=== PATIENT | female | born 1940 | race Caucasian/White ===

== ENCOUNTER → 2016-10-06 | Outpatient (CLI) | payer BC ==
[~2016-10-06] MED LIST: ASPEC325 PO; ATOR10TA88 PO; CHOL1000 PO; LEVO88TA PO; LPT40 PO; PRED-301 PO; SYN100 PO
[2016-10-06 11:19] LABS: ALT/SGPT 22 U/L (12-78); AST/SGOT 13 U/L (15-37); BLOOD UREA NITROGEN 19 mg/dl (7-18); BUN/CREATININE RATIO 23.8 (10-20); CALCIUM 8.5 mg/dl (8.5-10.1); CARBON DIOXIDE 30 mmol/L (21-32); CHLORIDE 106 mmol/L (98-107); GLUCOSE 110 mg/dl (70-99); POTASSIUM 4.1 mmol/L (3.5-5.1); SODIUM 141 mmol/L (136-145)
[2016-10-06 11:21] LABS: ESTIMATED AVERAGE GLUCOSE 123 mg/dl; HA1C FLAG Normal (Normal)
[2016-10-06 11:32] LABS: ALB/GLOB RATIO 1.1 (0.9-2); ALKALINE PHOSPHATASE 65 U/L (45-117); CHOLESTEROL 164 mg/dl (0-200); CHOLESTEROL/HDL RATIO 2.5; HDL CHOLESTEROL 66 mg/dl; LDL CHOLESTEROL CALCULATED 84 mg/dl; THYROID STIMULATING HORMONE 0.709 uIu/ml (0.300-4.500); TRIGLYCERIDES 71 mg/dl (0-150); VERY LOW DENSITY LIPOPROT CALC 14 mg/dl
--- NOTE | 2016-10-10 10:27 | CODING QUERY MEDICAL NECESSITY ---
SUPPORTING DIAGNOSIS NEEDED Dr. Lorenz, A supporting diagnosis is required for the test/procedure performed on this patient in order for us to be reimbursed by the patient's insurance. Please provide a supporting diagnosis for the following test/procedure listed below next to the test name along with your signature. *If there is no additional diagnosis for this patient that would support the following test/procedure please document that below next to the test/procedure. Test(s)/Procedure(s) that require a supporting diagnosis: * ([id number]) VITAMIN D ASSAY DIAGNOSIS: DATE OF SERVICE: 10/06/16 Provider Signature: Date: Thank you Kelvin Angel [facility] Information Management Once completed, please kindly fax back to [phone] For questions please call [phone]
== END | disposition home or self-care (01) ==
LOC: C.LABBC 08:10
PROVIDERS: ATTEND Internal Medicine Geriatric Medicine
DX: E03.9 Hypothyroidism, unspecified (principal); E04.2 Nontoxic multinodular goiter; E78.5 Hyperlipidemia, unspecified; R73.9 Hyperglycemia, unspecified; N95.0 Postmenopausal bleeding; E55.9 Vitamin D deficiency, unspecified

== ENCOUNTER → 2016-10-26 | Outpatient (CLI) | payer BC ==
[~2016-10-26] MED LIST changes: +ATOR10TA82 PO; -ATOR10TA88 PO
== END | disposition home or self-care (01) ==
LOC: C.LABSPEC 09:45
PROVIDERS: ATTEND Nurse Practitioner Family
DX: R39.9 Unspecified symptoms and signs involving the genitourinary system (principal)

== ENCOUNTER → 2016-11-13 | Outpatient (CLI) | payer BC ==
[2016-11-13 13:33] LABS: BASO % 0.4 %; BASO ABS # 0.04 K/uL (0-0.2); COMPLETE YES; EOS % 1.3 %; HEMATOCRIT 39.3 % (37-47); IG% 0.2 %; LYMPH % 14.4 %; LYMPH ABS # 1.35 K/uL (1.2-3.4); MEAN CELL VOLUME 91.8 fL (80-100); MEAN CORPUSCULAR HEMOGLOBIN 29.7 pg (25-34); MEAN CORPUSCULAR HGB CONC 32.3 g/dl (32-36); MEAN PLATELET VOLUME 10.2 fL (7.4-10.4); MONO % 15.3 %; NEUT % 68.4 %; PLATELET COUNT 319 K/uL (130-400); RED BLOOD COUNT 4.28 M/uL (4.2-5.4); WHITE BLOOD COUNT 9.37 K/uL (4.8-10.8)
[2016-11-13 14:18] LABS: LYME DISEASE AB IGG NEG (NEG)
[2016-11-13 14:19] LABS: LYME DISEASE AB IGM NEG (NEG)
[2016-11-13 14:30] LABS: ALT/SGPT 21 U/L (12-78); BLOOD UREA NITROGEN 16 mg/dl (7-18); CALCIUM 9.1 mg/dl (8.5-10.1); CARBON DIOXIDE 31 mmol/L (21-32); CHLORIDE 104 mmol/L (98-107); CREATININE 0.71 mg/dl (0.60-1.20); GLUCOSE 91 mg/dl (70-99); POTASSIUM 3.8 mmol/L (3.5-5.1); SODIUM 142 mmol/L (136-145)
[2016-11-13 14:33] LABS: ALB/GLOB RATIO 0.9 (0.9-2); ALKALINE PHOSPHATASE 74 U/L (45-117); AST/SGOT 15 U/L (15-37)
[2016-11-13 15:06] LABS: URINE APPEARANCE CLEAR (CLEAR); URINE BILIRUBIN NEG (NEG); URINE COLOR YELLOW; URINE EPITHELIAL CELL AUTO 0-5 /lpf (0-5); URINE NITRITE NEG (NEG); URINE PH 6.5 (4.5-7.5); URINE SPECIFIC GRAVITY 1.018 (1.000-1.030); UROBILINOGEN NEG (NEG)
[2016-11-13 15:20] LABS: MANUAL MICROSCOPIC REQUIRED? NO; REVIEW REQ? NO
== END | disposition home or self-care (01) ==
LOC: C.LABBC 09:11
PROVIDERS: ATTEND Physician Assistant Medical
DX: R50.9 Fever, unspecified (principal); R52 Pain, unspecified

== ENCOUNTER → 2016-11-20 | Outpatient (CLI) | payer BC ==
--- NOTE | 2016-11-20 12:16 | DIAGNOSTIC IMAGING REPORT ---
L-SPINE MIN 4 VIEWS ROUTINE CLINICAL HISTORY: R52 Generalized [id number] COMPARISON STUDY: 06/09/2008 FINDINGS: There is no pathologic bowel dilatation. There are surgical clips in the right upper quadrant consistent with a prior cholecystectomy. There are degenerative changes with marked disc space narrowing at the L5-S1 level. Since the prior study, the patient has developed superior endplate T12 and L1 compression deformities. There is progressive disc space narrowing at the L2-3 level. IMPRESSION: 1. Progressive degenerative changes 2. Interval development of superior endplate T12 and L1 compression deformities Electronically signed by: Atif [place] M.D. 11/20/2016 12:15 PM Dictated Date/Time: 11/20/2016 12:14 PM
--- NOTE | 2016-11-20 12:21 | DIAGNOSTIC IMAGING REPORT ---
RIGHT HUMERUS MIN 2 VIEWS ROUTINE CLINICAL HISTORY: R52 Generalized [id number] Right pain COMPARISON: None. DISCUSSION: Moderate generalized degenerative change of the right shoulder and to lesser extent right elbow. No well-defined acute bony abnormality. Possible nonacute Hill-Sachs type deformity posterior lateral aspect humeral head. There is no evidence for soft tissue swelling. IMPRESSION: Moderate degenerative change of the right elbow with somewhat more significant degenerative change right shoulder. No acute process specifically of the humerus Electronically signed by: Aaron Alaniz M.D. 11/20/2016 12:19 PM Dictated Date/Time: 11/20/2016 12:18 PM
[2016-11-22 15:58] LABS: ANA TITER 1:40 TITER (<1:40)
== END | disposition home or self-care (01) ==
LOC: C.RADBC 10:56
PROVIDERS: ATTEND Physician Assistant Medical
DX: R52 Pain, unspecified (principal); E55.9 Vitamin D deficiency, unspecified

== ENCOUNTER → 2016-11-27 | Outpatient (CLI) | payer BC | END | disposition home or self-care (01) | LOC: C.MAMM 12:30 | PROVIDERS: ATTEND Physician Assistant Medical | DX: R52 Pain, unspecified (principal); M85.852 Other specified disorders of bone density and structure, left thigh ==

== ENCOUNTER → 2016-12-19 | Outpatient (CLI) | payer BC ==
[2016-12-22 22:33] LABS: ANTI-CENTROMERE AB <1.0 NEG AI (<1.0 NEG); ANTI-SS-A <1.0 NEG AI (<1.0 NEG); ANTI-SS-B <1.0 NEG AI (<1.0 NEG); DNA ds CRITHIDIA NEGATIVE (NEGATIVE); PARVOVIRUS IgG INDEX 7.1 (<0.9); PARVOVIRUS IgM INDEX 0.1 (<0.9); Sm Antibody <1.0 NEG AI (<1.0 NEG)
== END ==
LOC: C.LABBC 07:28
PROVIDERS: ATTEND Internal Medicine Rheumatology
DX: M35.3 Polymyalgia rheumatica (principal); M79.1 Myalgia; R70.0 Elevated erythrocyte sedimentation rate

== ENCOUNTER → 2017-01-22 | Outpatient (CLI) | payer BC ==
[~2017-01-22] MED LIST changes: -ATOR10TA82 PO; +ATOR10TA88 PO
== END | disposition home or self-care (01) ==
LOC: C.LABBC 07:35
PROVIDERS: ATTEND Internal Medicine Rheumatology
DX: M35.3 Polymyalgia rheumatica (principal); Z79.52 Long term (current) use of systemic steroids

== ENCOUNTER → 2017-03-05 | Outpatient (CLI) | payer BC | END | disposition home or self-care (01) | LOC: C.LABBC 07:38 | PROVIDERS: ATTEND Internal Medicine Rheumatology | DX: E55.9 Vitamin D deficiency, unspecified (principal); M35.3 Polymyalgia rheumatica; Z79.52 Long term (current) use of systemic steroids ==

== ENCOUNTER → 2017-03-22 | Outpatient (CLI) | payer BC ==
[2017-03-22 11:26] LABS: BLOOD UREA NITROGEN 19 mg/dl (7-18); CARBON DIOXIDE 33 mmol/L (21-32); CHLORIDE 104 mmol/L (98-107); CREATININE 0.99 mg/dl (0.60-1.20); GLUCOSE 98 mg/dl (70-99); POTASSIUM 3.6 mmol/L (3.5-5.1); SODIUM 140 mmol/L (136-145)
[2017-03-22 11:34] LABS: BLOOD UREA NITROGEN 20 mg/dl (7-18)
== END | disposition home or self-care (01) ==
LOC: C.LABBC 07:28
PROVIDERS: ATTEND Dermatology
DX: Z85.820 Personal history of malignant melanoma of skin (principal); R51 Headache; E03.9 Hypothyroidism, unspecified; E55.9 Vitamin D deficiency, unspecified

== ENCOUNTER 2017-03-28 15:13 | Inpatient (IN) | payer BC, OTHER ==
[~2017-03-28] VITALS: Ht 162.6 cm; Wt 71.9 kg
[~2017-03-28 15:13] MED LIST changes: -ASPEC325 PO; -CHOL1000 PO; -GADAVIST IV PRN; -LPT40 PO; -PRED-301 PO; -SYN100 PO
[2017-03-28] MEDS ORDERED: SODIUM CHLORIDE 0.9% 1000ML 1,000 ML IV SCH (15:24)
[2017-03-28] MEDS ORDERED: PRED-301 PO (15:41)
[2017-03-28] MEDS ORDERED: SYN100 PO (15:41)
[2017-03-28] MEDS ORDERED: CHOL1000 PO (15:41)
[2017-03-28 16:05] LABS: BASO % 0.3 %; BASO ABS # 0.03 K/uL (0-0.2); COMPLETE YES; EOS % 0.1 %; HEMATOCRIT 45.1 % (37-47); IG% 0.3 %; LYMPH % 8.4 %; MEAN CELL VOLUME 92.6 fL (80-100); MEAN CORPUSCULAR HEMOGLOBIN 28.7 pg (25-34); MEAN PLATELET VOLUME 10.2 fL (7.4-10.4); MONO % 3.2 %; NEUT % 87.7 %; PLATELET COUNT 222 K/uL (130-400); RED BLOOD COUNT 4.87 M/uL (4.2-5.4); WHITE BLOOD COUNT 10.77 K/uL (4.8-10.8)
--- NOTE | 2017-03-28 16:05 | DIAGNOSTIC IMAGING REPORT ---
CHEST ONE VIEW PORTABLE HISTORY: Stroke COMPARISON: None. FINDINGS: Low lung volumes. The heart is normal in size. Mild diffuse interstitial thickening. Hazy appearance to the left lung base. No pneumothorax. IMPRESSION: 1. Mild diffuse interstitial thickening. This may be chronic. 2. Hazy appearance to the left lung base which may represent a small left pleural effusion or consolidation. Electronically signed by: Nasir Mullen M.D. 03/28/2017 4:04 PM Dictated Date/Time: 03/28/2017 4:03 PM
[2017-03-28 16:13] LABS: PARTIAL THROMBOPLASTIN RATIO 0.9; PROTHROMBIN TIME (PATIENT) 10.3 SECONDS (9.0-12.0)
[2017-03-28 16:18] VITALS: BP 137/85; PULSE 89; TEMP 36.7; O2SAT 96; Ht 162.6 cm; Wt 71.9 kg
[2017-03-28 16:23] LABS: BUN/CREATININE RATIO 17.4 (10-20); CALCIUM 8.7 mg/dl (8.5-10.1); CREATININE 0.96 mg/dl (0.60-1.20); POTASSIUM 3.6 mmol/L (3.5-5.1)
[2017-03-28 16:30] LABS: CKMB/CK RATIO 2.6 (0-3.0)
[2017-03-28] MEDS ORDERED: ASPIRIN 81 MG CHEW PO STA (16:34)
[2017-03-28] MEDS ORDERED: PHARMACIST DISCHARGE MED REC CONSULT PRN (17:15)
--- NOTE | 2017-03-28 17:44 | EMERGENCY ROOM VISIT NOTE ---
History Report prepared by Leta: Evangelina Suarez Under the Supervision of: Dr. Brijesh Mack D.O. First contact with patient: 15:18 Chief Complaint: ABNORMAL DIAGNOSTIC TESTING Stated Complaint: STROKE SYMPTOMS History of Present Illness The patient is a 76 year old female who presents to the Emergency Room after an abnormal MRI that she had this morning. The patient was diagnosed with polymyalgia rheumatica in October 2016. She has been getting "head pains" above her left eye since then. She describes this pain as a "pressure" in her head. She went to her sponge buffer who ordered an MRI of her brain. The patient had the MRI done this morning and was called later in the day. She was told that her scan was abnormal and she should come to the ED for further evaluation. The patient states that she had one episode a couple of weeks ago where she was dizzy but denies feeling unsteady on feet recently. She does have headaches intermittently. Pt denies changes in vision or speech, fevers, jaw pain, arm pain, chest pain, shortness of breath, nausea, vomiting, diarrhea, pain with urination, and melena. She denies any previous history of stroke or atrial fibrillation. Patient also admits to mild chest tightness on the right side of her chest this morning. She notes it did track up to her right jaw. She has had episodes like this before in the past which have woken her up from sleep. She did feel like indigestion. She did not come in for this as it was not on the left side. Source of History: patient Onset: this morning Position: head Quality: other (pressure) Timing: intermittent Associated Symptoms: No fevers, No chest pain, No SOB, No nausea, No vomiting, No melena, No diarrhea, No urinary symptoms Review of Systems See HPI for pertinent positives & negatives. A total of 10 systems reviewed and were otherwise negative. Past Medical & Surgical Medical Problems: (1) Polymyalgia rheumatica Family History Non-pertinent due to advanced age. Social History Smoking Status: Never Smoker Occupation Status: unemployed Current/Historical Medications Scheduled Atorvastatin (Lipitor), 5 MG PO HS Cholecalciferol (Vitamin D3), 5,000 INTER.UNIT PO DAILY Levothyroxine Sodium (Synthroid), 100 MCG PO QAM Prednisone (Prednisone), 17.5 MG PO DAILY Allergies Coded Allergies: Adhesives (Verified Allergy, Unknown, RASH AND ITCHING, 03/28/17) Bacitracin (Verified Allergy, Unknown, RASH AND ITCHING, 03/28/17) Neomycin (Verified Allergy, Unknown, RASH AND ITCHING, 03/28/17) Polymyxin B (Verified Allergy, Unknown, RASH AND ITCHING, 03/28/17) Acetaminophen (Verified Adverse Reaction, Unknown, NAUSEA, 03/28/17) Hydrocodone (Verified Adverse Reaction, Unknown, NAUSEA, 03/28/17) Physical Exam Vital Signs Date Time Temp Pulse Resp B/P (MAP) Pulse Ox O2 Delivery O2 Flow Rate FiO2 03/28/17 16:34 99 16 163/99 98 Room Air 03/28/17 16:18 36.7 89 18 137/85 96 Room Air 03/28/17 15:59 98 Room Air 03/28/17 15:55 96 03/28/17 15:15 36.7 97 18 97 Room Air Physical Exam GENERAL: alert, sitting up in bed, well appearing, well nourished, no distress, non-toxic EYE EXAM: normal conjunctiva, PERRL and EOM's intact OROPHARYNX: no exudate, no erythema, lips, buccal mucosa, and tongue normal and mucous membranes are moist NECK: supple, no nuchal rigidity, no adenopathy, non-tender LUNGS: Clear to auscultation. Normal chest wall mechanics HEART: no murmurs, S1 normal and S2 normal ABDOMEN: abdomen soft, non-tender, normo-active bowel sounds, no masses, no rebound or guarding. BACK: Back is symmetrical on inspection and there is no deformity, no midline tenderness, no CVA tenderness. SKIN: no rashes and no bruising UPPER EXTREMITIES: upper extremities are grossly normal. LOWER EXTREMITIES: No pitting edema. NEURO EXAM: Normal sensorium, cranial nerves II-XII intact, normal speech, no weakness of arms, no weakness of legs. No drift. Finger to nose intact. Gross sensation intact. Rapid alternating movements of the upper extremities intact. Medical Decision & Procedures ER Provider Diagnostic Interpretation: Radiology results as stated below per my review and the radiologist's interpretation: Brain MRI WITH AND WITHOUT CONTRAST HISTORY: HEADACHE, HX OF MELANOMA TECHNIQUE: Multiplanar multisequence MRI of the brain was performed both before and after the intravenous administration of contrast. COMPARISON STUDY: None. FINDINGS: Multiple scattered foci of increased signal within the cerebellar hemispheres, left posterior frontal lobe, and bilateral parietal and occipital lobes on the DWI sequences. The majority of these do not demonstrate clear loss of signal on the ADC map and therefore favor T2 shine through. The majority of these favor subacute to chronic infarcts. A single 5 mm focus within the left cerebellar hemisphere on image 5 appears to represent restricted diffusion and is consistent with an acute infarct. Dominant focus of suspected subacute infarct within the right cerebellar hemisphere measures 2 cm. Multiple additional small focal old infarcts within the bilateral cerebellar hemispheres and right parietal lobe. Some of these demonstrate faint linear enhancement best seen within the left posterior frontal lobe on image 16 and the right posterior cerebellum on image 5. This can also be seen in the setting of subacute infarcts. No areas of masslike enhancement identified. The major vascular flow-voids at the skull base are well-maintained. Small retention cysts within the left maxillary sinus. The orbits are unremarkable. Mild atrophic changes within the brain. There are also mild microvascular ischemic changes seen within the periventricular white matter. IMPRESSION: Multiple scattered areas of signal abnormality within the brain as described above with the majority favoring subacute to chronic infarcts. Possible punctate acute infarct within the left cerebellar hemisphere measuring 5 mm. The right cerebellar and left frontal areas of signal abnormality demonstrate faint linear enhancement which can be seen in the setting of subacute infarcts. No areas of masslike enhancement to suggest metastatic disease. A 1-2 month brain MRI follow-up is recommended to ensure the expected evolution of the subacute to chronic infarcts and resolution of the enhancement. These findings were discussed with Dr. Debra Giordano at 1:45 PM on 03/28/2017. CHEST ONE VIEW PORTABLE HISTORY: Stroke COMPARISON: None. FINDINGS: Low lung volumes. The heart is normal in size. Mild diffuse interstitial thickening. Hazy appearance to the left lung base. No pneumothorax. IMPRESSION: 1. Mild diffuse interstitial thickening. This may be chronic. 2. Hazy appearance to the left lung base which may represent a small left pleural effusion or consolidation. Electronically signed by: Nasir Mullen M.D. 03/28/2017 4:04 PM Dictated Date/Time: 03/28/2017 4:03 PM Laboratory Results 03/28/17 15:52 Red Blood Count 4.87, Mean Corpuscular Volume 92.6, Mean Corpuscular Hemoglobin 28.7, Mean Corpuscular Hemoglobin Concent 31.0, Mean Platelet Volume 10.2, Neutrophils (%) (Auto) 87.7, Lymphocytes (%) (Auto) 8.4, Monocytes (%) (Auto) 3.2, Eosinophils (%) (Auto) 0.1, Basophils (%) (Auto) 0.3, Neutrophils # (Auto) 9.45, Lymphocytes # (Auto) 0.90, Monocytes # (Auto) 0.35, Eosinophils # (Auto) 0.01, Basophils # (Auto) 0.03 03/28/17 15:52 Test 03/28/17 15:34 03/28/17 15:52 Bedside Prothrombin Time INR 1.0 (0.9-1.1) Bedside Glucose 168 mg/dl (70-90) White Blood Count 10.77 K/uL (4.8-10.8) Red Blood Count 4.87 M/uL (4.2-5.4) Hemoglobin 14.0 g/dL (12.0-16.0) Hematocrit 45.1 % (37-47) Mean Corpuscular Volume 92.6 fL (80-100) Mean Corpuscular Hemoglobin 28.7 pg (25-34) Mean Corpuscular Hemoglobin Concent 31.0 g/dl (32-36) Platelet Count 222 K/uL (130-400) Mean Platelet Volume 10.2 fL (7.4-10.4) Neutrophils (%) (Auto) 87.7 % Lymphocytes (%) (Auto) 8.4 % Monocytes (%) (Auto) 3.2 % Eosinophils (%) (Auto) 0.1 % Basophils (%) (Auto) 0.3 % Neutrophils # (Auto) 9.45 K/uL (1.4-6.5) Lymphocytes # (Auto) 0.90 K/uL (1.2-3.4) Monocytes # (Auto) 0.35 K/uL (0.11-0.59) Eosinophils # (Auto) 0.01 K/uL (0-0.5) Basophils # (Auto) 0.03 K/uL (0-0.2) RDW Standard Deviation 47.4 fL (36.4-46.3) RDW Coefficient of Variation 13.9 % (11.5-14.5) Immature Granulocyte % (Auto) 0.3 % Immature Granulocyte # (Auto) 0.03 K/uL (0.00-0.02) Prothrombin Time 10.3 SECONDS (9.0-12.0) Prothromb Time International Ratio 1.0 (0.9-1.1) Activated Partial Thromboplast Time 24.0 SECONDS (21.0-31.0) Partial Thromboplastin Ratio 0.9 Anion Gap 6.0 mmol/L (3-11) Est Creatinine Clear Calc Drug Dose 49.6 ml/min Estimated GFR () 66.6 Estimated GFR (Non- 57.4 BUN/Creatinine Ratio 17.4 (10-20) Calcium Level 8.7 mg/dl (8.5-10.1) Total Creatine Kinase 92 U/L (26-192) Creatine Kinase MB 2.4 ng/ml (0.5-3.6) Creatine Kinase MB Ratio 2.6 (0-3.0) Troponin I 0.046 ng/ml (0-0.045) Laboratory results per my review. Medications Administered Medications (Trade) Dose Ordered Sig/Carlos Route Start Time Stop Time Status Last Admin Dose Admin Sodium Chloride 1,000 ml @ 50 mls/hr Q20H IV 03/28/17 15:24 04/27/17 15:23 03/28/17 16:04 50 MLS/HR Aspirin (Aspirin Chew) 324 mg NOW STAT PO 03/28/17 16:34 03/28/17 16:50 DC 03/28/17 17:02 324 MG ECG Indication: other Rate (beats per minute): 92 Rhythm: sinus rhythm Findings: PAC, Q waves (Inferior) ED Course ED COURSE: Vital signs were reviewed and showed tachycardic. The patients medical record was reviewed The above diagnostic studies were performed and reviewed. ED treatments and interventions as stated above. 1518: The patient was evaluated in room C10. A complete history and physical examination was performed. 1524: NSS 1000 ml @ 50 mls/hr IV 1610: I spoke with Dr. Pride. We discussed the patient's case. The patient will be evaluated by the [facility] for further management. 1621: Upon reevaluation, the patient is resting comfortably. I discussed my findings with the patient and she understands and agrees with the treatment plan. Based on the patients age, coexisting illnesses, exam and lab findings the decision to treat as an inpatient was made. The patient remained stable while under my care. The patient will be evaluated for further management. 1633: I updated the patient on her ECG results. 1634: Aspirin 324 mg PO Medical Decision Differential Diagnosis includes but is not limited to ischemic Stroke, hemorrhagic stroke, bells palsy, mass, neoplasm, migraine headache, seizure, subarachnoid hemorrhage, TIA, and transient global amnesia. 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 She has been having intermittent headaches over the past several weeks. Last headache was yesterday. These are abnormal for her. She also admits to intermittent dizziness although the last time she can recall this occurring was 2 weeks ago. Patient is completely neurologic intact. MRI was reviewed. CBC all BNP is fairly unremarkable. Troponin was elevated at 0.046. This is consistent with a possible N STEMI which would be explained by her chest pain this morning. She has absolutely no chest pain or shortness of breath currently. EKG shows no acute ischemia. She was given aspirin. She has nothing to suggest a dissection. Patient family were updated at bedside. I discussed case with internal medicine. She'll be admitted for further workup of CVA and NSTEMI. Medication Reconcilliation Current Medication List: was personally reviewed by me Blood Pressure Screening Patient's blood pressure: Normal blood pressure Consults Time Called: 1604 Consulting Physician: Dr. Pride Returned Call: [address] Pride. We discussed the patient's case. The patient will be evaluated by the [facility] for further management. Impression Primary Impression: CVA (cerebral vascular accident) Additional Impression: NSTEMI (non-ST elevated myocardial infarction) Scribe Attestation The scribe's documentation has been prepared under my direction and personally reviewed by me in its entirety. I confirm that the note above accurately reflects all work, treatment, procedures, and medical decision making performed by me. Departure Information Dispostion Being Evaluated By Hospitalist Milton Ramos M.D. (PCP) Patient Instructions My [facility] Stroke History Time Last Known Well Unknown Stroke t-PA Criteria Reviewed Does NOT meet criteria for t-PA Reason t-PA Not Given Treatment not indicated Problem Qualifiers Primary Impression: CVA (cerebral vascular accident) CVA mechanism: unspecified Qualified Codes: I63.9 - Cerebral infarction, unspecified
[2017-03-28] MEDS ORDERED: POLYETHYLENE (MIRALAX) 17 GM PACK PO PRN (18:00)
[2017-03-28] MEDS ORDERED: MoRPHine SULFATE 2 MG/ML CARP IV PRN (18:00)
[2017-03-28] MEDS ORDERED: ALUMINUM/MAGNESIUM/SIMETH (MAALOX MAX) 30 ML UDC PO PRN (18:00)
[2017-03-28] MEDS ORDERED: ACETAMINOPHEN 325 MG TAB PO PRN (18:00)
[2017-03-28] MEDS ORDERED: ONDANSETRON INJ 2 MG/ML 2 ML VIAL IV PRN (18:00)
[2017-03-28] MEDS ORDERED: MAGNESIUM HYDROXIDE SUSP 30 ML UDC PO PRN (18:00)
[2017-03-28 18:34] VITALS: O2SAT 98
--- NOTE | 2017-03-28 18:38 | History and Physical ---
History & Physical Date & Time of Service: Mar 28, 2017 at 18:13 Chief Complaint: Stroke Symptoms Primary Care Physician: Milton Lorenz M.D. History of Present Illness Source: patient 76 y/o F Hx polymyalgia rheumatica, HPL, melanoma. Pt was at her image archivist office earlier in day and had c/o a chronic frontal LAZAR which she thought was sinus-related. The image archivist reasoned that due to her history of melanoma and current steroid use, she should have an MRI to r/o a lesion. She has not c/ o visual disturbances or temporal pain. The pt had an MRI and then proceeded to [employer] for shopping. She was phoned by her image archivist's office due to abnormal MRI findings indicating multiple areas of subacute infarct in addition to an area of suspected acute infarct. She describes having a brief dizzy spell 1-2 weeks ago but otherwise does not describe any symptoms which may correlate with a CVA. Initial labs revealed a borderline troponin elevation. This lead to additional questioning where the pt stated she had had some R sided CP in the AM. She did not ave accompanying symptoms of SOB, nausea or diaphoresis. Initial EKG is not consistent with acute ischemia. The pt is awake. alert and denies any acute symptoms at the time of admission. Past Medical/Surgical History Medical Problems: (1) Polymyalgia rheumatica Status: Chronic 2) Hyperlipidemia 3) Hypothyroidism 4) Melanoma - 3 lesions excised from L forearm Family History Mother at age 99 - CHF Father at age 94 - unspecified CA Social History Pt is independent - does not drink or smoke Smoking Status: Never Smoker Occupational Status: unemployed Multi-Drug Resistant Organisms History of MDRO: No Allergies Coded Allergies: Adhesives (Verified Allergy, Unknown, RASH AND ITCHING, 03/28/17) Bacitracin (Verified Allergy, Unknown, RASH AND ITCHING, 03/28/17) Neomycin (Verified Allergy, Unknown, RASH AND ITCHING, 03/28/17) Polymyxin B (Verified Allergy, Unknown, RASH AND ITCHING, 03/28/17) Acetaminophen (Verified Adverse Reaction, Unknown, NAUSEA, 03/28/17) Hydrocodone (Verified Adverse Reaction, Unknown, NAUSEA, 03/28/17) Home Medications Scheduled Atorvastatin (Lipitor), 5 MG PO HS Cholecalciferol (Vitamin D3), 5,000 INTER.UNIT PO DAILY Levothyroxine Sodium (Synthroid), 100 MCG PO QAM Prednisone (Prednisone), 17.5 MG PO DAILY Review of Systems Constitutional: No fever, No chills, No sweats Eyes: No worsening of vision ENT: No hearing loss, No nasal symptoms Respiratory: No cough, No wheezing Cardiovascular: No chest pain, No orthopnea, No PND Abdomen: No pain, No nausea, No vomiting Musculoskeletal: + joint pain, + muscle pain (Chronic) Genitourinary - Female: No dysuria Neurologic: + weakness, + problem reported (Chronic frontal LAZAR), No memory loss , No paralysis Psychiatric: No depression symptoms Endocrine: + fatigue Hematologic / Lymphatic: No abnormal bleeding/bruising Integumentary: No rash Allergic / Immunologic: No environmental allergies Physical Exam Vital Signs Date Time Temp Pulse Resp B/P (MAP) Pulse Ox O2 Delivery O2 Flow Rate FiO2 03/28/17 16:34 99 16 163/99 98 Room Air 03/28/17 16:18 36.7 89 18 137/85 96 Room Air 03/28/17 15:59 98 Room Air 03/28/17 15:55 96 03/28/17 15:15 36.7 97 18 97 Room Air General Appearance: WD/WN, no apparent distress, + pertinent finding (Pleasant elderly female - no acute distress) Head: normocephalic Eyes: normal inspection ENT: normal ENT inspection, pharynx normal Neck: supple, no JVD Respiratory/Chest: chest non-tender, lungs clear, normal breath sounds Cardiovascular: regular rate, rhythm, no edema, no gallop Abdomen/GI: normal bowel sounds, non tender, soft Back: normal inspection, no CVA tenderness Extremities/Musculoskelatal: normal inspection, no calf tenderness, normal capillary refill, no pedal edema, normal range of motion Neurologic/Psych: overhauler II-XII nml as tested, no motor/sensory deficits, alert, normal mood/affect, normal reflexes, oriented x 3 Skin: normal color, warm/dry, no rash Diagnostics Laboratory Results Results Past 24 Hours Test 03/28/17 15:34 03/28/17 15:52 Range/Units Bedside Prothrombin Time INR 1.0 0.9-1.1 Bedside Glucose 168 70-90 mg/dl White Blood Count 10.77 4.8-10.8 K/uL Red Blood Count 4.87 4.2-5.4 M/uL Hemoglobin 14.0 12.0-16.0 g/dL Hematocrit 45.1 37-47 % Mean Corpuscular Volume 92.6 80-100 fL Mean Corpuscular Hemoglobin 28.7 25-34 pg Mean Corpuscular Hemoglobin Concent 31.0 32-36 g/dl Platelet Count 222 130-400 K/uL Mean Platelet Volume 10.2 7.4-10.4 fL Neutrophils (%) (Auto) 87.7 % Lymphocytes (%) (Auto) 8.4 % Monocytes (%) (Auto) 3.2 % Eosinophils (%) (Auto) 0.1 % Basophils (%) (Auto) 0.3 % Neutrophils # (Auto) 9.45 1.4-6.5 K/uL Lymphocytes # (Auto) 0.90 1.2-3.4 K/uL Monocytes # (Auto) 0.35 0.11-0.59 K/uL Eosinophils # (Auto) 0.01 0-0.5 K/uL Basophils # (Auto) 0.03 0-0.2 K/uL RDW Standard Deviation 47.4 36.4-46.3 fL RDW Coefficient of Variation 13.9 11.5-14.5 % Immature Granulocyte % (Auto) 0.3 % Immature Granulocyte # (Auto) 0.03 0.00-0.02 K/uL Prothrombin Time 10.3 9.0-12.0 SECONDS Prothromb Time International Ratio 1.0 0.9-1.1 Activated Partial Thromboplast Time 24.0 21.0-31.0 SECONDS Partial Thromboplastin Ratio 0.9 Sodium Level 140 136-145 mmol/L Potassium Level 3.6 3.5-5.1 mmol/L Chloride Level 106 98-107 mmol/L Carbon Dioxide Level 28 21-32 mmol/L Anion Gap 6.0 3-11 mmol/L Blood Urea Nitrogen 17 7-18 mg/dl Creatinine 0.96 0.60-1.20 mg/dl Est Creatinine Clear Calc Drug Dose 49.6 ml/min Estimated GFR () 66.6 Estimated GFR (Non- 57.4 BUN/Creatinine Ratio 17.4 10-20 Random Glucose 173 70-99 mg/dl Calcium Level 8.7 8.5-10.1 mg/dl Total Creatine Kinase 92 26-192 U/L Creatine Kinase MB 2.4 0.5-3.6 ng/ml Creatine Kinase MB Ratio 2.6 0-3.0 Troponin I 0.046 0-0.045 ng/ml Diagnostic Radiology MRI brain: Multiple scattered areas of signal abnormality within the brain as described above with the majority favoring subacute to chronic infarcts. Possible punctate acute infarct within the left cerebellar hemisphere measuring 5 mm. The right cerebellar and left frontal areas of signal abnormality demonstrate faint linear enhancement which can be seen in the setting of subacute infarcts. No areas of masslike enhancement to suggest metastatic disease. A 1-2 month brain MRI follow-up is recommended to ensure the expected evolution of the subacute to chronic infarcts and resolution of the enhancement. EKG Sinus - normal axis - inf Q wvs - no acute ischemia changes Impression Assessment and Plan 76 y/o F Hx polymyalgia rheumatica, HPL, melanoma. Pt was at her image archivist office earlier in day and had c/o a chronic frontal LAZAR which she thought was sinus-related. The image archivist reasoned that due to her history of melanoma and current steroid use, she should have an MRI to r/o a lesion. She was then phoned by her image archivist's office due to abnormal MRI findings indicating multiple areas of subacute infarct in addition to an area of suspected acute infarct. She describes having a brief dizzy spell 1-2 weeks ago but otherwise does not describe any symptoms which may correlate with a CVA. Initial labs revealed a borderline troponin elevation. This lead to additional questioning where the pt stated she had had some R sided CP in the AM. Initial EKG is not consistent with acute ischemia. 1) CVA - multiple affected areas without significant impairments - may indicate emboli. Pt admitted with CVA protocol - will provide ASA, increase statin dose - MRA,echo, neuro consult pending. 2) Elevated trop - echo pending - currently asymptomatic - no history of heart disease - Statin dose increased although may not tolerate high-intensity therapy due to chronic muscle pain. Echo and serial trops in addition to cardio consult requested. 3) Polymyalgia - will remain on prescribed dose of prednisone. Full code - Lovenox prophylaxis Total time for this admit including review of labs, meds, EKG, imaging, records - discussion with pt, family and ER attending - 40 min Level of Care Telemetry Advanced Directives Existing Living Will: Yes Existing Power of Life Guard: Yes Resuscitation Status FULL RESUSCITATION VTE Prophylaxis VTE Risk Assessment Done? Y/N: Yes Risk Level: High Given or contraindicated: Enoxaparin (Lovenox)SQ
[2017-03-28 19:30] VITALS: BP 154/101; PULSE 76; TEMP 36.5; O2SAT 97
--- NOTE | 2017-03-28 19:48 | DIAGNOSTIC IMAGING REPORT ---
CAROTID ARTERY ULTRASOUND CLINICAL HISTORY: Stroke. COMPARISON STUDY: None. TECHNIQUE: Real-time, grayscale, and color Doppler sonography of the carotid and vertebral arteries was performed. Images were viewed in the transverse and longitudinal planes. FINDINGS: There is mild atherosclerotic plaque. Velocity measurements are listed below. COMMON CAROTID PEAK SYSTOLIC VELOCITY (CM/S): RIGHT 59 LEFT 86 ICA PEAK SYSTOLIC VELOCITY (CM/S): RIGHT 56 LEFT 62 The systolic ratios between the internal to common carotid arteries are normal. Antegrade flow is seen in the vertebral arteries. The external carotid arteries are patent. Blood pressure in the right arm measured 150/81. Blood pressure in the left arm measured 139/58. IMPRESSION: No evidence of a hemodynamically significant stenosis. Electronically signed by: Dane Bal M.D. 03/28/2017 7:47 PM Dictated Date/Time: 03/28/2017 7:45 PM
[2017-03-28] MEDS ORDERED: ATORVASTATIN 10 MG TAB PO SCH ×2 (21:00)
[2017-03-28] MEDS: ENOXAPARIN 40 MG/0.4 ML SYR SC SCH (21:14)
[2017-03-28 23:06] VITALS: BP 146/75; PULSE 65; TEMP 36.4; O2SAT 98
[2017-03-29 02:41] LABS: BASO % 0.3 %; BASO ABS # 0.03 K/uL (0-0.2); COMPLETE YES; EOS % 1.2 %; IG% 0.3 %; LYMPH % 27.2 %; LYMPH ABS # 2.47 K/uL (1.2-3.4); MEAN CELL VOLUME 90.9 fL (80-100); MEAN CORPUSCULAR HEMOGLOBIN 29.7 pg (25-34); MEAN CORPUSCULAR HGB CONC 32.6 g/dl (32-36); MONO % 10.9 %; NEUT % 60.1 %; PLATELET COUNT 194 K/uL (130-400); RED BLOOD COUNT 4.18 M/uL (4.2-5.4); WHITE BLOOD COUNT 9.09 K/uL (4.8-10.8)
[2017-03-29 02:43] LABS: POTASSIUM 3.5 mmol/L (3.5-5.1)
[2017-03-29 02:45] LABS: BUN/CREATININE RATIO 20.3 (10-20); CREATININE 0.71 mg/dl (0.60-1.20)
[2017-03-29 02:48] LABS: CHOLESTEROL/HDL RATIO 2.7; MAGNESIUM 2.4 mg/dl (1.8-2.4)
[2017-03-29 03:41] VITALS: BP 146/81; PULSE 65; TEMP 36.6; O2SAT 96
[2017-03-29] MEDS: LEVOTHYROXINE 100 MCG TAB PO SCH (06:28)
[2017-03-29 06:39] LABS: ESTIMATED AVERAGE GLUCOSE 131 mg/dl; HA1C FLAG Normal (Normal)
[2017-03-29] MEDS: ASPIRIN 325 MG ECTAB PO SCH (08:18)
[2017-03-29] MEDS: CHOLECALCIFEROL 1000 INTER.UNIT TAB PO SCH (08:23)
[2017-03-29 08:37] VITALS: BP 109/57; PULSE 67; TEMP 36.3; O2SAT 98
[2017-03-29] MEDS ORDERED: ASPIRIN 81 MG ECTAB PO SCH (09:00)
--- NOTE | 2017-03-29 09:09 | Neurology Consultation ---
Neurology Consultation Date of Consultation: Mar 29, 2017. Attending Physician: Rio Roman M.D. Primary Care Physician: Milton Lorenz M.D. Reason for Consultation: Stroke History of Present Illness Source: patient, hospital records The patient is a 76-year-old female who has been admitted to the hospital for further evaluation of abnormalities on an outpatient MRI done yesterday morning , potentially consistent with multiple subacute and acute infarcts. The study was ordered by her physical therapy technician, Dr. Giordano, for further assessment of a vague left frontal headache, dizziness, and unsteady gait that has been present to varying degrees since this past October. The patient does have a history of melanoma that was discovered in the left forearm over 20 years ago and was successfully treated. The patient was diagnosed with polymyalgia rheumatica in October of this year by Dr. Dubose and is prescribed prednisone. Her primary symptoms, however, at that time consisted of proximal muscle pain which has resolved with corticosteroid therapy. The patient also reports some recent right -sided chest discomfort which radiates into the right shoulder region which she has been attributing to musculoskeletal pain. The patient does not have a known history of heart disease or arrhythmia. Electrocardiogram as revealed a sinus rhythm with PACs, 92 bpm. Her troponins have been mildly elevated. Her sedimentation rate completed in October was 41. Most recent sedimentation rate is 21. She is currently taking 17.5 mg of prednisone per day. I reviewed the images as well as the radiologist's interpretation of the recently completed brain MRI. The study does reveal multiple, scattered, subacute ischemic infarcts. There is an acute infarct within the left cerebellum measuring about 5 mm. There are areas of faint post contrast enhancement, one within the right cerebellar hemisphere, and other within the left frontal lobe consistent with subacute infarcts. There is no evidence of hemorrhage. The imaging findings seem to be more consistent with multifocal infarct rather than metastatic disease. A follow-up MRI in one to 2 months has been suggested. Past Medical/Surgical History Medical Problems: (1) CVA (cerebral vascular accident) Status: Acute (2) NSTEMI (non-ST elevated myocardial infarction) Status: Acute Family History Family history notable for congestive heart failure in the mother and an unspecified malignancy in father. Social History Occupation Status: unemployed Allergies Coded Allergies: Adhesives (Verified Allergy, Unknown, RASH AND ITCHING, 03/28/17) Bacitracin (Verified Allergy, Unknown, RASH AND ITCHING, 03/28/17) Neomycin (Verified Allergy, Unknown, RASH AND ITCHING, 03/28/17) Polymyxin B (Verified Allergy, Unknown, RASH AND ITCHING, 03/28/17) Acetaminophen (Verified Adverse Reaction, Unknown, NAUSEA, 03/28/17) Hydrocodone (Verified Adverse Reaction, Unknown, NAUSEA, 03/28/17) Current Inpatient Medications Current Inpatient Medications Medications (Trade) Dose Ordered Sig/Carlos Route Start Time Stop Time Status Last Admin Dose Admin Cholecalciferol (Vitamin D Tab) 5,000 inter.unit DAILY PO 03/29/17 09:00 04/28/17 08:59 03/29/17 08:23 5,000 INTER.UNIT Levothyroxine Sodium (Synthroid Tab) 100 mcg DAILYBB PO 03/29/17 06:00 04/28/17 06:59 03/29/17 06:28 100 MCG Prednisone (PredniSONE TAB) 17.5 mg DAILY PO 03/29/17 09:00 04/28/17 08:59 03/29/17 08:20 17.5 MG Miscellaneous Information (Pharmacist Discharge Med Rec Consult) 1 ea UD PRN N/A 03/28/17 17:15 04/27/17 17:14 Enoxaparin Sodium (Lovenox Inj) 40 mg HS SC 03/28/17 21:00 04/27/17 20:59 03/28/17 21:14 40 MG Acetaminophen (Tylenol Tab) 650 mg Q4H PRN PO 03/28/17 18:00 04/27/17 17:59 Al Hydrox/Mg Hydrox/Simethicone (Maalox Max Susp) 15 ml Q4H PRN PO 03/28/17 18:00 04/27/17 17:59 Magnesium Hydroxide (Milk Of Magnesia Susp) 30 ml Q12H PRN PO 03/28/17 18:00 04/27/17 17:59 Ondansetron HCl (Zofran Inj) 4 mg Q6H PRN IV 03/28/17 18:00 04/27/17 17:59 Morphine Sulfate (MoRPHine SULFATE INJ) 2 mg Q30M PRN IV 03/28/17 18:00 04/11/17 17:59 Polyethylene (Miralax Powder Packet) 17 gm DAILY PRN PO 03/28/17 18:00 04/27/17 17:59 Aspirin (Ecotrin Tab) 325 mg QAM PO 03/29/17 09:00 04/28/17 08:59 03/29/17 08:18 325 MG Atorvastatin Calcium (Lipitor Tab) 10 mg HS PO 03/28/17 21:00 04/27/17 20:59 03/28/17 21:13 10 MG Review of Systems Constitutional: Patient denies fever or chills Eyes: No vision loss or diplopia ENT: No vertigo or hearing loss Cardiovascular: As per history of present illness Respiratory: No coughing or shortness of breath Neurological: As per history of present illness Hematologic: No abnormal bleeding or swollen glands Dermatologic: As per history of present illness Musculoskeletal: As per history of present illness A full 10 point review of systems was obtained from this patient with pertinent positives and negatives described in history of present illness and otherwise listed above. All other systems reviewed and are negative. Physical Exam Vital Signs (Past 24 Hrs): Date Time Temp Pulse Resp B/P (MAP) Pulse Ox O2 Delivery O2 Flow Rate FiO2 03/29/17 08:37 36.3 67 14 109/57 (74) 98 Room Air 03/29/17 04:00 Room Air 03/29/17 03:41 36.6 65 17 146/81 (102) 96 Room Air 03/28/17 23:59 Room Air 03/28/17 23:06 36.4 65 20 146/75 (98) 98 Room Air 03/28/17 20:00 Room Air 03/28/17 19:30 36.5 76 18 154/101 (118) 97 Room Air 03/28/17 18:34 82 16 145/72 98 Room Air 03/28/17 16:34 99 16 163/99 98 Room Air 03/28/17 16:18 36.7 89 18 137/85 96 Room Air 03/28/17 15:59 98 Room Air 03/28/17 15:55 96 03/28/17 15:15 36.7 97 18 97 Room Air The patient is a well-developed, well-nourished, elderly female. She is sitting up comfortably in bed. The patient is alert and oriented to person place and time. Recent and remote memory intact. She is attentive with normal concentration and exhibits a normal spontaneous speech pattern. She names objects without difficulty. Patient exhibits an age-appropriate fund of knowledge and normal vocabulary. Visual villareal full to confrontation. Visual acuity normal. Pupils equal round reactive to light and accommodation. Eye movements normal. Facial sensation intact bilaterally. There is normal facial strength. No facial droop. Hearing intact to finger rub bilaterally. Palate elevates to midline. Shoulder shrug strength intact bilaterally. Tongue protrudes to midline. Sensation intact to light touch, temperature, vibration, and proprioception in all 4 limbs. Deep tendon reflexes are intact and symmetrical for the arms and legs bilaterally. Plantar responses downgoing bilaterally. There is no dysdiadochokinesia or dysmetria with finger to nose or heel to zapata bilaterally. Ophthalmoscopic examination reveals normal-appearing optic disks and posterior segments. No papilledema or hemorrhages. Carotid pulses normal bilaterally, no bruits to auscultation. Gait and station normal. Patient exhibits normal muscle strength and tone for all 4 limbs. There is no atrophy. No abnormal movements observed. Laboratory Results Past 24 Hours: 03/29/17 02:09 Red Blood Count 4.18, Mean Corpuscular Volume 90.9, Mean Corpuscular Hemoglobin 29.7, Mean Corpuscular Hemoglobin Concent 32.6, Mean Platelet Volume 10.0, Neutrophils (%) (Auto) 60.1, Lymphocytes (%) (Auto) 27.2, Monocytes (%) (Auto) 10.9, Eosinophils (%) (Auto) 1.2, Basophils (%) (Auto) 0.3, Neutrophils # (Auto ) 5.46, Lymphocytes # (Auto) 2.47, Monocytes # (Auto) 0.99, Eosinophils # (Auto ) 0.11, Basophils # (Auto) 0.03 03/29/17 02:09 Test 03/28/17 15:34 03/28/17 15:52 03/29/17 02:09 Bedside Prothrombin Time INR 1.0 (0.9-1.1) Bedside Glucose 168 mg/dl (70-90) Prothrombin Time 10.3 SECONDS (9.0-12.0) Prothromb Time International Ratio 1.0 (0.9-1.1) Activated Partial Thromboplast Time 24.0 SECONDS (21.0-31.0) Partial Thromboplastin Ratio 0.9 Estimated Average Glucose 131 mg/dl Hemoglobin A1c 6.2 % (4.5-5.6) Total Creatine Kinase 92 U/L (26-192) Creatine Kinase MB 2.4 ng/ml (0.5-3.6) Creatine Kinase MB Ratio 2.6 (0-3.0) White Blood Count 9.09 K/uL (4.8-10.8) Red Blood Count 4.18 M/uL (4.2-5.4) Hemoglobin 12.4 g/dL (12.0-16.0) Hematocrit 38.0 % (37-47) Mean Corpuscular Volume 90.9 fL (80-100) Mean Corpuscular Hemoglobin 29.7 pg (25-34) Mean Corpuscular Hemoglobin Concent 32.6 g/dl (32-36) Platelet Count 194 K/uL (130-400) Mean Platelet Volume 10.0 fL (7.4-10.4) Neutrophils (%) (Auto) 60.1 % Lymphocytes (%) (Auto) 27.2 % Monocytes (%) (Auto) 10.9 % Eosinophils (%) (Auto) 1.2 % Basophils (%) (Auto) 0.3 % Neutrophils # (Auto) 5.46 K/uL (1.4-6.5) Lymphocytes # (Auto) 2.47 K/uL (1.2-3.4) Monocytes # (Auto) 0.99 K/uL (0.11-0.59) Eosinophils # (Auto) 0.11 K/uL (0-0.5) Basophils # (Auto) 0.03 K/uL (0-0.2) RDW Standard Deviation 46.1 fL (36.4-46.3) RDW Coefficient of Variation 14.0 % (11.5-14.5) Immature Granulocyte % (Auto) 0.3 % Immature Granulocyte # (Auto) 0.03 K/uL (0.00-0.02) Anion Gap 4.0 mmol/L (3-11) Est Creatinine Clear Calc Drug Dose 67.0 ml/min Estimated GFR () 95.9 Estimated GFR (Non- 82.7 BUN/Creatinine Ratio 20.3 (10-20) Calcium Level 8.0 mg/dl (8.5-10.1) Magnesium Level 2.4 mg/dl (1.8-2.4) Troponin I 0.054 ng/ml (0-0.045) Triglycerides Level 108 mg/dl (0-150) Cholesterol Level 182 mg/dl (0-200) HDL Cholesterol 68 mg/dl LDL Cholesterol, Calculated 92 mg/dl VLDL Cholesterol, Calculated 22 mg/dl Cholesterol/HDL Ratio 2.7 Impression This is a 76-year-old female who has been experiencing a vague left frontal headache, dizziness, and unsteady gait occurring to varying degrees over the past few months. Her recently completed brain MRI suggests multiple cerebral infarcts in multiple vascular territories, some of these are acute while others are subacute. The appearance of these infarcts is concerning for occult cardioembolism. However, the patient was diagnosed with polymyalgia rheumatica this past spring and is currently prescribed corticosteroids. Thus, I am unable to exclude the possibility of temporal arteritis which may be associated with PMR. Metastatic disease related to her remote history (over 20 years ago) of melanoma would be very unlikely but cannot be completely excluded at this time. Plan I agree with obtaining an MRA of the head and neck as ordered. MR angiography of the head would be useful to exclude vasculitis. Review results of transthoracic echocardiogram when available. Continue cardiac monitoring to screen for significant arrhythmia including atrial fibrillation. I agree with daily aspirin at this time. I agree with the radiology recommendation to complete a follow-up brain MRI with and without contrast in one month in light of her history of melanoma. I would obtain an up-to-date sedimentation rate. Would consider obtaining a consultation with her cupola liner helper, Dr. Dubose. I would consider obtaining a temporal artery biopsy in this patient as well.
--- NOTE | 2017-03-29 10:27 | ECHOCARDIOGRAM REPORT ---
*NOTICE TO RECEIVING LIBERTARIAN AGENCY This information is strictly Confidential and protected under [place] law. [place] law prohibits you from making any further disclosure of this information unless further disclosure is expressly permitted by the written consent of the person to whom it pertains or is authorized by law. A general authorization for the release of medical or other information is not sufficient for this purpose. Hospital accepts no responsibility if the information is made available to any other person, INCLUDING THE PATIENT. Interpretation Summary * Name: PHYLLIS DALEY Study Date: 03/29/2017 06:24 AM BP: 146/81 mmHg * Patient Location: C.2E\[id number]\E202\S\1 HR: 65 * : 1940 (M/d/yyyy) Gender: Female Height: 64 in * Age: 76 yrs Ethnicity: CA Weight: 166 lb * Ordering Physician: Rolan Pride * Referring Physician: Elodia Giordano * Performed By: Mariia Chambers RDCS * * Reason For Study: EMBOLI/CVA * BSA: 1.8 m2 * -- Conclusions -- * 1. Normal left ventricular size and systolic function. EF 60-65%. No regional wall motion abnormalities. Mild concentric left ventricular hypertrophy. Type 2 diastolic dysfunction. * 2. No visualized ASD or PFO. No right to left atrial shunt noted following agitated saline injection. * 3. Mild aortic regurgitation. * 4. There is mild mitral regurgitation. * 5. No prior study available for comparison. Procedure Details * A saline contrast injection was performed to assess for cardiac shunting. * The injection was performed through an intravenous line in the right arm. * The attending nurse who injected the saline contrast was ANJU BURGESS RN. * A total of 20 cc of agitated saline was given. Left Ventricle * Normal left ventricular size and systolic function. EF 60-65%. No regional wall motion abnormalities. Mild concentric left ventricular hypertrophy. Type 2 diastolic dysfunction, pseudo normalized pattern. Right Ventricle * The right ventricle is normal in size and function. * The right ventricular systolic function is normal as assessed by tricuspid annular plane systolic excursion (TAPSE) (normal >1.5 cm). Atria * The left atrial size is normal. * Right atrial size is normal. * No visualized ASD or PFO. No right to left atrial shunt noted following agitated saline injection. Mitral Valve * The mitral valve leaflets appear normal. There is no evidence of stenosis, fluttering, or prolapse. * There is mild mitral regurgitation. Tricuspid Valve * The tricuspid valve is not well visualized, but is grossly normal. * There is no tricuspid stenosis. * Significant tricuspid regurgitation is absent. Aortic Valve * The aortic valve is trileaflet. * No hemodynamically significant valvular aortic stenosis. * Mild aortic regurgitation. Pulmonic Valve * The pulmonary valve is inadequately visualized, but the Doppler data is adequate for interpretation. * There is no pulmonic valvular stenosis. * There is no significant pulmonary regurgitation. Great Vessels * The aortic root is normal size. * Ascending aorta of normal dimension Pericardium/Pleural * There is no pericardial effusion. Great Vessels * Normal inferior vena cava size and collapsability with sniff indicates a normal right atrial pressure of 3 mmHg Left Ventricular Diastolic Function * Diastolic dysfunction, Grade II (pseudonormalization pattern). MMode 2D Measurements and Calculations IVSd 1.2 cm IVSs 1.6 cm LVIDd 4.6 cm LVIDs 3.1 cm LVPWd 1.2 cm LVPWs 1.9 cm IVS/LVPW 0.98 FS 32.6 % EDV(Teich) 96.7 ml ESV(Teich) 37.7 ml EF(Teich) 61.0 % EDV(cubed) 96.5 ml ESV(cubed) 29.6 ml EF(cubed) 69.4 % % IVS thick 33.7 % % LVPW thick 54.4 % LV mass(C)d 206.2 grams LV mass(C)dI 114.1 grams/m\S\2 LV mass(C)s 212.8 grams LV mass(C)sI 117.8 grams/m\S\2 SV(Teich) 59.0 ml SI(Teich) 32.7 ml/m\S\2 SV(cubed) 67.0 ml SI(cubed) 37.1 ml/m\S\2 Ao root diam 3.7 cm Ao root area 10.9 cm\S\2 LA dimension 3.4 cm asc Aorta Diam 3.5 cm LA/Ao 0.91 LVAd ap4 24.6 cm\S\2 LVLd ap4 7.0 cm EDV(MOD-sp4) 72.6 ml LVAs ap4 13.4 cm\S\2 LVLs ap4 5.9 cm ESV(MOD-sp4) 27.0 ml EF(MOD-sp4) 62.8 % LVAd ap2 23.9 cm\S\2 LVLd ap2 7.2 cm EDV(MOD-sp2) 69.1 ml LVAs ap2 12.4 cm\S\2 LVLs ap2 6.0 cm ESV(MOD-sp2) 23.2 ml EF(MOD-sp2) 66.4 % SV(MOD-sp4) 45.6 ml SI(MOD-sp4) 25.2 ml/m\S\2 SV(MOD-sp2) 45.9 ml SI(MOD-sp2) 25.4 ml/m\S\2 Doppler Measurements and Calculations MV E max khari 68.9 cm/sec MV A max khari 67.4 cm/sec MV E/A 1.0 MV dec time 0.17 sec Ao V2 max 139.9 cm/sec Ao max PG 7.8 mmHg Ao max PG (full) 3.8 mmHg AI max khari 419.1 cm/sec AI max PG 70.3 mmHg AI dec slope 172.5 cm/sec\S\2 AI P1/2t 711.6 msec LV V1 max PG 4.0 mmHg LV V1 max 99.9 cm/sec TV E max khari 45.6 cm/sec
[2017-03-29 10:58] VITALS: BP 155/92; PULSE 72; TEMP 36.7; O2SAT 93
--- NOTE | 2017-03-29 14:16 | Cardiology Consultation ---
Cardiology Consultation Date of Consultation: Mar 29, 2017. Attending Physician: Dr. Plunkett Pt evaluation today including: conversation w/ patient, conversation w/ family , physical exam, chart review, lab review, review of studies, conversation w/ attending History of Present Illness This is a PGY1 Resident note on the cardiology service. Please see attending's note for official consult discussion & recommendations 76yo female presents to ED on [id number] for "head pains" and s/p MRI earlier that morning after being referred by dermatology given her hx of melanoma. MRI noted possible subacute to chronic infarcts along with possible punctate acute infarct within the left cerebellar hemisphere, prompting pt's referral to the ED. While in the ED, pt noted mild chest "tightness" or "pressure", "not a pain but a spasm". TnI was minimally-elevated. Cardiology was consulted. On discussion this morning with pt, she's had the feeling of right chest "pressure" lasting 1-5 minutes at a time, occurring seemingly at random ( including rest, with exertion, or even waking from sleep) perhaps 1-2 times a week since October 2016. Sx always seem to self-resolve, including when she gets up from sleep to walk around. Pt says she's quite active outside, including with heavy yard work, and does not note sx at those times. No known aggravating or alleviating factors. Denies concurrent SOB, dizziness (though has hx of vertigo), palpitations, back pain, radiation of sx from right chest, known recent bleeding, or other acute c/o. She denies any known PMH of cardiac disease or prior cardiac evaluations. Past Medical/Surgical History PMH: - Polymyalgia rheumatica (dx'ed Oct 2016) - Melanoma (three lesions excised from left forearm over 20 years ago, no known recurrance) - Hyperlipidemia - Hypothyroidism (dx'ed around 40yo) - Vertigo PSH: - Cholecystectomy 1995 - D&C - Tonsillectomy/Adenoidectomy age 6 - Bilateral cararact correction - Left leg 'bone growth' removal around age 20's Family History Mother at age 98 (CHF), hx lyme, mesenteric artery thrombosis Father at age 95 (lung ca), hx coronary stents (age 80's) Brother: Coronary stents (age 60's) Social History Smoking Status: Never Smoker History of Alcohol Use: No Smoking Status: Never Smoker EtOH perhaps once every six months Lives at home alone but family nearby 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 Review of Systems Constitutional: No fever, No chills, No sweats Respiratory: No cough, No shortness of breath Cardiac: + chest pain, + edema (in RUE ? related to prednisone) Abdomen: No nausea, No vomiting, No diarrhea Female : No dysuria, No hematuria Neurologic: + vertigo, + balance problems, No weakness, No numbness/tingling Allergies Coded Allergies: Adhesives (Verified Allergy, Unknown, RASH AND ITCHING, 03/28/17) Bacitracin (Verified Allergy, Unknown, RASH AND ITCHING, 03/28/17) Neomycin (Verified Allergy, Unknown, RASH AND ITCHING, 03/28/17) Polymyxin B (Verified Allergy, Unknown, RASH AND ITCHING, 03/28/17) Acetaminophen (Verified Adverse Reaction, Unknown, NAUSEA, 03/28/17) Hydrocodone (Verified Adverse Reaction, Unknown, NAUSEA, 03/28/17) Medications Current Inpatient Medications Medications (Trade) Dose Ordered Sig/Carlos Route Start Time Stop Time Status Last Admin Dose Admin Cholecalciferol (Vitamin D Tab) 5,000 inter.unit DAILY PO 03/29/17 09:00 04/28/17 08:59 03/29/17 08:23 5,000 INTER.UNIT Levothyroxine Sodium (Synthroid Tab) 100 mcg DAILYBB PO 03/29/17 06:00 04/28/17 06:59 03/29/17 06:28 100 MCG Prednisone (PredniSONE TAB) 17.5 mg DAILY PO 03/29/17 09:00 04/28/17 08:59 03/29/17 08:20 17.5 MG Miscellaneous Information (Pharmacist Discharge Med Rec Consult) 1 ea UD PRN N/A 03/28/17 17:15 04/27/17 17:14 Enoxaparin Sodium (Lovenox Inj) 40 mg HS SC 03/28/17 21:00 04/27/17 20:59 03/28/17 21:14 40 MG Acetaminophen (Tylenol Tab) 650 mg Q4H PRN PO 03/28/17 18:00 04/27/17 17:59 Al Hydrox/Mg Hydrox/Simethicone (Maalox Max Susp) 15 ml Q4H PRN PO 03/28/17 18:00 04/27/17 17:59 Magnesium Hydroxide (Milk Of Magnesia Susp) 30 ml Q12H PRN PO 03/28/17 18:00 04/27/17 17:59 Ondansetron HCl (Zofran Inj) 4 mg Q6H PRN IV 03/28/17 18:00 04/27/17 17:59 Morphine Sulfate (MoRPHine SULFATE INJ) 2 mg Q30M PRN IV 03/28/17 18:00 04/11/17 17:59 Polyethylene (Miralax Powder Packet) 17 gm DAILY PRN PO 03/28/17 18:00 04/27/17 17:59 Aspirin (Ecotrin Tab) 325 mg QAM PO 03/29/17 09:00 04/28/17 08:59 03/29/17 08:18 325 MG Atorvastatin Calcium (Lipitor Tab) 10 mg HS PO 03/28/17 21:00 04/27/17 20:59 03/28/17 21:13 10 MG Physical Exam Vital Signs Past 12 Hours Date Time Temp Pulse Resp B/P (MAP) Pulse Ox O2 Delivery O2 Flow Rate FiO2 03/29/17 12:00 Room Air 03/29/17 10:58 36.7 72 18 155/92 (113) 93 Room Air 03/29/17 09:00 Room Air 03/29/17 08:37 36.3 67 14 109/57 (74) 98 Room Air 03/29/17 08:10 Room Air 03/29/17 04:00 Room Air 03/29/17 03:41 36.6 65 17 146/81 (102) 96 Room Air Constitutional: General Apperance: heathly-appearing Level of Distress: NAD Ambulation: ambulating normally Lungs: Respiratory effort: no dyspnea, good air movement Auscultation: breath sounds normal, no wheezing, no rales/crackles, no rhonchi Cardiovascular: Heart Auscultation: RRR, normal S1, normal S2, no murmurs Peripheral Pulses: Bruits: none appreciated Carotid Pulse: normal on the left, normal on the right Radial Pulse: normal on the left, normal on the right Dorsalis Pedis Pulse: normal on the left, normal on the right Abdomen: Inspection & Palpation: soft, non-distended, no tenderness, guarding & rebound Neurologic: Gait & Station: normal gait Cranial Nerves: grossly intact (CNII-XII intact (IX not tested)) Strength 5/5 throughout all extremities. Data Laboratory Results: Last 24 Hours Test 03/28/17 15:34 03/28/17 15:52 03/28/17 19:47 03/29/17 02:09 Bedside Prothrombin Time INR 1.0 Bedside Glucose 168 mg/dl White Blood Count 10.77 K/uL 9.09 K/uL Red Blood Count 4.87 M/uL 4.18 M/uL Hemoglobin 14.0 g/dL 12.4 g/dL Hematocrit 45.1 % 38.0 % Mean Corpuscular Volume 92.6 fL 90.9 fL Mean Corpuscular Hemoglobin 28.7 pg 29.7 pg Mean Corpuscular Hemoglobin Concent 31.0 g/dl 32.6 g/dl Platelet Count 222 K/uL 194 K/uL Mean Platelet Volume 10.2 fL 10.0 fL Neutrophils (%) (Auto) 87.7 % 60.1 % Lymphocytes (%) (Auto) 8.4 % 27.2 % Monocytes (%) (Auto) 3.2 % 10.9 % Eosinophils (%) (Auto) 0.1 % 1.2 % Basophils (%) (Auto) 0.3 % 0.3 % Neutrophils # (Auto) 9.45 K/uL 5.46 K/uL Lymphocytes # (Auto) 0.90 K/uL 2.47 K/uL Monocytes # (Auto) 0.35 K/uL 0.99 K/uL Eosinophils # (Auto) 0.01 K/uL 0.11 K/uL Basophils # (Auto) 0.03 K/uL 0.03 K/uL RDW Standard Deviation 47.4 fL 46.1 fL RDW Coefficient of Variation 13.9 % 14.0 % Immature Granulocyte % (Auto) 0.3 % 0.3 % Immature Granulocyte # (Auto) 0.03 K/uL 0.03 K/uL Prothrombin Time 10.3 SECONDS Prothromb Time International Ratio 1.0 Activated Partial Thromboplast Time 24.0 SECONDS Partial Thromboplastin Ratio 0.9 Sodium Level 140 mmol/L 142 mmol/L Potassium Level 3.6 mmol/L 3.5 mmol/L Chloride Level 106 mmol/L 110 mmol/L Carbon Dioxide Level 28 mmol/L 28 mmol/L Anion Gap 6.0 mmol/L 4.0 mmol/L Blood Urea Nitrogen 17 mg/dl 14 mg/dl Creatinine 0.96 mg/dl 0.71 mg/dl Est Creatinine Clear Calc Drug Dose 49.6 ml/min 67.0 ml/min Estimated GFR () 66.6 95.9 Estimated GFR (Non- 57.4 82.7 BUN/Creatinine Ratio 17.4 20.3 Random Glucose 173 mg/dl 94 mg/dl Estimated Average Glucose 131 mg/dl Hemoglobin A1c 6.2 % Calcium Level 8.7 mg/dl 8.0 mg/dl Total Creatine Kinase 92 U/L Creatine Kinase MB 2.4 ng/ml Creatine Kinase MB Ratio 2.6 Troponin I 0.046 ng/ml 0.046 ng/ml 0.054 ng/ml Magnesium Level 2.4 mg/dl Triglycerides Level 108 mg/dl Cholesterol Level 182 mg/dl HDL Cholesterol 68 mg/dl LDL Cholesterol, Calculated 92 mg/dl VLDL Cholesterol, Calculated 22 mg/dl Cholesterol/HDL Ratio 2.7 Test 03/29/17 11:54 Troponin I 0.033 ng/ml 06Sep MRI brain c/s con: Multiple scattered areas of signal abnormality within the brain as described above with the majority favoring subacute to chronic infarcts. Possible punctate acute infarct within the left cerebellar hemisphere measuring 5 mm. The right cerebellar and left frontal areas of signal abnormality demonstrate faint linear enhancement which can be seen in the setting of subacute infarcts. No areas of masslike enhancement to suggest metastatic disease. 06Sep CXR portable one view: 1. Mild diffuse interstitial thickening. This may be chronic. 2. Hazy appearance to the left lung base which may represent a small left pleural effusion or consolidation. 06Sep Carotid u/s: No evidence of a hemodynamically significant stenosis. 07Sep Cardiac echo: 1. Normal left ventricular size and systolic function. EF 60-65%. No regional wall motion abnormalities. Mild concentric left ventricular hypertrophy. Type 2 diastolic dysfunction. 2. No visualized ASD or PFO. No right to left atrial shunt noted following agitated saline injection. 3. Mild aortic regurgitation. 4. There is mild mitral regurgitation. 5. No prior study available for comparison. EKG: ED 06Sep: Sinus rhythm with PACs, 92 bpm, T wave inversion III Assessment & Plan 76yo female admitted for concern for CVA but also hx right chest pressure, minimally-elevated TnI on evaluation. Hx HLD and FH of coronary stents. Pt denies any exertional CP, SOB, radiation of sx, palpitations, or other acute chest concerns. No reports of sx while an inpt thus far. EKG was not consistent with STEMI, though had PACs and a T wave inversion. Max TnI 0.054. Cardiac echo showed generally normal function and EF. Thoughts: - Pt's elevation of TnI may be related to CVA events. Does not appear to meet criteria for NSTEMI and pain is atypical as a cardiac source. Recommend stop trending TnI. - Pt may benefit from outpt event monitoring for a month in case of undiagnosed afib. - Home on aspirin. - Recommend increase Lipitor dosing to 40 mg daily (high intensity therapy). Montior as discussed previously given hx of muscle pains. - Continue to monitor blood pressures as outpt and treat as appropriate. - Though not applicable presently in her case, would try to avoid provocative cardiac testing for six weeks s/p suspected CVA (unless emergent conditions exist). Discussed all the above on attending rounds this afternoon. Please see his consult for further discussion and official recommendations. BETTYE, PGY1 Family Medicine, Cardiology Service CARDIOLOGY ATTENDING ADDENDUM: SEE MY NOTE. Resident Tracking Resident Involvement: Resident Care Provided Care Provided: Adult Hospital Medicine (cardiology consult)
--- NOTE | 2017-03-29 15:39 | CARDIOLOGY CONSULTATION ---
DATE OF CONSULTATION: 03/29/2017 TIME: 14:37 p.m. CONSULTING PHYSICIAN: Dr. Pride. REASON FOR CONSULTATION: Elevated troponin and chest pain. HISTORY OF PRESENT ILLNESS: Ms. Grier is a very pleasant 76-year-old female with a history significant for polymyalgia rheumatica, dyslipidemia, hypothyroidism, and melanoma. She presented to [facility] on 03/28/2017 after having an abnormal MRI of the brain as an outpatient. She had been experiencing a pressure feeling in her head in her frontal sinus area and she believed it was related to her sinuses. She saw a dermatology, who recommended that she have an MRI of her brain given the fact that she has a history of melanoma and has been on steroids according to records. She underwent an MRI as an outpatient on 03/28/2017, which was read by radiology as multiple scattered areas of signal abnormality within the brain, favoring subacute to chronic infarcts. Possible punctate acute infarct within the left cerebral hemisphere, measuring 5 mm. The right cerebellar and left frontal areas demonstrate faintly near enhancement, which can be seen in the setting of subacute infarcts. There was no mass-like enhancement to suggest metastatic disease. A repeat MRI was recommended to ensure expected evolution of a subacute to chronic infarcts and resolution of the enhancement. She has not experienced any focal stroke-like symptoms. She was seen by Dr. Hsu of neurology, who acknowledged that the findings are concerning for embolic stroke, but he was unable to exclude the possibility of temporal arteritis and therefore, he recommended MRA of the head and neck to exclude vasculitis. In regards to her chest pain, it is a right-sided chest discomfort, described as a muscular spasm or pressure feeling. It can last anywhere from 1-5 minutes before spontaneously resolving. It can occur any time and is not associated with exertion. She describes episodes where they occurred while sleeping. She would wake up and ambulate and symptoms would resolve with exercise. She has 1-2 episodes per week and they have been occurring intermittently since October. There is no radiation of the pain and no associated shortness of breath. Yesterday, she had an episode, which was mild right-sided chest pain that lasted approximately 1 minute. She is very active outside, doing yard work and has no exertional symptoms while working outside with more strenuous activities. She denies melena, hematochezia, hematuria, or other bleeding. She did notice some swelling in her right upper extremity and right lower extremity while on prednisone. REVIEW OF SYSTEMS: As above. She also denies palpitations, syncope, or near syncope. She denies shortness of breath. Review of systems is otherwise negative/unremarkable. PAST MEDICAL HISTORY: 1. Polymyalgia rheumatica diagnosed in October. 2. Dyslipidemia. 3. Hypothyroidism. 4. Melanoma, status post excision of 3 lesions from the left forearm. 5. Vertigo. 6. Status post cholecystectomy in 1995. 7. Tonsillectomy. 8. Bilateral cataract surgery. 9. Removal of a left leg growth in the past. HOME MEDICATIONS: Include Lipitor 5 mg at bedtime, Synthroid 100 mcg daily, prednisone 17.5 mg daily, and vitamin D3. INPATIENT MEDICATIONS: Include aspirin 325 mg daily, levothyroxine 100 mcg daily, Lovenox 40 mg subQ at bedtime, and atorvastatin 10 mg at bedtime. ALLERGIES: INCLUDE ADHESIVE, BACITRACIN, NEOMYCIN, AND POLYMYXIN B. HYDROCODONE ALSO CAUSES NAUSEA. SOCIAL HISTORY: Denies tobacco. Very rare alcohol. No drugs. She is . She lives home alone. Her lives in a group home with dementia. She has 2 daughters and 1 son. Her children are present at the bedside as her [id number], Dominik. She is retired from [email or web address]. FAMILY HISTORY: Her mother just shy of her 99th birthday with CHF. Her father at age 95 of lung cancer. He had CAD diagnosed in his 70s-80s. Her brother had CAD diagnosed in his 60s. PHYSICAL EXAMINATION: VITAL SIGNS: Temperature 36.7 degrees, heart rate 72 beats per minute, respiratory rate 18, blood pressure 155/92 mmHg, and oxygen saturation 93% on room air. Weight 71 kg. GENERAL: No acute distress. She is alert and oriented. HEENT: Anicteric sclerae. NECK: No appreciable JVD. No bruits. Normal carotid upstrokes bilaterally. CARDIAC EXAMINATION: PMI was nonpalpable. There was no ventricular heave. Regular, normal S1 and S2. A 1/6 systolic murmur best heard at the left lower sternal border. No rubs or gallops. LUNGS: Clear to auscultation bilaterally without wheezes, rales or rhonchi. ABDOMEN: Soft, nontender, and nondistended. Normoactive bowel sounds. No bruits noted. EXTREMITIES: No cyanosis or pitting edema. 2+ radial pulses bilaterally. 2+ dorsalis pedis pulses bilaterally. No palpable cords. PSYCHIATRIC: Affect appears appropriate. Telemetry personally reviewed. No arrhythmias. Intermittent ectopy was noted. ECG on 03/28/2017 reviewed. Sinus rhythm with PACs at 92 BPM. Possible inferior infarct. Cannot rule out anterior infarct. Echocardiogram performed on 03/29/2017 reviewed. Normal LV systolic function and wall motion. EF 60%-65%. Mild LVH. Type 2 diastolic dysfunction. No [id number] atrial shunt noted following agitated saline injection. Mild AI. Mild MR. Brain MRI report reviewed as noted above. Carotid artery duplex report reviewed. Mild atherosclerotic plaque reported. No significant stenosis reported. LABORATORY DATA: White blood cell count 9.09, hemoglobin 12.4, and platelets 194. Sodium 142, potassium 3.5, BUN 14, and creatinine 0.71. Peak troponin 0.054. ASSESSMENT AND PLAN: 1. Chest pain: Chest pain is atypical. It occurs at rest, is right-sided, and can resolve with exercise. No ischemic evaluation recommended at this time for atypical chest pain with suggestion of recent stroke on MRI. 2. Elevated troponins: Her troponins are minimally elevated and are not diagnostic of myocardial infarction. She does not appear to be experiencing any angina or heart failure symptoms. Echocardiogram with normal LV systolic function. Slight elevation could be secondary to her neurologic events as described. No further ischemic evaluation recommended at this time. 3. Stroke: MRI concerning for embolic strokes. Aspirin has been started by primary service. Agree with statin therapy. Recommend high intensity statin therapy, especially given mild atherosclerotic disease noted within the carotid arteries. Neurology would also like to rule out vasculitis. MRA is pending as per neurology. Recommend an outpatient event monitor to evaluate for atrial fibrillation or atrial flutter, which could contribute to embolic strokes. Event monitor will be arranged in the outpatient setting. 4. Aortic regurgitation: She has mild aortic regurgitation. This would not account for symptoms. This can be followed over time with a repeat echo in 3-5 years or sooner for signs or symptoms more of worsening valvular heart disease. 5. Hypertension: Blood pressure is mildly elevated here; however, we will defer any treatment to neurology and primary service given recent ischemic events suggested by MRI. 6. Dyslipidemia: Recommend high intensity statin therapy. Recommend atorvastatin 40-80 mg daily given mild atherosclerotic plaque within the carotid arteries and brain MRI concerning for stroke. 7. Disposition: The patient's care has been discussed with Dr. Roman of the primary hospitalist service. An event monitor will be arranged in the outpatient setting. Please call for any further questions or concerns. Cardiology will sign off at this time. Thank you for allowing me to participate in care of Mrs. Grier. Sincerely, ASTER
[2017-03-29 16:07] VITALS: BP 127/82; PULSE 83; TEMP 36.7; O2SAT 96
--- NOTE | 2017-03-29 16:21 | Medical Student: [facility] ---
Med Student Progress Note Date of Service Mar 29, 2017. Subjective Pt evaluation today including: conversation w/ patient, conversation w/ family , physical exam, chart review, lab review, review of studies, review of inpatient medication list Pain: none PO Intake: normal Voiding: no voiding problems This is 76 year-old female with hx of polymyalgia rheumatica, hypothyroidism, and hyperlipidemia presented to the ED yesterday after receiving a call from her schedule manager about abnormal brain MRI, which shows multiple subacute infarcts and one suspected acute infarct. She had pressure LAZAR that comes and goes, and she also notices right chest discomfort that randomly occurs and lasts for 1-5min. She attributes that to her PMR. She also got dizzy spell which she associated with her vertigo. Today, she states that she is feeling fine. She got that brief right chest discomfort this morning, and said it is like her muscles spasm. She denies LAZAR, dizziness, fever chills, chest pain, palpitation, and SOB. Normal eating and bowels. Carotid U/S shows no stenosis. Echo showed no motion abnormalities, mild aortic and mitral regurgitation with some left ventricle hypertrophy. MRA head and neck are not done yet. Review of Systems Constitutional: No fever, No chills Eyes: No worsening of vision ENT: No hearing loss, No trouble swallowing Respiratory: No cough, No sputum, No shortness of breath, No dyspnea at rest Cardiac: + problem reported (right chest spasm), No chest pain Abdomen: No pain, No nausea, No vomiting, No diarrhea Musculoskeletal: No joint pain Female : No dysuria Objective Vital Signs Date Time Temp Pulse Resp B/P (MAP) Pulse Ox O2 Delivery O2 Flow Rate FiO2 03/29/17 12:00 Room Air 03/29/17 10:58 36.7 72 18 155/92 (113) 93 Room Air 03/29/17 09:00 Room Air 03/29/17 08:37 36.3 67 14 109/57 (74) 98 Room Air 03/29/17 08:10 Room Air 03/29/17 04:00 Room Air 03/29/17 03:41 36.6 65 17 146/81 (102) 96 Room Air 03/28/17 23:59 Room Air 03/28/17 23:06 36.4 65 20 146/75 (98) 98 Room Air 03/28/17 20:00 Room Air 03/28/17 19:30 36.5 76 18 154/101 (118) 97 Room Air 03/28/17 18:34 82 16 145/72 98 Room Air 03/28/17 16:34 99 16 163/99 98 Room Air 03/28/17 16:18 36.7 89 18 137/85 96 Room Air 03/28/17 15:59 98 Room Air 03/28/17 15:55 96 03/28/17 15:15 36.7 97 18 97 Room Air Physical Exam General Appearance: WD/WN, no apparent distress Eyes: bilateral eyes normal inspection ENT: normal ENT inspection, hearing grossly normal Neck: supple Respiratory/Chest: lungs clear, normal breath sounds, no respiratory distress, no accessory muscle use Cardiovascular: regular rate, rhythm, no edema, no murmur Abdomen: normal bowel sounds Extremities: normal range of motion, normal inspection, no pedal edema Neurologic/Psychiatric: hospital monitor II-XII nml as tested, no motor/sensory deficits, alert, normal mood/affect, oriented x 3 Skin: normal color Laboratory Results Last 24 Hours Test 03/28/17 15:34 03/28/17 15:52 03/28/17 19:47 03/29/17 02:09 Bedside Prothrombin Time INR 1.0 Bedside Glucose 168 mg/dl White Blood Count 10.77 K/uL 9.09 K/uL Red Blood Count 4.87 M/uL 4.18 M/uL Hemoglobin 14.0 g/dL 12.4 g/dL Hematocrit 45.1 % 38.0 % Mean Corpuscular Volume 92.6 fL 90.9 fL Mean Corpuscular Hemoglobin 28.7 pg 29.7 pg Mean Corpuscular Hemoglobin Concent 31.0 g/dl 32.6 g/dl Platelet Count 222 K/uL 194 K/uL Mean Platelet Volume 10.2 fL 10.0 fL Neutrophils (%) (Auto) 87.7 % 60.1 % Lymphocytes (%) (Auto) 8.4 % 27.2 % Monocytes (%) (Auto) 3.2 % 10.9 % Eosinophils (%) (Auto) 0.1 % 1.2 % Basophils (%) (Auto) 0.3 % 0.3 % Neutrophils # (Auto) 9.45 K/uL 5.46 K/uL Lymphocytes # (Auto) 0.90 K/uL 2.47 K/uL Monocytes # (Auto) 0.35 K/uL 0.99 K/uL Eosinophils # (Auto) 0.01 K/uL 0.11 K/uL Basophils # (Auto) 0.03 K/uL 0.03 K/uL RDW Standard Deviation 47.4 fL 46.1 fL RDW Coefficient of Variation 13.9 % 14.0 % Immature Granulocyte % (Auto) 0.3 % 0.3 % Immature Granulocyte # (Auto) 0.03 K/uL 0.03 K/uL Prothrombin Time 10.3 SECONDS Prothromb Time International Ratio 1.0 Activated Partial Thromboplast Time 24.0 SECONDS Partial Thromboplastin Ratio 0.9 Sodium Level 140 mmol/L 142 mmol/L Potassium Level 3.6 mmol/L 3.5 mmol/L Chloride Level 106 mmol/L 110 mmol/L Carbon Dioxide Level 28 mmol/L 28 mmol/L Anion Gap 6.0 mmol/L 4.0 mmol/L Blood Urea Nitrogen 17 mg/dl 14 mg/dl Creatinine 0.96 mg/dl 0.71 mg/dl Est Creatinine Clear Calc Drug Dose 49.6 ml/min 67.0 ml/min Estimated GFR () 66.6 95.9 Estimated GFR (Non- 57.4 82.7 BUN/Creatinine Ratio 17.4 20.3 Random Glucose 173 mg/dl 94 mg/dl Estimated Average Glucose 131 mg/dl Hemoglobin A1c 6.2 % Calcium Level 8.7 mg/dl 8.0 mg/dl Total Creatine Kinase 92 U/L Creatine Kinase MB 2.4 ng/ml Creatine Kinase MB Ratio 2.6 Troponin I 0.046 ng/ml 0.046 ng/ml 0.054 ng/ml Magnesium Level 2.4 mg/dl Triglycerides Level 108 mg/dl Cholesterol Level 182 mg/dl HDL Cholesterol 68 mg/dl LDL Cholesterol, Calculated 92 mg/dl VLDL Cholesterol, Calculated 22 mg/dl Cholesterol/HDL Ratio 2.7 Test 03/29/17 11:54 Troponin I 0.033 ng/ml Medications Current Inpatient Medications Medications (Trade) Dose Ordered Sig/Carlos Route Start Time Stop Time Status Last Admin Dose Admin Cholecalciferol (Vitamin D Tab) 5,000 inter.unit DAILY PO 03/29/17 09:00 04/28/17 08:59 03/29/17 08:23 5,000 INTER.UNIT Levothyroxine Sodium (Synthroid Tab) 100 mcg DAILYBB PO 03/29/17 06:00 04/28/17 06:59 03/29/17 06:28 100 MCG Prednisone (PredniSONE TAB) 17.5 mg DAILY PO 03/29/17 09:00 04/28/17 08:59 03/29/17 08:20 17.5 MG Miscellaneous Information (Pharmacist Discharge Med Rec Consult) 1 ea UD PRN N/A 03/28/17 17:15 04/27/17 17:14 Enoxaparin Sodium (Lovenox Inj) 40 mg HS SC 03/28/17 21:00 04/27/17 20:59 03/28/17 21:14 40 MG Acetaminophen (Tylenol Tab) 650 mg Q4H PRN PO 03/28/17 18:00 04/27/17 17:59 Al Hydrox/Mg Hydrox/Simethicone (Maalox Max Susp) 15 ml Q4H PRN PO 03/28/17 18:00 04/27/17 17:59 Magnesium Hydroxide (Milk Of Magnesia Susp) 30 ml Q12H PRN PO 03/28/17 18:00 04/27/17 17:59 Ondansetron HCl (Zofran Inj) 4 mg Q6H PRN IV 03/28/17 18:00 04/27/17 17:59 Morphine Sulfate (MoRPHine SULFATE INJ) 2 mg Q30M PRN IV 03/28/17 18:00 04/11/17 17:59 Polyethylene (Miralax Powder Packet) 17 gm DAILY PRN PO 03/28/17 18:00 04/27/17 17:59 Aspirin (Ecotrin Tab) 325 mg QAM PO 03/29/17 09:00 04/28/17 08:59 03/29/17 08:18 325 MG Atorvastatin Calcium (Lipitor Tab) 10 mg HS PO 03/28/17 21:00 04/27/17 20:59 03/28/17 21:13 10 MG Assessment and Plan Assessment and Plan: This is 76 year-old female with hx of polymyalgia rheumatica, hypothyroidism, and hyperlipidemia presented to the ED yesterday with an brain MRI showing multiple strokes. Stroke Brain MRI shows multiple subacute to chronic infarcts and acute infarct in the cerebellum. Cardioembolic is probably the source. Carotid U/S is negative for stenosis. Echo shows mild aortic and mitral regurgitation. Patient has hx of hyperlipidemia controlled with lipitor. - Neurologist consulted - Scheduled for head and neck MRA - Cardiology consulted - trending down troponin, probably not a OH; recommend Lipitor 40-80mg, continue aspirin. Continue monitor heart rhythm for afib or aflutter. May need a Holter monitor as outpatient. No stress test at least within 6 weeks of stroke diagnosis. Continue monitor BP. Abnormal troponin/questionable OH Patient has right chest pressure that comes and goes unrelated to exertion. She attributes that to PMR. Troponin is abnormal at 0.054 in the morning, but goes down to 0.033 in the afternoon. This elevation is probably due to cva and not OH. Polymyalgia Rheumatica - Continue prednisone at home dose Hypothyroidism - Continue levothyroxine. Continued [facility] stay due to: other (monitor)
--- NOTE | 2017-03-29 18:44 | Progress Note ---
Subjective Date of Service: Mar 29, 2017. Subjective Patient has no neurological deficits despite having multiple likely embolic strokes. She has no recollection of ever being told should atrial fibrillation nor she had any palpitations. She says she just has not felt like herself has been weak for last few days. The MRI performed a finder strokes was done to look for metastatic melanoma and she has a history of melanoma. None of this was described with the stroke or felt likely embolic although no embolic source was discovered at this point. I discussed her future plans if we see no additional arrhythmia on monitor and this was reconfirmed with cardiology. I personally reviewed her MRI with her the patient and her family in the bedside Problem List Medical Problems: (1) CVA (cerebral vascular accident) Status: Acute (2) NSTEMI (non-ST elevated myocardial infarction) Status: Acute Review of Systems ROS: well nourished well developed No double vision blurry vision No problems with speech or swallowing No palpitations, chest pain or pressure No Wheezing or breathing issues No abdominal pain nausea vomiting diarrhea changes in appetite or weight No burning urine urine frequency or changes in color No focal joint pain or muscle pain No skin rashes or oral lesions No unusual bruising or bleeding No focused back pain or numbness or loss of strength No changes in memory or confusion Objective Vital Signs Date Time Temp Pulse Resp B/P (MAP) Pulse Ox O2 Delivery O2 Flow Rate FiO2 03/29/17 04:00 Room Air 03/29/17 03:41 36.6 65 17 146/81 (102) 96 Room Air 03/28/17 23:59 Room Air 03/28/17 23:06 36.4 65 20 146/75 (98) 98 Room Air 03/28/17 20:00 Room Air 03/28/17 19:30 36.5 76 18 154/101 (118) 97 Room Air 03/28/17 18:34 82 16 145/72 98 Room Air 03/28/17 16:34 99 16 163/99 98 Room Air 03/28/17 16:18 36.7 89 18 137/85 96 Room Air 03/28/17 15:59 98 Room Air 03/28/17 15:55 96 03/28/17 15:15 36.7 97 18 97 Room Air Physical Exam General Appearance: WD/WN, no apparent distress Eyes: PERRL, EOMI ENT: hearing grossly normal, pharynx normal Respiratory/Chest: chest non-tender, lungs clear, normal breath sounds Cardiovascular: regular rate, rhythm, no murmur Abdomen: normal bowel sounds, non tender, soft Extremities: no pedal edema, no calf tenderness Neurologic/Psychiatric: alert, oriented x 3 Skin: normal color, warm/dry, no rash Laboratory Results Last 24 Hours Test 03/28/17 15:34 03/28/17 15:52 03/28/17 19:47 03/29/17 02:09 Bedside Prothrombin Time INR 1.0 Bedside Glucose 168 mg/dl White Blood Count 10.77 K/uL 9.09 K/uL Red Blood Count 4.87 M/uL 4.18 M/uL Hemoglobin 14.0 g/dL 12.4 g/dL Hematocrit 45.1 % 38.0 % Mean Corpuscular Volume 92.6 fL 90.9 fL Mean Corpuscular Hemoglobin 28.7 pg 29.7 pg Mean Corpuscular Hemoglobin Concent 31.0 g/dl 32.6 g/dl Platelet Count 222 K/uL 194 K/uL Mean Platelet Volume 10.2 fL 10.0 fL Neutrophils (%) (Auto) 87.7 % 60.1 % Lymphocytes (%) (Auto) 8.4 % 27.2 % Monocytes (%) (Auto) 3.2 % 10.9 % Eosinophils (%) (Auto) 0.1 % 1.2 % Basophils (%) (Auto) 0.3 % 0.3 % Neutrophils # (Auto) 9.45 K/uL 5.46 K/uL Lymphocytes # (Auto) 0.90 K/uL 2.47 K/uL Monocytes # (Auto) 0.35 K/uL 0.99 K/uL Eosinophils # (Auto) 0.01 K/uL 0.11 K/uL Basophils # (Auto) 0.03 K/uL 0.03 K/uL RDW Standard Deviation 47.4 fL 46.1 fL RDW Coefficient of Variation 13.9 % 14.0 % Immature Granulocyte % (Auto) 0.3 % 0.3 % Immature Granulocyte # (Auto) 0.03 K/uL 0.03 K/uL Prothrombin Time 10.3 SECONDS Prothromb Time International Ratio 1.0 Activated Partial Thromboplast Time 24.0 SECONDS Partial Thromboplastin Ratio 0.9 Sodium Level 140 mmol/L 142 mmol/L Potassium Level 3.6 mmol/L 3.5 mmol/L Chloride Level 106 mmol/L 110 mmol/L Carbon Dioxide Level 28 mmol/L 28 mmol/L Anion Gap 6.0 mmol/L 4.0 mmol/L Blood Urea Nitrogen 17 mg/dl 14 mg/dl Creatinine 0.96 mg/dl 0.71 mg/dl Est Creatinine Clear Calc Drug Dose 49.6 ml/min 67.0 ml/min Estimated GFR () 66.6 95.9 Estimated GFR (Non- 57.4 82.7 BUN/Creatinine Ratio 17.4 20.3 Random Glucose 173 mg/dl 94 mg/dl Estimated Average Glucose 131 mg/dl Hemoglobin A1c 6.2 % Calcium Level 8.7 mg/dl 8.0 mg/dl Total Creatine Kinase 92 U/L Creatine Kinase MB 2.4 ng/ml Creatine Kinase MB Ratio 2.6 Troponin I 0.046 ng/ml 0.046 ng/ml 0.054 ng/ml Magnesium Level 2.4 mg/dl Triglycerides Level 108 mg/dl Cholesterol Level 182 mg/dl HDL Cholesterol 68 mg/dl LDL Cholesterol, Calculated 92 mg/dl VLDL Cholesterol, Calculated 22 mg/dl Cholesterol/HDL Ratio 2.7 Assessment and Plan 76 y/o F admitted with subacute cerebral infarctions seen on MRI, associated with headache, elevated troponin with mild CP but not ACS and a Hx polymyalgia rheumatica, and melanoma. CVA - multiple affected areas without significant impairments - considering embolic CVA. ASA, high dose statin, pending MRA,echo, neuro consult, allowing permissive hypertension Elevated trop - echo to eval EF and for RWMA, - asa and Statin may consider elevated troponin to be secondary to her stroke we will trend Polymyalgia home dose of prednisone, but watch for adrenal suppression and have low threshold for stress coverage hypothyroidism, clinically stable on Synthroid Full code - Lovenox prophylaxis
[2017-03-29 19:17] VITALS: BP 125/70; PULSE 62; TEMP 36.8; O2SAT 94
[2017-03-29] MEDS: ENOXAPARIN 40 MG/0.4 ML SYR SC SCH (20:59)
[2017-03-29] MEDS ORDERED: ATORVASTATIN 40 MG TAB PO SCH (21:00)
[2017-03-29] MEDS ORDERED: GADAVIST IV PRN (21:15)
--- NOTE | 2017-03-29 21:20 | DIAGNOSTIC IMAGING REPORT ---
Brain MRA HISTORY: Stroke - Attention to [place] TECHNIQUE: 3-D [id number] MRA of the brain was performed without contrast. COMPARISON STUDY: None. FINDINGS: Diminished flow within the proximal to mid basilar artery. The distal basilar artery is widely patent. Hypoplastic left P1 segment with a dominant left posterior communicating artery resulting in perfusion of the left INSTALLATION TECHNICIAN. This is considered to be a normal variant. No significant stenosis within the bilateral firmware manager. The mid to distal firmware manager are suboptimally assessed due to the motion artifact. No significant stenosis within the bilateral intracranial internal carotid arteries. No aneurysms identified. The bilateral ACAs and MCAs are patent. No evidence for arterial occlusion. IMPRESSION: 1. Diminished flow within the proximal to mid basilar artery. This favors motion artifact. However, diffuse atherosclerotic disease could also have a similar appearance. 2. Otherwise, no significant stenosis, occlusion, or aneurysm within the [place]. Electronically signed by: Nasir Mullen M.D. 03/29/2017 9:18 PM Dictated Date/Time: 03/29/2017 9:12 PM
--- NOTE | 2017-03-29 21:26 | DIAGNOSTIC IMAGING REPORT ---
NECK MRA HISTORY: Stroke TECHNIQUE: [id number] and gadolinium-enhanced MRA of the neck was performed both before and after the intravenous administration of contrast. All measurements were calculated based on NASCET criteria. COMPARISON STUDY: Carotid Doppler 03/28/2017. FINDINGS: The aortic arch and proximal great vessels are widely patent. There is no significant stenosis, occlusion, or dissection identified within the bilateral common carotid, internal carotid, or left vertebral arteries. Focal moderate narrowing at the distal right vertebral artery at approximately the C2 level. IMPRESSION: 1. Focal moderate narrowing at the distal right vertebral artery at approximately the C2 level. 2. Otherwise, no significant stenosis, occlusion, or dissection identified within the carotid or left vertebral arteries. Electronically signed by: Nasir Mullen M.D. 03/29/2017 9:24 PM Dictated Date/Time: 03/29/2017 9:19 PM
[2017-03-30 00:04] VITALS: BP 117/62; PULSE 60; TEMP 36.5; O2SAT 98
[2017-03-30 03:09] VITALS: BP 106/50; PULSE 57; TEMP 36.7; O2SAT 95
[2017-03-30] MEDS: LEVOTHYROXINE 100 MCG TAB PO SCH (05:45)
[2017-03-30 06:39] LABS: BASO % 0.4 %; BASO ABS # 0.04 K/uL (0-0.2); COMPLETE YES; EOS % 2.2 %; IG% 0.4 %; LYMPH % 35.9 %; MEAN CELL VOLUME 91.7 fL (80-100); MEAN CORPUSCULAR HEMOGLOBIN 29.8 pg (25-34); MEAN CORPUSCULAR HGB CONC 32.5 g/dl (32-36); MEAN PLATELET VOLUME 10.5 fL (7.4-10.4); MONO % 11.9 %; NEUT % 49.2 %; PLATELET COUNT 202 K/uL (130-400); RED BLOOD COUNT 4.36 M/uL (4.2-5.4); WHITE BLOOD COUNT 9.46 K/uL (4.8-10.8)
[2017-03-30 07:07] LABS: BUN/CREATININE RATIO 27.3 (10-20); CALCIUM 8.3 mg/dl (8.5-10.1); CREATININE 0.82 mg/dl (0.60-1.20); POTASSIUM 3.6 mmol/L (3.5-5.1)
[2017-03-30 07:12] VITALS: BP 133/80; PULSE 62; TEMP 36.7; O2SAT 98
[2017-03-30] MEDS: ASPIRIN 325 MG ECTAB PO SCH (07:47)
[2017-03-30] MEDS: CHOLECALCIFEROL 1000 INTER.UNIT TAB PO SCH (07:48)
--- NOTE | 2017-03-30 08:30 | Neurology Progress Notes ---
Neurology Progress Note Date of Service Mar 30, 2017. Subjective Follow-up for stroke patient denies any symptoms or complaints at this time no headache currently no vision loss, weakness, or numbness no chest pain Objective Date Time Temp Pulse Resp B/P (MAP) Pulse Ox O2 Delivery O2 Flow Rate FiO2 03/30/17 07:12 36.7 62 18 133/80 (97) 98 Room Air 03/30/17 04:00 Room Air 03/30/17 03:09 36.7 57 20 106/50 (68) 95 Room Air 03/30/17 00:04 36.5 60 16 117/62 (80) 98 Room Air 03/29/17 23:59 Room Air 03/29/17 20:00 Room Air 03/29/17 19:17 36.8 62 18 125/70 (88) 94 Room Air 03/29/17 17:44 Room Air 03/29/17 16:07 36.7 83 14 127/82 (97) 96 03/29/17 12:00 Room Air 03/29/17 10:58 36.7 72 18 155/92 (113) 93 Room Air 03/29/17 09:00 Room Air 03/29/17 08:37 36.3 67 14 109/57 (74) 98 Room Air Last 24 Hours Test 03/29/17 11:54 03/30/17 05:40 Troponin I 0.033 ng/ml White Blood Count 9.46 K/uL Red Blood Count 4.36 M/uL Hemoglobin 13.0 g/dL Hematocrit 40.0 % Mean Corpuscular Volume 91.7 fL Mean Corpuscular Hemoglobin 29.8 pg Mean Corpuscular Hemoglobin Concent 32.5 g/dl Platelet Count 202 K/uL Mean Platelet Volume 10.5 fL Neutrophils (%) (Auto) 49.2 % Lymphocytes (%) (Auto) 35.9 % Monocytes (%) (Auto) 11.9 % Eosinophils (%) (Auto) 2.2 % Basophils (%) (Auto) 0.4 % Neutrophils # (Auto) 4.64 K/uL Lymphocytes # (Auto) 3.40 K/uL Monocytes # (Auto) 1.13 K/uL Eosinophils # (Auto) 0.21 K/uL Basophils # (Auto) 0.04 K/uL RDW Standard Deviation 47.0 fL RDW Coefficient of Variation 14.0 % Immature Granulocyte % (Auto) 0.4 % Immature Granulocyte # (Auto) 0.04 K/uL Erythrocyte Sedimentation Rate 6 mm/hr Sodium Level 141 mmol/L Potassium Level 3.6 mmol/L Chloride Level 108 mmol/L Carbon Dioxide Level 29 mmol/L Anion Gap 4.0 mmol/L Blood Urea Nitrogen 22 mg/dl Creatinine 0.82 mg/dl Est Creatinine Clear Calc Drug Dose 56.8 ml/min Estimated GFR () 80.6 Estimated GFR (Non- 69.5 BUN/Creatinine Ratio 27.3 Random Glucose 91 mg/dl Calcium Level 8.3 mg/dl Imaging: MRA head reveals multi-focal narrowing potentially c/w diffuse atherosclerotic disease, may not be able to exclude vasculitis per my review of images in context of patient's h/o PMR Exam: The patient is alert and fully oriented. Recent and remote memory intact. Attention and concentration normal. Patient exhibits a normal spontaneous, fluent, speech pattern. Fund of knowledge normal. Eye movements normal. There is normal facial symmetry and strength. No abnormal movements observed. Gait and station normal. Current Inpatient Medications Medications (Trade) Dose Ordered Sig/Carlos Route Start Time Stop Time Status Last Admin Dose Admin Cholecalciferol (Vitamin D Tab) 5,000 inter.unit DAILY PO 03/29/17 09:00 04/28/17 08:59 03/30/17 07:48 5,000 INTER.UNIT Levothyroxine Sodium (Synthroid Tab) 100 mcg DAILYBB PO 03/29/17 06:00 04/28/17 06:59 03/30/17 05:45 100 MCG Prednisone (PredniSONE TAB) 17.5 mg DAILY PO 03/29/17 09:00 04/28/17 08:59 03/30/17 07:47 17.5 MG Miscellaneous Information (Pharmacist Discharge Med Rec Consult) 1 ea UD PRN N/A 03/28/17 17:15 04/27/17 17:14 Enoxaparin Sodium (Lovenox Inj) 40 mg HS SC 03/28/17 21:00 04/27/17 20:59 03/29/17 20:59 40 MG Acetaminophen (Tylenol Tab) 650 mg Q4H PRN PO 03/28/17 18:00 04/27/17 17:59 Al Hydrox/Mg Hydrox/Simethicone (Maalox Max Susp) 15 ml Q4H PRN PO 03/28/17 18:00 04/27/17 17:59 Magnesium Hydroxide (Milk Of Magnesia Susp) 30 ml Q12H PRN PO 03/28/17 18:00 04/27/17 17:59 Ondansetron HCl (Zofran Inj) 4 mg Q6H PRN IV 03/28/17 18:00 04/27/17 17:59 Morphine Sulfate (MoRPHine SULFATE INJ) 2 mg Q30M PRN IV 03/28/17 18:00 04/11/17 17:59 Polyethylene (Miralax Powder Packet) 17 gm DAILY PRN PO 03/28/17 18:00 04/27/17 17:59 Aspirin (Ecotrin Tab) 325 mg QAM PO 03/29/17 09:00 04/28/17 08:59 03/30/17 07:47 325 MG Atorvastatin Calcium (Lipitor Tab) 40 mg HS PO 03/29/17 21:00 04/27/17 20:59 03/29/17 20:59 40 MG Gadobutrol (Gadavist) 7 mmol UD PRN IV 03/29/17 21:15 04/02/17 21:14 Impression Multifocal infarcts (intact neurological examination) in a patient with h/o PMR diagnosed this past spring, currently taking Prednisone. I am unable to exclude vasculitis/temporal arteritis in this patient. Cardioembolism possible, but not proven or supported at this time. Plan I would recommend a temporal artery biopsy to try and establish a diagnosis of temporal arteritis/vasculitis. I explained to the patient that a biopsy is not completely sensitive, however. If positive, she would need to have her Prednisone dose increased to 80 mg per day and have additional follow up with her casino porter, Dr. Dubose. Continue daily ASA as ordered. Discussed with vascular surgery service.
[2017-03-30] MEDS ORDERED: ASPEC325 PO (08:32)
[2017-03-30] MEDS ORDERED: LPT40 PO (08:32)
--- NOTE | 2017-03-30 08:34 | Discharge Instructions ---
Discharge Instructions Date of Service Mar 30, 2017. Admission Reason for Admission: Cva, Troponin I Above Reference Range Discharge Discharge Diagnosis / Problem: subacute stroke Discharge Goals Goal(s): Diagnostic testing, Therapeutic intervention Activity Recommendations Activity Limitations: resume your previous activity . Instructions / Follow-Up Instructions / Follow-Up Risk Factors for Stroke: You can reduce your chances of stroke by working with your medical provider to adopt a healthy lifestyle. Some specific ways to lower your chance of stroke are: * If you are a smoker, now is the time to stop smoking cigarettes * If you are diabetic, improve the control of your blood sugars * Avoid excessive amounts of alcohol * Control high blood pressure * Lose weight if you are overweight * Be sure to lead an active lifestyle * Eat a healthy diet low in salt, cholesterol and fat You should know about other risk factors for stroke that you are unable to control. These include: * Age 55 years or older * Male gender * Certain racial groups: , or / * Family History of Stroke, Mini stroke or Heart Attack * Sickle Cell Disease Follow Up: It is important for you to keep your follow up appointments with your medical provider. Current Hospital Diet Patient's current hospital diet: AHA Diet (Heart Healthy) Discharge Diet Recommended Diet: Regular Diet Pending Studies Studies pending at discharge: no Laboratory Results Hemoglobin A1c Test 03/28/17 15:52 Range/Units Estimated Average Glucose 131 mg/dl Hemoglobin A1c 6.2 H 4.5-5.6 % Lipid Panel Test 03/29/17 02:09 Range/Units Triglycerides Level 108 0-150 mg/dl Cholesterol Level 182 0-200 mg/dl HDL Cholesterol 68 mg/dl Cholesterol/HDL Ratio 2.7 LDL Cholesterol, Calculated 92 mg/dl Medical Emergencies . Who to Call and When: Medical Emergencies: Call 911 immediately if you experience any of the following warning signs and symptoms of Stroke: * Sudden numbness or weakness of the face, arm or leg, especially on one side of the body * Sudden confusion, trouble speaking or understanding * Sudden trouble seeing in one or both eyes * Sudden trouble walking, dizziness, loss of balance or coordination * Sudden severe headache with no cause Do not delay calling 911 if you experience any warning signs or symptoms of a stroke. Delay in seeking medical attention may affect what treatments can be given to you. . Non-Emergent Contact Non-Emergency issues call your: Primary Care Provider Call Non-Emergent contact if: temperature is above 101, your pain is unusual for you . . "Provider Documentation" section prepared by Rio Roman. . Stroke Core Measures Reason no t-PA for Stroke: Treatment not indicated Reason no antithrom by day 2: Treatment provided - N/A Reason no antithrom at D/C: Treatment provided - N/A Reason no statin at D/C: Treatment provided - N/A Reason no anticoag w/a fib: Treatment provided - N/A VTE Core Measure Inpt VTE Proph given/why not?: Enoxaparin (Lovenox)SQ
[2017-03-30 09:57] VITALS: BP 133/80; PULSE 62; TEMP 36.7; O2SAT 98
--- NOTE | 2017-03-30 09:58 | Surgery Consultation ---
Consultation Date of Service Mar 30, 2017. Chief Complaint multofocal infarcts, Possible temporal arteritis History of Present Illness The patient is a 76 year old female with hx of PMR since October 2016, admitted d/ t multifocal infarcts noted on brain MRI, seen in consultation today for possible temporal artery bx. 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 Dermatology ordered MRI to eval d/t hxof PMR, which demonstrated multifocal infarcts. No definite evidence of arteritis and ESR 6. Pt denies any temporal discomfort, dizziness, chest pain, SOB, fever, chills, ABD pain, N/V, rest pain, claudication, other complaints. Pt is nonsmoker. Pt began steroid therapy in 10/2016 which improved her PMR sx. Vitals Vital Signs Past 12 Hours Date Time Temp Pulse Resp B/P (MAP) Pulse Ox O2 Delivery O2 Flow Rate FiO2 03/30/17 08:20 Room Air 03/30/17 07:12 36.7 62 18 133/80 (97) 98 Room Air 03/30/17 04:00 Room Air 03/30/17 03:09 36.7 57 20 106/50 (68) 95 Room Air 03/30/17 00:04 36.5 60 16 117/62 (80) 98 Room Air 03/29/17 23:59 Room Air Allergies Coded Allergies: Adhesives (Verified Allergy, Unknown, RASH AND ITCHING, 03/28/17) Bacitracin (Verified Allergy, Unknown, RASH AND ITCHING, 03/28/17) Neomycin (Verified Allergy, Unknown, RASH AND ITCHING, 03/28/17) Polymyxin B (Verified Allergy, Unknown, RASH AND ITCHING, 03/28/17) Acetaminophen (Verified Adverse Reaction, Unknown, NAUSEA, 03/28/17) Hydrocodone (Verified Adverse Reaction, Unknown, NAUSEA, 03/28/17) Home Medications Scheduled Aspirin (Aspirin), 325 MG PO QAM Atorvastatin (Lipitor), 5 MG PO HS Atorvastatin (Atorvastatin Calcium), 40 MG PO HS Cholecalciferol (Vitamin D3), 5,000 INTER.UNIT PO DAILY Levothyroxine Sodium (Synthroid), 100 MCG PO QAM Prednisone (Prednisone), 17.5 MG PO DAILY Problem List Medical Problems: (1) Polymyalgia rheumatica (2) Troponin I above reference range Surgical / Medical History Hx Cardiac Surgery: No Hx Abdominal Surgery: Yes (CLEO) Hx Cancer Surgery: Yes (MELANOMA REMOVALS) Hx Thoracic Surgery: No Hx Orthopedic: Yes (LT KNEE SURGERY) Hx Urinary Tract Surgery: No Past Medical/Surgical History: Chronic Steroid Use, High Cholesterol, Thyroid Disease, Other (polymyalgia rheumatica) Family History + HTN Social History Smoking Status: Never Smoker Hx Tobacco Use In Past Year?: No Hx Alcohol Use - Type & Amnt: No Hx Substance Use -Type & Amnt: No Review of Systems Constitutional: No chills, No fever, No malaise Skin: No change in color Eyes: No visual changes ENMT: No sore throat Respiratory: No cough, No CORNELL, No short of breath Cardiovascular: No chest pain, No syncope, No edema, No intermittent claudication Gastrointestinal: No abdominal pain, No nausea, No vomiting Genitourinary - Female: No dysuria, No hematuria Neurologic: No dizziness, No weakness, No headache, No numbness Physical Exam Constitutional: General Apperance: heathly-appearing Level of Distress: NAD Ambulation: ambulating normally Psychiatric: Mental Status: active & alert, normal mood, normal affect Orientation: oriented except where noted, to time, to place, to person Memory: recent memory normal, remote memory normal Head: normocephalic, atraumatic Eyes: EOM: EOMI, pertinent finding (NONTENDER OVER BL TEMPORAL ARTERIES) ENMT: normal ENT inspection, hearing grossly normal Neck: supple, trachea midline Lungs: Respiratory effort: no dyspnea, good air movement Auscultation: breath sounds normal, no wheezing, no rales/crackles, no rhonchi Cardiovascular: Apical Impulse: not displaced Heart Auscultation: RRR, no murmurs, no rubs, no gallops Peripheral Pulses: Pulses: full and equal, in all extremities except if noted Bruits: none appreciated Superficial Temporal Artery: normal on the left, normal on the right Brachial Pulses: normal on the left, normal on the right Radial Pulse: normal on the left, normal on the right Femoral Pulse: normal on the left, normal on the right Posterior Tibialis Pulse: normal on the left, normal on the right Dorsalis Pedis Pulse: normal on the left, normal on the right Abdomen: Bowel Sounds: normal Inspection & Palpation: soft, non-distended, no tenderness, guarding & rebound Musculoskeletal: normal strength (5/5 throughout), normal tone Extremities: Upper Right: no cyanosis, no edema, no varicosities Upper Left: no cyanosis, no edema, no varicosities Lower Right: no cyanosis, no edema, no varicosities Lower Left: no cyanosis, no edema, no varicosities Neurologic: Cranial Nerves: grossly intact Sensation: grossly intact Assessment and Plan ASSESSMENT and PLAN: Multifocal brain infarcts Hx polymyalgia rheumatica Pt without sx consistent with TA, ESR 6, and on chronic steroid therapy for past 5 months. Pt discussed at length with Dr Peraza, does not recommend pt to undergo temporal artery bx as it is unlikely to yield any useful information at this time. Willing to reconsider as outpt if her sofa back upholsterer recommends. This was discussed with pt, she is agreeable. Hospitalist also aware. Please call if needed.
--- NOTE | 2017-03-30 10:23 | Pharmacy Progress Note ---
Pharmacist Stroke Counseling Date of Service Mar 30, 2017. Scope Pharmacy has been consulted to provide medication discharge counseling for this patient admitted with ischemic stroke/hemorrhagic stroke/ transient ischemic attack as per the Pharmacist Discharge Counseling for Stroke Patients Protocol. Medications on Discharge New Medications: Aspirin (Aspirin) 325 Mg Ectab 325 MG PO QAM, #365 DOSE Atorvastatin (Atorvastatin Calcium) 40 Mg Tab 40 MG PO HS, #90 TAB 3 Refills Continued Medications: Cholecalciferol (Vitamin D3) 1,000 Unit Tab 5000 INTER.UNIT PO DAILY for 90 Days, TAB 3 Refills Levothyroxine Sodium (Synthroid) 100 Mcg Tab 100 MCG PO QAM Prednisone (Prednisone) 5 Mg Tab 17.5 MG PO DAILY, TAB Discontinued Medications: Atorvastatin (Lipitor) 10 Mg Tab 5 MG PO HS Action The above medications, specifically ones for stroke treatment/prophylaxis, have been reviewed in detail with the patient and/or patient sales representative raw fibers(s) prior to discharge. This includes indication, common adverse reactions, drug interactions, and medication administration. Medication counseling has been employed using the teach-back method to ensure understanding. Outcome The patient and/or patient sales representative raw fibers(s) have demonstrated understanding of the medications. Please note, they are aware that the pharmacist will call them within 72 hours post-discharge to confirm that the appropriate medications are being taken and answer any further medication related questions the patient might have at that time. Contact information Individual to be contacted: Mohini Grier Relationship to patient (if applicable): n/a Phone number: Best time to call: 04/02/17 @ 0800 Additional comments: pt exhibited a strong understanding of her new medications. Thank you for allowing pharmacy to be involved in the care of this patient. Please call [phone] or [phone] with any additional questions
--- NOTE | 2017-03-30 18:58 | Discharge Summary ---
Discharge Summary Date of Service Mar 30, 2017. Discharge Summary Admission Date: Mar 28, 2017 at 17:55 Discharge Date: Mar 30, 2017 Discharge Disposition: Home Principal Diagnosis: CVA Consultations: Dr. Hsu did see in consultation had recommended possible temporal artery biopsy, vascular surgery evaluated and felt given lack of symptoms, lower sedimentation rate, and concurrent use of prednisone therapy the yield would be low recommended referral to rheumatology for consideration and will proceed in the outpatient arena if required Consideration for an embolic CVA from atrial fibrillation, monitor, cardiology will place a 30 day event monitor to be administered as an outpatient Medication Reconciliation New Medications: Aspirin (Aspirin) 325 Mg Ectab 325 MG PO QAM, #365 DOSE Atorvastatin (Atorvastatin Calcium) 40 Mg Tab 40 MG PO HS, #90 TAB 3 Refills Continued Medications: Cholecalciferol (Vitamin D3) 1,000 Unit Tab 5000 INTER.UNIT PO DAILY for 90 Days, TAB 3 Refills Levothyroxine Sodium (Synthroid) 100 Mcg Tab 100 MCG PO QAM Prednisone (Prednisone) 5 Mg Tab 17.5 MG PO DAILY, TAB Discontinued Medications: Atorvastatin (Lipitor) 10 Mg Tab 5 MG PO HS Discharge Exam Review of Systems: Constitutional: No fever, No chills Respiratory: No cough, No sputum, No shortness of breath Cardiovascular: No chest pain, No orthopnea, No edema Musculoskeletal: No joint pain, No swelling Physical Exam: General Appearance: WD/WN, + mild distress, + moderate distress Neck: supple, no JVD Respiratory/Chest: chest non-tender, lungs clear, normal breath sounds Cardiovascular: regular rate, rhythm, no murmur Abdomen / GI: normal bowel sounds, non tender, soft Hospital Course 76 y/o F admitted with subacute cerebral infarctions seen on MRI, associated with headache, elevated troponin with mild CP but not ACS and a Hx polymyalgia rheumatica, and melanoma. CVA - multiple affected areas without significant impairments - considering embolic CVA. ASA, high dose statin, no significant changes on MRA,echo Elevated trop - echo to eval EF and for RWMA, - asa and Statin may consider elevated troponin to be secondary to her stroke no significant trend or acute coronary syndrome seen on EKG Polymyalgia home dose of prednisone, will close follow-up with rheumatology hypothyroidism, clinically stable on Synthroid Total Time Spent: Greater than 30 minutes This includes examination of the patient, discharge planning, medication reconciliation, and communication with other providers. Discharge Instructions Please refer to the electronic Patient Visit Report (Discharge Instructions) for additional information.
--- NOTE | 2017-04-02 15:21 | Pharmacy Progress Note ---
Pharmacist Post D/C Phone Note Date of phone call: Apr 02, 2017. Individual with whom pharmacist spoke to: Spoke with Ms. Grier The following questions were reviewed during the phone call with responses listed below each: Can you tell me the medications that you are currently taking as well as when and how you take each medication? - Aspirin 325mg QD & Lipitor 40mg HS When have you missed any doses of your medications? - none What side effects are you having from your medications? - none What questions do you have about your medications? - none What problems are you having obtaining your medications? - none, she has "excellent insurance" When is your next appointment with your primary care doctor? - 04/10 Rheum - 04/11 PCP Additional comments: - Pt exhibited a strong understanding of her two new medicatiosn As per the Pharmacist Discharge Counseling for Stroke Patients Protocol, this phone call has been completed within 72 hours of discharge. Thank you for allowing us to be involved in the care of this patient. Thank you for allowing us to be involved in the care of this patient.
== END 2017-03-30 10:56 | disposition home or self-care (01) | DRG 66 ==
LOC: C.EDB 15:14 → C.2E 17:55 → ENRESERV 18:33
PROVIDERS: ADMIT Internal Medicine; ATTEND Internal Medicine
DX: I63.40 Cerebral infarction due to embolism of unspecified cerebral artery (principal); M35.3 Polymyalgia rheumatica; E78.5 Hyperlipidemia, unspecified; E03.9 Hypothyroidism, unspecified; I35.1 Nonrheumatic aortic (valve) insufficiency; I10 Essential (primary) hypertension; Z85.820 Personal history of malignant melanoma of skin; Z80.9 Family history of malignant neoplasm, unspecified; Z82.49 Family history of ischemic heart disease and other diseases of the circulatory system

== ENCOUNTER → 2017-03-28 | Outpatient (CLI) | payer BC ==
[~2017-03-28] MED LIST changes: +GADAVIST IV PRN
--- NOTE | 2017-03-28 13:30 | DIAGNOSTIC IMAGING REPORT ---
Brain MRI WITH AND WITHOUT CONTRAST HISTORY: HEADACHE, HX OF MELANOMA TECHNIQUE: Multiplanar multisequence MRI of the brain was performed both before and after the intravenous administration of contrast. COMPARISON STUDY: None. FINDINGS: Multiple scattered foci of increased signal within the cerebellar hemispheres, left posterior frontal lobe, and bilateral parietal and occipital lobes on the DWI sequences. The majority of these do not demonstrate clear loss of signal on the ADC map and therefore favor T2 shine through. The majority of these favor subacute to chronic infarcts. A single 5 mm focus within the left cerebellar hemisphere on image 5 appears to represent restricted diffusion and is consistent with an acute infarct. Dominant focus of suspected subacute infarct within the right cerebellar hemisphere measures 2 cm. Multiple additional small focal old infarcts within the bilateral cerebellar hemispheres and right parietal lobe. Some of these demonstrate faint linear enhancement best seen within the left posterior frontal lobe on image 16 and the right posterior cerebellum on image 5. This can also be seen in the setting of subacute infarcts. No areas of masslike enhancement identified. The major vascular flow-voids at the skull base are well-maintained. Small retention cysts within the left maxillary sinus. The orbits are unremarkable. Mild atrophic changes within the brain. There are also mild microvascular ischemic changes seen within the periventricular white matter. IMPRESSION: Multiple scattered areas of signal abnormality within the brain as described above with the majority favoring subacute to chronic infarcts. Possible punctate acute infarct within the left cerebellar hemisphere measuring 5 mm. The right cerebellar and left frontal areas of signal abnormality demonstrate faint linear enhancement which can be seen in the setting of subacute infarcts. No areas of masslike enhancement to suggest metastatic disease. A 1-2 month brain MRI follow-up is recommended to ensure the expected evolution of the subacute to chronic infarcts and resolution of the enhancement. These findings were discussed with Dr. Debra Giordano at 1:55 PM on 03/28/2017. Electronically signed by: Nasir Mullen M.D. 03/28/2017 2:00 PM Dictated Date/Time: 03/28/2017 1:10 PM
== END | disposition home or self-care (01) ==
LOC: C.MRIBC 11:41
PROVIDERS: ATTEND Dermatology
DX: R51 Headache (principal); Z85.820 Personal history of malignant melanoma of skin

== ENCOUNTER → 2017-04-09 | Outpatient (CLI) | payer BC ==
[~2017-04-09] MED LIST changes: +ASPEC325 PO; -ATOR10TA88 PO; +CHOL1000 PO; -LEVO88TA PO; +LPT40 PO; +PRED-301 PO; +SYN100 PO
== END | disposition home or self-care (01) ==
LOC: C.LABBC 08:27
PROVIDERS: ATTEND Internal Medicine Rheumatology
DX: M35.3 Polymyalgia rheumatica (principal); Z79.52 Long term (current) use of systemic steroids

== ENCOUNTER → 2017-05-14 | Outpatient (CLI) | payer BC ==
[2017-05-14 11:25] LABS: BLOOD UREA NITROGEN 19 mg/dl (7-18); BUN/CREATININE RATIO 21.7 (10-20); CARBON DIOXIDE 32 mmol/L (21-32); CHLORIDE 104 mmol/L (98-107); CREATININE 0.88 mg/dl (0.60-1.20); GLUCOSE 96 mg/dl (70-99); POTASSIUM 3.5 mmol/L (3.5-5.1); SODIUM 141 mmol/L (136-145)
== END | disposition home or self-care (01) ==
LOC: C.LABBC 09:00
PROVIDERS: ATTEND Internal Medicine Rheumatology
DX: E03.9 Hypothyroidism, unspecified (principal); M35.3 Polymyalgia rheumatica; Z79.52 Long term (current) use of systemic steroids; I63.9 Cerebral infarction, unspecified; R73.9 Hyperglycemia, unspecified

== ENCOUNTER → 2017-06-11 | Outpatient (CLI) | payer BC ==
[~2017-06-11] MED LIST changes: +GADAVIST IV PRN
--- NOTE | 2017-06-11 12:01 | DIAGNOSTIC IMAGING REPORT ---
MRI OF THE BRAIN WITHOUT AND WITH IV CONTRAST CLINICAL HISTORY: Follow up stroke. COMPARISON STUDY: MRI of the brain March 28, 2017. TECHNIQUE: Utilizing a 1.5 Gema magnet and dedicated coil, multiplanar, multiecho imaging of the brain was performed pre and postcontrast administration. IV administration of 7.5 mL of Gadavist contrast was uneventful. FINDINGS: No foci of restricted diffusion are noted. There has been expected evolution of the multifocal infarcts shown on MRI of March 28, 2017. Enhancement has resolved. Ventricular system is stable. Basilar cisterns are patent. There are no extra-axial collections. No new infarcts are identified on this examination. Calvarial signal is normal. No intracranial mass or pathologic enhancement is identified. Flow-voids for the major intracranial vessels are present. IMPRESSION: 1. No acute intracranial findings. 2. Expected evolution of multifocal infarcts shown on MRI of March 28, 2017. No residual enhancement or restricted diffusion. Electronically signed by: Dane Bal M.D. 06/11/2017 12:00 PM Dictated Date/Time: 06/11/2017 11:56 AM
== END | disposition home or self-care (01) ==
LOC: C.MRIBC 08:47
PROVIDERS: ATTEND Physician Assistant Medical
DX: I63.9 Cerebral infarction, unspecified (principal)

== ENCOUNTER → 2017-06-12 | Outpatient (CLI) | payer BC ==
[~2017-06-12] MED LIST changes: -GADAVIST IV PRN
--- NOTE | 2017-06-12 14:30 | MAMMOGRAPHY REPORT ---
BILATERAL DIGITAL SCREENING MAMMOGRAM TOMOSYNTHESIS WITH CAD: 06/12/2017 CLINICAL HISTORY: Routine screening. Patient has no complaints. TECHNIQUE: Breast tomosynthesis in addition to standard 2D mammography was performed. Current study was also evaluated with a Computer Aided Detection (CAD) system. COMPARISON: Comparison is made to exams dated: 06/08/2016 mammogram, 06/07/2015 mammogram, 4 mammogram, 06/03/2013 mammogram, 05/29/2012 mammogram, and 05/24/2011 mammogram - [facility]. BREAST COMPOSITION: There are scattered areas of fibroglandular density in both breasts. FINDINGS: The parenchymal pattern is similar to prior exams. An asymmetry in the lateral right lala st on the CC view appears very similar on prior mammograms dating back to at least 05/12/2009, theref ore likely benign. There is a stable intramammary lymph node in the superior posterior right breast on the MLO view. A few benign coarse calcifications bilaterally. No developing mass, architectural d istortion or cluster of suspicious microcalcifications is seen in either breast. IMPRESSION: ACR BI-RADS CATEGORY 2: BENIGN There is no mammographic evidence of malignancy. A 1 year screening mammogram is recommended. The pa tient will receive written notification of the results. Approximately 10% of breast cancers are not detected with mammography. A negative mammographic report should not delay biopsy if a clinically suggestive mass is present. Melany Goins M.D. ay/:06/12/2017 09:19:01 Third Loader: Tamar Reed, [facility] letter sent: Normal 1/2 BI-RADS Code: ACR BI-RADS Category 2: Benign
== END | disposition home or self-care (01) ==
LOC: C.MAMM 08:40
PROVIDERS: ATTEND Internal Medicine Geriatric Medicine
DX: Z12.31 Encounter for screening mammogram for malignant neoplasm of breast (principal)

== ENCOUNTER → 2017-06-22 | Outpatient (CLI) | payer BC | END | disposition home or self-care (01) | LOC: C.LABBC 13:56 | PROVIDERS: ATTEND Internal Medicine Infectious Disease | DX: M35.3 Polymyalgia rheumatica (principal); R70.0 Elevated erythrocyte sedimentation rate ==

== ENCOUNTER → 2017-08-01 | Outpatient (CLI) | payer BC ==
[2017-08-01 11:06] LABS: BASO % 0.7 %; BASO ABS # 0.06 K/uL (0-0.2); EOS % 1.4 %; EOS ABS # 0.12 K/uL (0-0.5); HEMATOCRIT 42.5 % (37-47); HEMOGLOBIN 13.6 g/dL (12.0-16.0); IG# 0.03 K/uL (0.00-0.02); LYMPH % 32.9 %; LYMPH ABS # 2.79 K/uL (1.2-3.4); MEAN CELL VOLUME 93.8 fL (80-100); MEAN PLATELET VOLUME 10.4 fL (7.4-10.4); MONO % 11.2 %; MONO ABS # 0.95 K/uL (0.11-0.59); NEUT % 53.4 %; NEUT ABS # 4.54 K/uL (1.4-6.5); PLATELET COUNT 260 K/uL (130-400); RED CELL DISTRIBUTION WIDTH CV 14.4 % (11.5-14.5); RED CELL DISTRIBUTION WIDTH SD 49.1 fL (36.4-46.3); WHITE BLOOD COUNT 8.49 K/uL (4.8-10.8)
[2017-08-01 11:18] LABS: ALBUMIN 3.5 gm/dl (3.4-5.0); ALT/SGPT 27 U/L (12-78); AST/SGOT 13 U/L (15-37); BLOOD UREA NITROGEN 16 mg/dl (7-18); CALCIUM 9.1 mg/dl (8.5-10.1); CARBON DIOXIDE 33 mmol/L (21-32); CHOLESTEROL 174 mg/dl (0-200); CREATININE 0.88 mg/dl (0.60-1.20); GLUCOSE 96 mg/dl (70-99); POTASSIUM 3.4 mmol/L (3.5-5.1); SODIUM 140 mmol/L (136-145)
[2017-08-01 11:21] LABS: ALKALINE PHOSPHATASE 62 U/L (45-117); LDL CHOLESTEROL CALCULATED 74 mg/dl; TOTAL PROTEIN 6.5 gm/dl (6.4-8.2)
[2017-08-01 11:44] LABS: HEMOGLOBIN A1C 6.3 % (4.5-5.6)
== END | disposition home or self-care (01) ==
LOC: C.LABBC 08:13
PROVIDERS: ATTEND Internal Medicine Rheumatology
DX: E03.9 Hypothyroidism, unspecified (principal); E55.9 Vitamin D deficiency, unspecified; E78.5 Hyperlipidemia, unspecified; I48.0 Paroxysmal atrial fibrillation; R31.9 Hematuria, unspecified; R73.9 Hyperglycemia, unspecified

== ENCOUNTER → 2017-09-20 | Outpatient (CLI) | payer BC | END | disposition home or self-care (01) | LOC: C.LABBC 09:11 | PROVIDERS: ATTEND Internal Medicine Rheumatology | DX: M35.3 Polymyalgia rheumatica (principal); M79.1 Myalgia; Z79.52 Long term (current) use of systemic steroids ==

== ENCOUNTER → 2017-10-15 | Outpatient (CLI) | payer BC | END | disposition home or self-care (01) | LOC: C.LABBC 10:20 | PROVIDERS: ATTEND Internal Medicine Rheumatology | DX: E03.9 Hypothyroidism, unspecified (principal); E78.5 Hyperlipidemia, unspecified; R31.9 Hematuria, unspecified; R73.9 Hyperglycemia, unspecified; I48.0 Paroxysmal atrial fibrillation; E55.9 Vitamin D deficiency, unspecified ==

== ENCOUNTER → 2017-10-18 | Outpatient (CLI) | payer BC ==
[~2017-10-18] MED LIST changes: +OPTIRAY 320 IV PRN
--- NOTE | 2017-10-18 15:51 | DIAGNOSTIC IMAGING REPORT ---
CT OF THE ABDOMEN AND PELVIS WITH AND WITHOUT CONTRAST HEMATURIA PROTOCOL CLINICAL HISTORY: Hematuria. COMPARISON STUDY: Pelvic ultrasound April 28, 2016. TECHNIQUE: Unenhanced and split bolus phase imaging of the abdomen and pelvis was performed. Injection of 114 cc Optiray 320 IV was uneventful. A dose lowering technique was utilized adhering to the principles of ALARA. CT DOSE: 1542.94 mGycm FINDINGS: Lung bases are clear. Mild dilatation of visualized portions of the ascending aorta is noted, measuring 4.1 cm. Multiple hepatic cysts are noted. The spleen, adrenal glands and pancreas are unremarkable. The gallbladder is surgically absent. Note is made of a 5 mm calculus within the upper pole of the left kidney. There are no ureteral calculi. There is no hydronephrosis or hydroureter. There are bilateral parapelvic cysts. No upper tract urothelial lesions are identified. Bladder is incompletely opacified but no bladder lesion is identified. There is no evidence for a bowel obstruction. There is sigmoid diverticulosis without evidence for acute diverticulitis. No suspicious osseous lesions are present. Old T12 and L1 compression deformities are noted. There is slight loss of height of L5. Several hypodense enhancing uterine lesions measuring up to 2.4 cm likely reflect fibroids, shown on ultrasound of April 28, 2016. An endometrial thickening shown on the postcontrast images is probably artifactual. IMPRESSION: 1. 5 mm left renal calculus. No ureteral calculi or hydronephrosis. 2. No upper tract urothelial lesion. No solid renal lesion. 3. Incomplete opacification of the bladder but no bladder lesion identified. 4. Several suspected uterine fibroids. Apparent endometrial thickening is likely artifactual however correlation with postmenopausal bleeding and a follow-up pelvic ultrasound is recommended. 5. Mild dilatation of visualized portions of the ascending aorta, measuring 4.1 cm. Electronically signed by: Dane Bal M.D. 10/18/2017 3:50 PM Dictated Date/Time: 10/18/2017 3:37 PM
== END | disposition home or self-care (01) ==
LOC: C.CTS 14:17
PROVIDERS: ATTEND Internal Medicine Geriatric Medicine
DX: R31.29 Other microscopic hematuria (principal); N20.0 Calculus of kidney

== ENCOUNTER → 2017-10-26 | Outpatient (CLI) | payer BC ==
[~2017-10-26] MED LIST changes: -OPTIRAY 320 IV PRN
== END | disposition home or self-care (01) ==
LOC: C.LABBC 08:41
PROVIDERS: ATTEND Internal Medicine Rheumatology
DX: M35.3 Polymyalgia rheumatica (principal); M79.1 Myalgia; Z79.52 Long term (current) use of systemic steroids

== ENCOUNTER → 2017-10-31 | Outpatient (CLI) | payer BC ==
--- NOTE | 2017-10-31 10:21 | DIAGNOSTIC IMAGING REPORT ---
ULTRASOUND OF THE PELVIS CLINICAL HISTORY: Endometrial thickening questioned by CT. Fibroids. COMPARISON STUDY: Pelvic CT dated 10/18/2017. Pelvic ultrasound dated 04/28/2016. TECHNIQUE: Real-time, grayscale, and color flow sonography of the pelvis is performed endovaginally. Images are reviewed in the transverse and longitudinal planes. FINDINGS: Uterus: The uterus is normal in size and echotexture, measuring 5.8 x 3.3 x 3.6 cm. There are least 2 ovoid nodules which measure up to 1.4 cm. Endometrium: The endometrium is normal in appearance, and the endometrial stripe is top normal in thickness measuring 3-4 mm. Trace fluid is noted within the endometrial canal. Ovaries: The ovaries were not visualized. Pelvis: There is no free fluid in the cul-de-sac. No concerning adnexal lesion is seen. IMPRESSION: 1. There are at least 2 ovoid soft tissue nodules identified in the uterus. These are pathologically indeterminant but likely represent fibroids. Clinical correlation will be required. 2. The endometrial stripe is top normal in thickness for age measuring 3-4 mm. Trace fluid is present within the endometrial canal and likely related to atrophy. 3. The ovaries were not visualized. Electronically signed by: Handy Singh M.D. 10/31/2017 10:19 AM Dictated Date/Time: 10/31/2017 10:13 AM
== END | disposition home or self-care (01) ==
LOC: C.ULTR 09:15
PROVIDERS: ATTEND Internal Medicine Geriatric Medicine
DX: R93.8 Abnormal findings on diagnostic imaging of other specified body structures (principal)

== ENCOUNTER → 2017-11-14 | Outpatient (CLI) | payer BC | END | disposition home or self-care (01) | LOC: C.PATHSPEC 17:30 | PROVIDERS: ATTEND Urology | DX: N20.0 Calculus of kidney (principal); R31.29 Other microscopic hematuria ==

== ENCOUNTER → 2017-12-10 | Outpatient (CLI) | payer BC | END | disposition home or self-care (01) | LOC: C.LABBC 08:15 | PROVIDERS: ATTEND Internal Medicine Rheumatology | DX: Z51.81 Encounter for therapeutic drug level monitoring (principal); M35.3 Polymyalgia rheumatica; M79.1 Myalgia; Z79.51 Long term (current) use of inhaled steroids ==

== ENCOUNTER → 2018-02-15 | Outpatient (CLI) | payer BC ==
[2018-02-15 11:46] LABS: HEMOGLOBIN A1C 6.2 % (4.5-5.6)
[2018-02-15 14:23] LABS: ALBUMIN 3.5 gm/dl (3.4-5.0); ALKALINE PHOSPHATASE 49 U/L (45-117); ALT/SGPT 25 U/L (12-78); AST/SGOT 17 U/L (15-37); BLOOD UREA NITROGEN 24 mg/dl (7-18); CALCIUM 8.8 mg/dl (8.5-10.1); CARBON DIOXIDE 30 mmol/L (21-32); CREATININE 0.93 mg/dl (0.60-1.20); GLUCOSE 99 mg/dl (70-99); POTASSIUM 3.7 mmol/L (3.5-5.1); SODIUM 142 mmol/L (136-145); TOTAL PROTEIN 6.3 gm/dl (6.4-8.2)
== END | disposition home or self-care (01) ==
LOC: C.LABBC 09:08
PROVIDERS: ATTEND Physician Assistant Medical
DX: M35.3 Polymyalgia rheumatica (principal); Z79.52 Long term (current) use of systemic steroids; M70.61 Trochanteric bursitis, right hip; L73.9 Follicular disorder, unspecified; E78.5 Hyperlipidemia, unspecified; I35.1 Nonrheumatic aortic (valve) insufficiency; R73.9 Hyperglycemia, unspecified

== ENCOUNTER 2024-06-20 12:49 | Observation (INO) ==
--- NOTE | 2024-06-20 13:04 | Emergency Department Note ---
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 IV was established and blood work was obtained along CT and CT angiography of the head and neck. Patient's blood work shows a normal white count hemoglobin and platelet count. The patient's kidney function unremarkable. Patient CT head and CT angiography of the head and neck are negative. Nodular thyroid noted on the left. I did speak the on-call neurologist Dr. Hsu who recommended baby aspirin MRI and admission. It is with the on-call hospitalist service and the patient was admitted. Discussion w/ other healthcare providers: Dr. Hsu neurology PJ MERLENE Otero and Dr. Briscoe inpatient medicine service Prior /Outside records reviewed: I reviewed part of a primary care visit from 03/21/[address] Cotter. Known history of A-fib PMNR and prediabetes. I did review part of a cardiology visit from Dr. Plunkett from February 13, 2024. Paroxysmal A-fib continue rate control strategy with metoprolol anticoagulation therapy procedure lasts but only 1 documented short episode of A-fib. Patient did have evidence of embolic stroke per MRI from 2017. Differential diagnosis: Infection, dehydration, metabolic abnormality, hypo/hyperglycemia, electrolyte imbalance, anemia, UTI, pneumonia, thyroid dysfunction among others were considered. Diagnostics, as interpreted by me: ECG: Normal sinus rhythm, rate of 80, normal intervals, normal axis Q-wave noted inferiorly. No obvious STEMI. Atrial flutter with variable AV block, rate of 81, normal QRS duration, normal axis no obvious STEMI. Cardiac monitoring: An order was placed for continuous cardiac monitoring. The monitor shows a rate of 79 with flutter rhythm. Patient was placed on pulse oximetry Medical decision rules: None Imaging studies: I informally interpreted the patient's CT head does not show obvious ICH right- sided occipital encephalomalacia with formal report to follow. HPI: Patient presents with family due to concern for episodes of possible weakness. The patient reports that about 2 weeks ago she was at a sabianism group when she had some heaviness decree sensation to her left upper extremity. The patient denies any falls or trauma. The symptoms were brief and subsequently went away. The patient does have a known history of A-fib and is taking Eliquis. She last took it this morning. Patient states that she had 2 episodes today where she had some numbness and weakness in the leg that since resolved and then later in the day the patient had some associated difficulty with walking but was unaware of maybe some weakness in the left leg. Patient currently feels "fine." Patient denies any head or neck pain patient does have chronic back pain but does not believe it is related to her symptoms. No fevers or chills no chest pains or shortness of breath. Patient does follow with Dr. Plunkett for her A-fib. Patient does not currently take any antiplatelets. PAST MEDICAL HISTORY: See Below PAST SURGICAL HISTORY: See Below SOCIAL HISTORY: See Below HOME MEDICATIONS: See Below ALLERGIES: See Below VITALS: See Below PHYSICAL EXAMINATION: GENERAL: NAD, non-toxic. EYE EXAM: Normal conjunctiva. PERRL, no anisocoria and EOM's grossly intact w/o pain. OROPHARYNX: Moist mucus membranes, grossly normal dentition. NECK: Trachea midline, no stridor. LUNGS: Clear to auscultation. Normal chest wall mechanics. HEART: NSR, no MRG. ABDOMEN: Abdomen soft, non-tender, no masses, no rebound or guarding. BACK: No CVA TTP. SKIN: No rashes and no bruising. UPPER EXTREMITIES: Upper extremities are grossly normal. LOWER EXTREMITIES: Grossly normal, no edema. NEURO EXAM: A&O x3, cranial nerves II-XII grossly intact, normal speech, moves all 4 extremities. Good [id number], no drift and no sensory deficits, good [id number]. 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 (Acute) Numbness (Acute) Atrial flutter (Acute) Stroke-like symptoms (Acute) TIA (transient ischemic attack) Ambulatory dysfunction Stroke-like symptoms Sinusitis Atrial flutter Low back pain radiating to right lower extremity Disc degeneration, lumbosacral Paroxysmal atrial fibrillation (Chronic) Followed by Cardiology Ascending aorta dilation Aortic regurgitation Dyslipidemia Hypothyroidism Prediabetes (Chronic) GERD (gastroesophageal reflux disease) Osteopenia (Chronic) [facility] Rheumatology Polymyalgia rheumatica (Chronic) [facility] Rheumatology Medical History Right knee pain Calcium nephrolithiasis History of malignant melanoma of skin History of embolic stroke Identified on MRI during workup of headaches in 2017. [place] that this was related to underlying afib. No residual deficit Osteoarthritis Primarily of cervical region, hands, wrists, shoulder. APAP prn for pain. Recent corticosteroid injection of left shoulder and right knee Kidney stones Hypothyroidism Surgical History H/O knee surgery open. to remove bone cyst History of bilateral tubal ligation History of dilatation and curettage History of cystoscopy History of colonoscopy 10/2006, no further screening secondary to age History of cholecystectomy History of tonsillectomy History of adenoidectomy History of cataract surgery RT/LEFT Family History Mother Myocardial infarction Cardiac disorder Hypertension Kidney stones Father Cardiac disorder Sister Kidney stones Brother Kidney stones Urinary bladder cancer Denies family history of Colon cancer Ovarian cancer Prostate cancer Breast cancer Lung cancer Colorectal cancer Social History Smoking Status: Never smoker Second Hand Exposure: No; Do You Dip or Chew Tobacco: No; Hx Alcohol Use: Yes Alcohol type: wine Hx Substance Use: No Preferred Language: Sinhala Communication Ability: Effective Visual Impairment: Limited Hearing Ability: Normal 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 Beliefs That Will Affect Care: None marital status: / Current Living Situation: Alone Current Living Situation Comment: Home by herslef current occupational status: retired How many Children do You have: 3 Feels Safe at Home: Yes Childhood Exposure to Second-Hand Smoke: Yes Diet: regular caffeine: Yes Dental Care, Regularly: Yes Physical Activity Frequency: 3-4 Times per Week Physical Activity Frequency Comment: garden work 3-4 times a week, outside work Seatbelt Use: always Sunscreen Use: Yes Assistive Devices: None Allergies Allergies Allergy/AdvReac Type Severity Reaction Status Date / Time adhesive Allergy Mild RASH AND Verified 06/20/24 17:55 ITCHING neomycin Allergy Mild RASH AND Verified 06/20/24 17:55 ITCHING polymyxin B Allergy Mild RASH AND Verified 06/20/24 17:55 ITCHING clarithromycin [From Biaxin] AdvReac Intermediate Nightmares Verified 06/20/24 17:55 doxycycline AdvReac Intermediate nausea / Verified 06/20/24 17:55 vomiting / abd pain hydrocodone AdvReac Intermediate NAUSEA Verified 06/20/24 17:55 morphine AdvReac Intermediate CONFUSION, Verified 06/20/24 17:55 HALLUCINATIONS Home Meds Home Medications Medication Instructions Recorded Confirmed calcium 500 mg (as 1 tab PO DAILY 11/26/18 06/20/24 carbonate)-vitamin D3 5 mcg (200 unit) tablet (Os-Gomez 500 + D3) cholecalciferol (vitamin D3) 125 5,000 unit PO DAILY 11/26/18 06/20/24 mcg (5,000 unit) tablet (Vitamin D3) cetirizine 10 mg capsule (Zyrtec) 10 mg PO BID PRN ALLERGY RELIEF 12/09/21 06/20/24 apixaban 5 mg tablet (Eliquis) 5 mg PO BID 06/20/24 06/20/24 levothyroxine 88 mcg tablet 88 mcg PO DAILY 06/20/24 06/20/24 (Synthroid) Previous Rx's Medication Instructions Recorded metoprolol succinate 50 mg 50 mg PO QAM #90 tabs 07/27/23 tablet,extended release 24 hr omeprazole 40 mg capsule,delayed 40 mg PO DAILY PRN 09/20/23 release HEARTBURN/INDIGESTION #90 caps atorvastatin 40 mg tablet 40 mg PO HS #90 tabs 01/15/24 aspirin 81 mg tablet,delayed 81 mg PO QAM #30 tabs 06/21/24 release Results & Data (ED) Vital Signs Vital Signs - 24 hr 06/20/24 12:52 06/20/24 13:38 06/20/24 14:00 Temperature 36.3 C L Temperature Source Oral Pulse Rate 90 107 H 80 Pulse Rate from SpO2 Sensor 77 Respiratory Rate 20 18 Respiratory Effort / Characteristics Non-Labored Respiratory Depth Normal Blood Pressure 178/93 H 160/91 H Blood Pressure Mean 121 114 Pulse Oximetry 93 98 Oxygen Delivery Method Room Air Sepsis Recent Fever Within 48 Hours No Sepsis New/Unexplained Change in Mental Status No Sepsis Action Taken by Nursing No Action Required Home Medications Current Medication List: was personally reviewed by me Laboratory Data Attestation: I reviewed the patient's lab results. 06/21/24 05:26 06/21/24 05:26 Lab Results 06/20/24 06/20/24 Range/Units 13:30 13:39 WBC 9.98 (4.8-10.8) K/ul RBC 4.76 (4.20-5.40) M/uL Hgb 13.1 (12.0-16.0) g/dl POC Hgb 13.9 (12.0-16.0) g/dl Hct 41.3 (37.0-47.0) % POC Hct 41 (37-47) % MCV 86.8 (80.0-100.0) fL MCH 27.5 (25.0-34.0) pg MCHC 31.7 L (32.0-36.0) g/dL RDW Std Deviation 44.5 (36.4-46.3) fL RDW Coeff of Shivam 14.0 (11.5-14.5) % Plt Count 278 (130-400) K/uL MPV 10.4 (9.4-12.4) fL Immature Gran % (Auto) 0.3 % Neut % (Auto) 64.7 % Lymph % (Auto) 18.4 % [place] % (Auto) 9.6 % Eos % (Auto) 6.2 % Baso % (Auto) 0.8 % Neut # (Auto) 6.45 (1.40-6.50) K/uL Lymph # (Auto) 1.84 (1.20-3.40) K/uL [place] # (Auto) 0.96 H (0.11-0.59) K/uL Eos # (Auto) 0.62 H (0.00-0.50) K/uL Baso # (Auto) 0.08 (0.00-0.20) K/uL Immature Gran # (Auto) 0.03 (0.01-0.20) K/uL PT 11.3 (9.0-12.0) Seconds INR 1.0 (0.9-1.1) APTT 28 (21-31) Seconds PTT Ratio 1.0 POC Sodium 141 (135-144) mmol/L Sodium 141 (136-145) mmol/L POC Potassium 3.7 (3.3-5.0) mmol/L Potassium 3.7 (3.5-5.1) mmol/L POC Chloride 106 (101-112) mmol/L Chloride 109 H (98-107) mmol/L Carbon Dioxide 27 (21-32) mmol/L POC Total CO2 23 L (24-31) mmol/L Anion Gap 5 (3-11) POC Anion Gap 16.0 (16-25) mmol/L POC BUN 23 H (7-18) mg/dl BUN 22 (6-23) mg/dl Creatinine 0.76 (0.6-1.2) mg/dl POC Creatinine 0.8 (0.6-1.3) mg/dl Est Cr Clr Drug Dosing 53.4 ml/min eGFR 77.22 BUN/Creatinine Ratio 28.9 H (10-20) Glucose 113 H (70-99(Fasting)) mg/dl POC Glucose (other) 110 H (70-99) mg/dl Calcium 9.0 (8.6-10.3) mg/dl POC Ioniz Calcium Elizabeth 1.14 (1.12-1.32) mmol/l Magnesium 2.1 (1.7-2.4) mg/dl Total Bilirubin 0.9 (0.2-1.0) mg/dl AST 14 (13-39) U/L ALT 12 (7-52) U/L Alkaline Phosphatase 84 (34-104) U/L Troponin I High Sens 7.7 (0-14) pg/ml Total Protein 6.9 (6.0-8.3) gm/dl Albumin 4.0 (3.4-5.0) gm/dl Globulin 2.9 (2.5-4.0) gm/dl Albumin/Globulin Ratio 1.4 (0.9-2) Administered Medications Discontinued Medications Apixaban (Apixaban 5 Mg Tablet) 5 mg PO BID EMILIA Stop: 07/20/24 21:14 Last Admin: 06/21/24 08:56 Dose: 5 mg Documented By: Admin: 06/20/24 22:08 Dose: 5 mg Documented By: IMANI Aspirin (Aspirin 81 Mg Ectab) 81 mg PO NOW STA Stop: 06/20/24 17:04 Last Admin: 06/20/24 17:10 Dose: 81 mg Documented By: LARY Aspirin (Aspirin 81 Mg Ectab) [facility] [place] Stop: 07/21/24 08:59 Last Admin: 06/21/24 08:56 Dose: 81 mg Documented By: RICHA Atorvastatin Calcium (Atorvastatin 40 Mg Tab) 40 mg PO HS [facility] Stop: 07/20/24 21:14 Last Admin: 06/20/24 22:08 Dose: 40 mg Documented By: IMANI Levothyroxine Sodium (Levothyroxine Sodium 88 Mcg Tablet) 88 mcg PO DAILYBB [facility] Stop: 07/21/24 06:29 Last Admin: 06/21/24 05:29 Dose: 88 mcg Documented By: IMANI Metoprolol Succinate (Metoprolol Succ 50mg Ext Rel Tab) [facility] [place] Stop: 07/21/24 08:59 Last Admin: 06/21/24 08:56 Dose: 50 mg Documented By: RICHA Imaging Data Radiologist's Impression: Head CT 06/20/24 13:26 EXAM: CT Head Without Intravenous Contrast INDICATION: Unspecified neurologic defect. TECHNIQUE: Axial computed tomography images of the head/brain without intravenous contrast. Sagittal and/or coronal reformats are provided. Sagittal and coronal reformatted images were created and reviewed. This CT exam was performed using one or more of the following dose reduction techniques: automated exposure control, adjustment of the mA and/or kV according to patient size, and/or use of iterative reconstruction technique. COMPARISON: MRI 06/11/2017 FINDINGS: Limitations: None. Brain and extra-axial spaces: There is age appropriate cortical atrophy and chronic ischemic periventricular white matter hypodensity. No acute infarct, hemorrhage or mass noted. Symmetrical bilateral parietal encephalomalacia consistent with old insults. Bones/joints: No acute changes. Soft tissues: No significant abnormality noted. Vasculature: No acute abnormality noted. Sinuses: Mucosal thickening and mild layering fluid involves the bilateral frontal, maxillary, sphenoid and ethmoid sinuses. Mastoid air cells: No mastoid effusion. Orbits: No significant abnormality noted. IMPRESSION: 1. Cerebral atrophy. No acute changes. 2. Acute on chronic sinusitis. ACT 112: Negative or not required by law. Electronically signed by Melissa Lawson 06-20-2024 2:06 PM Neck CTA 06/20/24 13:26 EXAM: CT Angiography Neck With Intravenous Contrast INDICATION: Neurologic deficit unspecified. TECHNIQUE: Routine carotid CT angiography protocol was performed with intravenous contrast. NASCET criteria using the distal ICAs for comparison were used for evaluation of stenoses. Sagittal and coronal reformatted images were created and reviewed. This CT exam was performed using one or more of the following dose reduction techniques: automated exposure control, adjustment of the mA and/or kV according to patient size, and/or use of iterative reconstruction technique. MIP reconstructed images were created and reviewed. CONTRAST: 119ml of Optiray 320 was administered intravenously. COMPARISON: None. FINDINGS: VASCULATURE: Right common carotid artery: No abnormality noted. No occlusion or significant stenosis. No dissection. Right internal carotid artery: No abnormality noted. Extracranial segment is patent with no occlusion or significant stenosis. No dissection. Right external carotid artery: No abnormality noted. No occlusion. Right vertebral artery: No abnormality noted. No occlusion or significant stenosis. No dissection. Left common carotid artery: No abnormality noted. No occlusion or significant stenosis. No dissection. Left internal carotid artery: No abnormality noted. Extracranial segment is patent with no occlusion or significant stenosis. No dissection. Left external carotid artery: No abnormality noted. No occlusion. Left vertebral artery: No abnormality noted. No occlusion or significant stenosis. No dissection. Aorta: There is mild atherosclerotic calcification of the aortic arch and proximal left subclavian artery. NECK: Bones/joints: Degenerative changes noted throughout the spine. No acute osseous abnormality seen. Soft tissues: No abnormality noted. Sinuses: Mild acute on chronic pansinusitis. Thyroid: Multiple nodules noted in the left thyroid the largest measuring 1.3 x 1.1 cm. Right thyroidectomy. Lung apices: Clear. CAROTID STENOSIS REFERENCE USING NASCET CRITERIA: % ICA stenosis = (1 - narrowest ICA diameter/diameter of distal cervical ICA) x 100. Mild - <50% stenosis. Moderate - 50-69% stenosis. Severe - 70-94% stenosis. Near occlusion - 95-99% stenosis. Occluded - 100% stenosis. IMPRESSION: 1. No angiographic abnormality in the neck. 2. Multinodular left thyroid. 3. Acute on chronic pansinusitis. ACT 112: Negative or not required by law. 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
[2024-06-20 13:49] LABS: Basophils # (auto) 0.08 K/uL (0.00-0.20); Basophils % (auto) 0.8 %; Eosinophils # (auto) 0.62 K/uL (0.00-0.50); Eosinophils % (auto) 6.2 %; Hematocrit (blood only) 41.3 % (37.0-47.0); Hemoglobin 13.1 g/dl (12.0-16.0); Immature Granulocytes # (auto) 0.03 K/uL (0.01-0.20); Immature Granulocytes % (auto) 0.3 %; Lymphocytes # (auto) 1.84 K/uL (1.20-3.40); Lymphocytes % (auto) 18.4 %; Mean Corpuscular Hemoglobin 27.5 pg (25.0-34.0); Mean Corpuscular Hgb Conc 31.7 g/dL (32.0-36.0); Mean Corpuscular Volume 86.8 fL (80.0-100.0); Mean Platelet Volume 10.4 fL (9.4-12.4); Monocytes # (auto) 0.96 K/uL (0.11-0.59); Monocytes % (auto) 9.6 %; Neutrophils # (auto) 6.45 K/uL (1.40-6.50); Neutrophils % (auto) 64.7 %; Platelet Count 278 K/uL (130-400); RDW Standard Deviation 44.5 fL (36.4-46.3); Red Blood Count 4.76 M/uL (4.20-5.40); White Blood Count 9.98 K/ul (4.8-10.8)
[2024-06-20 13:51] LABS: iSTAT Creatinine 0.8 mg/dl (0.6-1.3); iSTAT Hemoglobin 13.9 g/dl (12.0-16.0); iSTAT Ionized Calcium 1.14 mmol/l (1.12-1.32); iSTAT Potassium 3.7 mmol/L (3.3-5.0)
[2024-06-20 14:04] LABS: Bilirubin,Total 0.9 mg/dl (0.2-1.0); Magnesium 2.1 mg/dl (1.7-2.4); Potassium 3.7 mmol/L (3.5-5.1)
--- NOTE | 2024-06-20 14:06 | CT Scan Report ---
EXAM: CT Head Without Intravenous Contrast INDICATION: Unspecified neurologic defect. TECHNIQUE: Axial computed tomography images of the head/brain without intravenous contrast. Sagittal and/or coronal reformats are provided. Sagittal and coronal reformatted images were created and reviewed. This CT exam was performed using one or more of the following dose reduction techniques: automated exposure control, adjustment of the mA and/or kV according to patient size, and/or use of iterative reconstruction technique. COMPARISON: MRI 06/11/2017 FINDINGS: Limitations: None. Brain and extra-axial spaces: There is age appropriate cortical atrophy and chronic ischemic periventricular white matter hypodensity. No acute infarct, hemorrhage or mass noted. Symmetrical bilateral parietal encephalomalacia consistent with old insults. Bones/joints: No acute changes. Soft tissues: No significant abnormality noted. Vasculature: No acute abnormality noted. Sinuses: Mucosal thickening and mild layering fluid involves the bilateral frontal, maxillary, sphenoid and ethmoid sinuses. Mastoid air cells: No mastoid effusion. Orbits: No significant abnormality noted. IMPRESSION: 1. Cerebral atrophy. No acute changes. 2. Acute on chronic sinusitis. ACT 112: Negative or not required by law. Electronically signed by Melissa Lawson 06-20-2024 2:06 PM
--- NOTE | 2024-06-20 14:09 | CT Scan Report ---
EXAM: CT Angiography Neck With Intravenous Contrast INDICATION: Neurologic deficit unspecified. TECHNIQUE: Routine carotid CT angiography protocol was performed with intravenous contrast. NASCET criteria using the distal ICAs for comparison were used for evaluation of stenoses. Sagittal and coronal reformatted images were created and reviewed. This CT exam was performed using one or more of the following dose reduction techniques: automated exposure control, adjustment of the mA and/or kV according to patient size, and/or use of iterative reconstruction technique. MIP reconstructed images were created and reviewed. CONTRAST: 119ml of Optiray 320 was administered intravenously. COMPARISON: None. FINDINGS: VASCULATURE: Right common carotid artery: No abnormality noted. No occlusion or significant stenosis. No dissection. Right internal carotid artery: No abnormality noted. Extracranial segment is patent with no occlusion or significant stenosis. No dissection. Right external carotid artery: No abnormality noted. No occlusion. Right vertebral artery: No abnormality noted. No occlusion or significant stenosis. No dissection. Left common carotid artery: No abnormality noted. No occlusion or significant stenosis. No dissection. Left internal carotid artery: No abnormality noted. Extracranial segment is patent with no occlusion or significant stenosis. No dissection. Left external carotid artery: No abnormality noted. No occlusion. Left vertebral artery: No abnormality noted. No occlusion or significant stenosis. No dissection. Aorta: There is mild atherosclerotic calcification of the aortic arch and proximal left subclavian artery. NECK: Bones/joints: Degenerative changes noted throughout the spine. No acute osseous abnormality seen. Soft tissues: No abnormality noted. Sinuses: Mild acute on chronic pansinusitis. Thyroid: Multiple nodules noted in the left thyroid the largest measuring 1.3 x 1.1 cm. Right thyroidectomy. Lung apices: Clear. CAROTID STENOSIS REFERENCE USING NASCET CRITERIA: % ICA stenosis = (1 - narrowest ICA diameter/diameter of distal cervical ICA) x 100. Mild - <50% stenosis. Moderate - 50-69% stenosis. Severe - 70-94% stenosis. Near occlusion - 95-99% stenosis. Occluded - 100% stenosis. IMPRESSION: 1. No angiographic abnormality in the neck. 2. Multinodular left thyroid. 3. Acute on chronic pansinusitis. ACT 112: Negative or not required by law. Electronically signed by Melissa Lawson 06-20-2024 2:08 PM
[2024-06-20 14:10] LABS: Albumin Globulin Ratio 1.4 (0.9-2); BUN Creatinine Ratio 28.9 (10-20); Creatinine Clr Calc Pharmacy 53.4 ml/min; Globulin 2.9 gm/dl (2.5-4.0); Total Protein 6.9 gm/dl (6.0-8.3)
[2024-06-20 14:14] LABS: Troponin I High Sensitivity 7.7 pg/ml (0-14)
[2024-06-20 14:28] LABS: Partial Thromboplastin Time 28 Seconds (21-31); Prothrombin Time 11.3 Seconds (9.0-12.0)
--- NOTE | 2024-06-20 16:04 | CT Scan Report ---
EXAM: CT Angiography Head With Intravenous Contrast INDICATION: Unspecified neurologic defect. TECHNIQUE: Axial computed tomographic angiography images of the head with intravenous contrast. Sagittal and coronal reformatted images were created and reviewed. This CT exam was performed using one or more of the following dose reduction techniques: automated exposure control, adjustment of the mA and/or kV according to patient size, and/or use of iterative reconstruction technique. MIP reconstructed images were created and reviewed. CONTRAST: 119ml of Optiray 320 was administered intravenously. COMPARISON: No relevant prior studies available. FINDINGS: Right internal carotid artery: Mild calcification of the intracranial right internal carotid artery. No stenosis, aneurysm or dissection. Right anterior cerebral artery: No abnormality noted. No occlusion or significant stenosis. No aneurysm. Right middle cerebral artery: No abnormality noted. No occlusion or significant stenosis. No aneurysm. Right posterior cerebral artery: No abnormality noted. No occlusion or significant stenosis. No aneurysm. Right vertebral artery: No significant abnormality noted. Left internal carotid artery: Mild calcification of the intracranial left internal carotid artery. No stenosis, aneurysm or dissection. Left anterior cerebral artery: No abnormality noted. No occlusion or significant stenosis. No aneurysm. Left middle cerebral artery: No abnormality noted. No occlusion or significant stenosis. No aneurysm. Left posterior cerebral artery: No abnormality noted. No occlusion or significant stenosis. No aneurysm. Left vertebral artery: No significant abnormality noted. Basilar artery: No abnormality noted. No occlusion or significant stenosis. No aneurysm. Other vasculature: Patent dural venous sinuses. Brain and extra-axial spaces: Bilateral parietal encephalomalacia. Sinuses: Chronic pansinusitis with acute superimposed layering fluid right maxillary sinus. IMPRESSION: 1. No acute angiographic abnormality in the brain. 2. Chronic pansinusitis with acute superimposed right maxillary sinusitis. ACT 112: Negative or not required by law. Electronically signed by Melissa Lawson 06-20-2024 4:03 PM
[2024-06-20] MEDS: ASPIRIN 81 MG ECTAB PO STA (17:10)
--- NOTE | 2024-06-20 17:22 | History & Physical Report ---
Date of Service June 20, 2024 Assessment & Plan (1) Stroke-like symptoms: Plan: Patient presented on 06/20 for 2 episodes of LLE weakness/heaviness leading to ambulatory dysfunction Similar recent episode of left upper extremity numbness and tingling Neurology consult appreciated Recommended starting patient on aspirin monotherapy (81 mg daily) Initial head/neck imaging revealed acute on chronic pansinusitis Brain MRI ordered, pending Echocardiogram with bubble study ordered, pending Patient passed dysphagia screen at bedside, okay to eat Continue atorvastatin A.m. CBC, BMP, A1c, fasting lipid panel (2) Atrial flutter: Plan: Rate controlled on arrival H/o atrial fibrillation; EKG on arrival revealed atrial flutter Follows w/ [place] [facility] outpatient Continue apixaban Continuous telemetry monitoring Cardiology consult appreciated in the event patient requires cardioversion Echocardiogram (as above) (3) Sinusitis: Plan: H/o chronic sinusitis Initial head/neck imaging revealed acute on chronic pansinusitis No leukocytosis; afebrile Unclear if this is contributory to symptoms (4) Ambulatory dysfunction: Plan: PT/OT evaluations appreciated Fall precautions Plan Disposition: Obs -admit to [facility] telemetry Full code Heart healthy diet, n.p.o. at midnight VTE PPx: On Eliquis History of Present Illness Chief Complaint: Neuro symptoms/deficits Primary Care Provider: Evans Cotter DO Mohini is an 84-year-old female with PMH of PMR, GERD, prediabetes, hypothyroidism, dyslipidemia, aortic regurgitation, and paroxysmal atrial fibrillation (on apixaban). She presented on 06/20 for 2 episodes of having "heavy left leg" and feeling lightheaded/presyncopal. Patient's family is at bedside and provides additional history. She reports that she developed 2 episodes of "heaviness" in her left leg where it felt like a "club". Both episodes lasted for approximately 30 seconds before improving. They occurred at 0730 and 1230 respectively. She experienced ambulatory dysfunction following this event and reports that she could not walk right, as if her left side was giving out on her. She also reports that she felt groggy following these events. All of her symptoms resolved prior to ED arrival. Family reports no slurred speech or facial droop. Patient notes that 2 weeks ago, she had a similar episode albeit with her upper extremity; she was eating lunch and she developed a heaviness in her left arm that lasted several seconds. She did not tell anybody about this. No recent falls or injuries to the head or neck. 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 Patient was told she should not take aspirin with Eliquis (which she takes for atrial fibrillation). Patient took her regular morning medicine today. No recent change in medications. No sick contacts. She denies any numbness or tingling in her left upper or lower extremities. Patient denies smoking, tobacco use, recent alcohol use. Patient is mildly hypertensive at 131/101 and tachypneic at 26 RPM at time of admission; vitals otherwise stable. ED course: Aspirin 81 mg p.o. ROS: Patient endorses LAZAR, nasal congestion/drainage, decreased hearing in the left ear (ongoing), ambulatory dysfunction, and intermittent episodes of LLE heaviness. Patient denies fever, chills, night-sweats, dizziness, lightheadedness, sinus pressure/pain, changes in vision, photophobia, slurred speech, facial droop, t innitus, pain in ears, chest pain, chest palpitations, SOB, abdominal pain, N/V/D, changes in urinary/bowel habits, or numbness/tingling in the left upper or lower extremities. Allergies Allergy/AdvReac Type Severity Reaction Status Date / Time adhesive Allergy Mild RASH AND Verified 06/20/24 17:55 ITCHING neomycin Allergy Mild RASH AND Verified 06/20/24 17:55 ITCHING polymyxin B Allergy Mild RASH AND Verified 06/20/24 17:55 ITCHING clarithromycin [From Biaxin] AdvReac Intermediate Nightmares Verified 06/20/24 17:55 doxycycline AdvReac Intermediate nausea / Verified 06/20/24 17:55 vomiting / abd pain hydrocodone AdvReac Intermediate NAUSEA Verified 06/20/24 17:55 morphine AdvReac Intermediate CONFUSION, Verified 06/20/24 17:55 HALLUCINATIONS Home Medications Medication Instructions Recorded Confirmed Type calcium 500 mg (as 1 tab PO DAILY 11/26/18 06/20/24 History carbonate)-vitamin D3 5 mcg (200 unit) tablet (Os-Gomez 500 + D3) cholecalciferol (vitamin D3) 125 5,000 unit PO DAILY 11/26/18 06/20/24 History mcg (5,000 unit) tablet (Vitamin D3) cetirizine 10 mg capsule (Zyrtec) 10 mg PO BID PRN ALLERGY RELIEF 12/09/21 06/20/24 History metoprolol succinate 50 mg 50 mg PO QAM #90 tabs 07/27/23 06/20/24 Rx tablet,extended release 24 hr omeprazole 40 mg capsule,delayed 40 mg PO DAILY PRN 09/20/23 06/20/24 Rx release HEARTBURN/INDIGESTION #90 caps atorvastatin 40 mg tablet 40 mg PO HS #90 tabs 01/15/24 06/20/24 Rx apixaban 5 mg tablet (Eliquis) 5 mg PO BID 06/20/24 06/20/24 History levothyroxine 88 mcg tablet 88 mcg PO DAILY 06/20/24 06/20/24 History (Synthroid) aspirin 81 mg tablet,delayed 81 mg PO QAM #30 tabs 06/21/24 Rx release Past Med/Surg History Problem List (Updated 06/21/24 @ 11:07 by Evans Hsu MD) TIA (transient ischemic attack) Ambulatory dysfunction Stroke-like symptoms Sinusitis Atrial flutter Low back pain radiating to right lower extremity Disc degeneration, lumbosacral Paroxysmal atrial fibrillation (Chronic) Followed by Cardiology Ascending aorta dilation Aortic regurgitation Dyslipidemia Hypothyroidism Prediabetes (Chronic) GERD (gastroesophageal reflux disease) Osteopenia (Chronic) [facility] Rheumatology Polymyalgia rheumatica (Chronic) [facility] Rheumatology Medical History (Updated 06/21/24 @ 11:07 by Evans Hsu MD) Right knee pain Calcium nephrolithiasis History of malignant melanoma of skin History of embolic stroke Identified on MRI during workup of headaches in 2017. [place] that this was related to underlying afib. No residual deficit Osteoarthritis Primarily of cervical region, hands, wrists, shoulder. APAP prn for pain. Recent corticosteroid injection of left shoulder and right knee Kidney stones Hypothyroidism Surgical History H/O knee surgery open. to remove bone cyst History of bilateral tubal ligation History of dilatation and curettage History of cystoscopy History of colonoscopy 10/2006, no further screening secondary to age History of cholecystectomy History of tonsillectomy History of adenoidectomy History of cataract surgery RT/LEFT Family History Mother Myocardial infarction Cardiac disorder Hypertension Kidney stones Father Cardiac disorder Sister Kidney stones Brother Kidney stones Urinary bladder cancer Denies family history of Colon cancer Ovarian cancer Prostate cancer Breast cancer Lung cancer Colorectal cancer Social History Smoking Status: Never smoker Second Hand Exposure: No; Do You Dip or Chew Tobacco: No; Hx Alcohol Use: Yes Alcohol type: wine Hx Substance Use: No Preferred Language: Azeri Communication Ability: Effective Visual Impairment: Limited Hearing Ability: Normal Verify Rep Required: No Beliefs That Will Affect Care: None marital status: / Current Living Situation: Alone Current Living Situation Comment: Home by herslef current occupational status: retired How many Children do You have: 3 Feels Safe at Home: Yes Childhood Exposure to Second-Hand Smoke: Yes Diet: regular caffeine: Yes Dental Care, Regularly: Yes Physical Activity Frequency: 3-4 Times per Week Physical Activity Frequency Comment: garden work 3-4 times a week, outside work Seatbelt Use: always Sunscreen Use: Yes Assistive Devices: None Review of Systems Review of Systems: See HPI above Physical Exam Physical Exam: General: no acute distress; pleasant affect; family at bedside; non-toxic appearing; frail appearing; cooperative; SpO2 95% on RA HEENT: normocephalic, atraumatic; no scleral icterus; PERRLA; vision and hearing intact; TMs pearly dean bilaterally; patient demonstrates ability to protrude a nd wiggle tongue bilaterally; patient demonstrates ability to smile, frown, and raise eyebrows without unilateral deficits Neck: supple; trachea midline; patient demonstrates ability to shrug shoulders against resistance and rotate neck bilaterally without dizziness/deficits Skin: warm, dry without signs of tenting; no cyanosis; no rashes, bruising, lesions, or erythema noted CV: chest wall NTP; irregular regular rhythm; S1/S2 normal; no murmurs/rubs/gallops; pulses intact and symmetric at radial, DP, and PT Lungs: no acute respiratory distress; symmetrical chest wall expansion; clear breath sounds across all lung villareal w/o adventitious sounds; no wheezing ABD: Soft, NTP; BS present; no rebound/guarding; no distention MSK: no tics or fasciculations; no edema noted in the LEs b/l, nonerythematous; 5/5 director advertising strength bilaterally; patient demonstrates ability to lift legs with 5/5 strength bilaterally; patient demonstrates ability to wiggle toes bilaterally Neuro: A&Ox3; normal mood and affect; fluent speech; no facial droop; no focal deficits appreciated; sensation intact and symmetric in the upper extremities, lower extremities, and face bilaterally assessed via light touch Results & Data Results & Data Vital Signs (Past 12 Hours) Vital Signs Temp Pulse Pulse Resp BP BP Pulse Ox 06/20/24 16:00 79 26 H 131/101 H 100 06/20/24 14:42 73 17 160/81 H 98 06/20/24 14:00 80 18 160/91 H 98 06/20/24 13:38 107 H 06/20/24 12:52 36.3 C L 90 20 178/93 H 93 O2 Del Method 06/20/24 16:00 Room Air 06/20/24 14:42 06/20/24 14:00 06/20/24 13:38 06/20/24 12:52 Room Air Laboratory Results Abnormal lab results 06/20/24 06/20/24 Range/Units 13:30 13:39 MCHC 31.7 L (32.0-36.0) g/dL Perry # (Auto) 0.96 H (0.11-0.59) K/uL Eos # (Auto) 0.62 H (0.00-0.50) K/uL Chloride 109 H (98-107) mmol/L POC Total CO2 23 L (24-31) mmol/L POC BUN 23 H (7-18) mg/dl BUN/Creatinine Ratio 28.9 H (10-20) Glucose 113 H (70-99(Fasting)) mg/dl POC Glucose (other) 110 H (70-99) mg/dl Diagnostic Findings Head CT 06/20/24 13:26 EXAM: CT Head Without Intravenous Contrast INDICATION: Unspecified neurologic defect. TECHNIQUE: Axial computed tomography images of the head/brain without intravenous contrast. Sagittal and/or coronal reformats are provided. Sagittal and coronal reformatted images were created and reviewed. This CT exam was performed using one or more of the following dose reduction techniques: automated exposure control, adjustment of the mA and/or kV according to patient size, and/or use of iterative reconstruction technique. COMPARISON: MRI 06/11/2017 FINDINGS: Limitations: None. Brain and extra-axial spaces: There is age appropriate cortical atrophy and chronic ischemic periventricular white matter hypodensity. No acute infarct, hemorrhage or mass noted. Symmetrical bilateral parietal encephalomalacia consistent with old insults. Bones/joints: No acute changes. Soft tissues: No significant abnormality noted. Vasculature: No acute abnormality noted. Sinuses: Mucosal thickening and mild layering fluid involves the bilateral frontal, maxillary, sphenoid and ethmoid sinuses. Mastoid air cells: No mastoid effusion. Orbits: No significant abnormality noted. IMPRESSION: 1. Cerebral atrophy. No acute changes. 2. Acute on chronic sinusitis. ACT 112: Negative or not required by law. Electronically signed by Melissa aLwson 06-20-2024 2:06 PM Head CTA 06/20/24 13:26 EXAM: CT Angiography Head With Intravenous Contrast INDICATION: Unspecified neurologic defect. TECHNIQUE: Axial computed tomographic angiography images of the head with intravenous contrast. Sagittal and coronal reformatted images were created and reviewed. This CT exam was performed using one or more of the following dose reduction techniques: automated exposure control, adjustment of the mA and/or kV according to patient size, and/or use of iterative reconstruction technique. MIP reconstructed images were created and reviewed. CONTRAST: 119ml of Optiray 320 was administered intravenously. COMPARISON: No relevant prior studies available. FINDINGS: Right internal carotid artery: Mild calcification of the intracranial right internal carotid artery. No stenosis, aneurysm or dissection. Right anterior cerebral artery: No abnormality noted. No occlusion or significant stenosis. No aneurysm. Right middle cerebral artery: No abnormality noted. No occlusion or significant stenosis. No aneurysm. Right posterior cerebral artery: No abnormality noted. No occlusion or significant stenosis. No aneurysm. Right vertebral artery: No significant abnormality noted. Left internal carotid artery: Mild calcification of the intracranial left internal carotid artery. No stenosis, aneurysm or dissection. Left anterior cerebral artery: No abnormality noted. No occlusion or significant stenosis. No aneurysm. Left middle cerebral artery: No abnormality noted. No occlusion or significant stenosis. No aneurysm. Left posterior cerebral artery: No abnormality noted. No occlusion or significant stenosis. No aneurysm. Left vertebral artery: No significant abnormality noted. Basilar artery: No abnormality noted. No occlusion or significant stenosis. No aneurysm. Other vasculature: Patent dural venous sinuses. Brain and extra-axial spaces: Bilateral parietal encephalomalacia. Sinuses: Chronic pansinusitis with acute superimposed layering fluid right maxillary sinus. IMPRESSION: 1. No acute angiographic abnormality in the brain. 2. Chronic pansinusitis with acute superimposed right maxillary sinusitis. ACT 112: Negative or not required by law. Electronically signed by Melissa Lawson 06-20-2024 4:03 PM Neck CTA 06/20/24 13:26 EXAM: CT Angiography Neck With Intravenous Contrast INDICATION: Neurologic deficit unspecified. TECHNIQUE: Routine carotid CT angiography protocol was performed with intravenous contrast. NASCET criteria using the distal ICAs for comparison were used for evaluation of stenoses. Sagittal and coronal reformatted images were created and reviewed. This CT exam was performed using one or more of the following dose reduction techniques: automated exposure control, adjustment of the mA and/or kV according to patient size, and/or use of iterative reconstruction technique. MIP reconstructed images were created and reviewed. CONTRAST: 119ml of Optiray 320 was administered intravenously. COMPARISON: None. FINDINGS: VASCULATURE: Right common carotid artery: No abnormality noted. No occlusion or significant stenosis. No dissection. Right internal carotid artery: No abnormality noted. Extracranial segment is patent with no occlusion or significant stenosis. No dissection. Right external carotid artery: No abnormality noted. No occlusion. Right vertebral artery: No abnormality noted. No occlusion or significant stenosis. No dissection. Left common carotid artery: No abnormality noted. No occlusion or significant stenosis. No dissection. Left internal carotid artery: No abnormality noted. Extracranial segment is patent with no occlusion or significant stenosis. No dissection. Left external carotid artery: No abnormality noted. No occlusion. Left vertebral artery: No abnormality noted. No occlusion or significant stenosis. No dissection. Aorta: There is mild atherosclerotic calcification of the aortic arch and proximal left subclavian artery. NECK: Bones/joints: Degenerative changes noted throughout the spine. No acute osseous abnormality seen. Soft tissues: No abnormality noted. Sinuses: Mild acute on chronic pansinusitis. Thyroid: Multiple nodules noted in the left thyroid the largest measuring 1.3 x 1.1 cm. Right thyroidectomy. Lung apices: Clear. CAROTID STENOSIS REFERENCE USING NASCET CRITERIA: % ICA stenosis = (1 - narrowest ICA diameter/diameter of distal cervical ICA) x 100. Mild - <50% stenosis. Moderate - 50-69% stenosis. Severe - 70-94% stenosis. Near occlusion - 95-99% stenosis. Occluded - 100% stenosis. IMPRESSION: 1. No angiographic abnormality in the neck. 2. Multinodular left thyroid. 3. Acute on chronic pansinusitis. ACT 112: Negative or not required by law. Electronically signed by Melissa Lawson 06-20-2024 2:08 PM ECG Additional Comments: ECG revealed atrial flutter with variable AV block at 81 bpm; QTc 439 Code Status & VTE Plan Code Status Full code (discussed with both patient and patient's family at bedside) VTE Prophylaxis Plan VTE Prophylaxis will be ordered: Yes Supervising Physician Co-Signing Physician Notes I personally saw and examined the patient. I independently reviewed the labs, EKG, imaging, problem list, medication list, past medical history and family his tory. I verified all solano points and agree with Nasir Otero PA-C with the following exceptions and/or additions: 84 year old female presents to the ER with intermittent episodes of unbalanced gait and left lower extremity weakness/heaviness without pain or numbness or back pain O/E HS irregular rhythm, regular rate, no murmurs, Chest CTAB, Abdo SNT, CN 2-> 12 intact, no extremity weakness of loss of sensation A/P Suspected TIA - Add aspirin, stroke order set used, TTE, consult neurology as not clearly TIAs New onset atrial flutter - history of a. fib and already on anticoagulation, rate controlled, consult cardiology to discuss ongoing options for management, unclear if dizziness related to this PG Care Time/CCT Total # of Minutes Spent Total Time Spent with Patient: Total time spent is greater than 50% in coordination of care (as documented) at patient's floor/unit and/or counseling patient: Coding [place] [address] INT INP/OBS CARE 3/75MIN Patient Type Established Medical Decision Making High Complexity Diagnoses Stroke-like symptoms R29.90 Atrial flutter I48.92 Sinusitis J32.9 Ambulatory dysfunction R26.2
--- NOTE | 2024-06-20 18:17 | Magnetic Resonance Report ---
EXAM: MR brain wo con CLINICAL HISTORY: R/O CVA 2 EPISODES OF A ''HEAVY LEFT LEG" PRESYNCOPAL VERTIGO TECHNIQUE: MRI of the brain was performed without contrast with multiplanar sequences obtained. COMPARISON: Comparison is made with prior MR imaging studies dated 06/11/2017. FINDINGS: Brain Parenchyma and posterior fossa: No evidence of acute infarction or hemorrhage. Progression in size of the previously noted bilateral parietal and cerebellar cortical and subcortical areas of encephalomalacia with newly developed areas of subcortical gliosis at the parietal regions. [id number] Still noted sheets of bilateral periventricular high T2 /OBX.5.1.1OBX.5.1.2 FLAIR signal, as well as bilateral cerebral and brainstem old lacunar infarcts./OBX.5.1.2/OBX.5.1 Ventricles and Sulci: Mildly dilated lateral ventricles, third ventricle, and fourth ventricle. Sylvian fissures, sulci, and cisterns are widened. Cranial Nerves: Normal course and appearance of cranial nerves identified. Vessels: No evidence of vascular malformations or aneurysms. Intracranial arteries and veins appear normal without evidence of stenosis or occlusion. Orbits and Skull Base: Bilateral cataract operations. Skull base structures are normal without evidence of abnormalities. IMPRESSION: 1. Progression of the bilateral cerebral and cerebellar areas of encephalomalacia. 2. Small vessel ischemic changes with bilateral cerebral and brain stem lacunar infarcts, stable findings. 3. Involutional brain changes. 4. No acute infarction or hemorrhage Electronically signed by Waldo Thomas 06-20-2024 6:17 PM
[2024-06-20] MEDS ORDERED: ONDANSETRON INJ 2 MG/ML 2 ML VIAL IV PRN (21:12)
[2024-06-20] MEDS ORDERED: ACETAMINOPHEN 325 MG TAB PO PRN (21:12)
[2024-06-20] MEDS ORDERED: PHARMACIST DISCHARGE MED REC CONSULT PRN (21:12)
[2024-06-20] MEDS ORDERED: PANTOprazole 40 MG TAB PO PRN (21:15)
[2024-06-20] MEDS: APIXABAN 5 MG TABLET PO SCH (22:08)
[2024-06-20] MEDS: ATORVASTATIN 40 MG TAB PO SCH (22:08)
[2024-06-21 04:42] VITALS: O2SAT 96
[2024-06-21] MEDS: LEVOTHYROXINE SODIUM 88 MCG TABLET PO SCH (05:29)
[2024-06-21 06:24] LABS: Basophils # (auto) 0.08 K/uL (0.00-0.20); Eosinophils # (auto) 0.76 K/uL (0.00-0.50); Eosinophils % (auto) 9.5 %; Hematocrit (blood only) 36.6 % (37.0-47.0); Hemoglobin 11.6 g/dl (12.0-16.0); Immature Granulocytes # (auto) 0.02 K/uL (0.01-0.20); Immature Granulocytes % (auto) 0.2 %; Mean Corpuscular Hemoglobin 27.3 pg (25.0-34.0); Mean Corpuscular Hgb Conc 31.7 g/dL (32.0-36.0); Mean Corpuscular Volume 86.1 fL (80.0-100.0); Mean Platelet Volume 10.6 fL (9.4-12.4); Monocytes # (auto) 0.94 K/uL (0.11-0.59); Monocytes % (auto) 11.7 %; Neutrophils # (auto) 3.81 K/uL (1.40-6.50); Neutrophils % (auto) 47.6 %; Platelet Count 248 K/uL (130-400); RDW Coefficient of Variation 14.1 % (11.5-14.5); RDW Standard Deviation 44.3 fL (36.4-46.3); Red Blood Count 4.25 M/uL (4.20-5.40); White Blood Count 8.01 K/ul (4.8-10.8)
[2024-06-21 06:46] LABS: BUN Creatinine Ratio 23.6 (10-20); Calcium 8.5 mg/dl (8.6-10.3); Chol HDL Ratio 2.9 (0-5); Creatinine Clr Calc Pharmacy 54.5 ml/min; Potassium 4.1 mmol/L (3.5-5.1)
[2024-06-21 07:14] LABS: Estimated Average Glucose 134 mg/dl; Hemoglobin A1C 6.3 % (4.5-5.6)
--- NOTE | 2024-06-21 07:53 | Electrocardiogram Report ---
Test Reason : Blood Pressure : */* mmHG Vent. Rate : 81 BPM Atrial Rate : 394 BPM P-R Int : * ms QRS Dur : 74 ms QT Int : 378 ms P-R-T Axes : * -21 -13 degrees QTcB Int : 439 ms Atrial flutter with variable A-V block Low voltage QRS Cannot rule out Anterior infarct When compared with ECG of 09-Jun-2018 07:17, Significant changes have occurred Confirmed by Shalom Beltrán ([id number]) on 06/21/2024 7:53:25 AM Referred By: REFERRED SELF Confirmed By: Shalom Beltrán
[2024-06-21 08:21] VITALS: RESP 16
[2024-06-21] MEDS: ASPIRIN 81 MG ECTAB PO SCH (08:56)
[2024-06-21] MEDS: METOPROLOL SUCC 50MG EXT REL TAB PO SCH (08:56)
--- NOTE | 2024-06-21 09:59 | XCELERA ---
[id number] \\[email or web address]\[id number]
--- NOTE | 2024-06-21 11:16 | Neurology Consultation ---
Date of Consultation June 21, 2024 Assessment & Plan (1) TIA (transient ischemic attack): Plan 84-year-old female with probable recurrent TIA characterized by 2 recent episodes of left lower extremity weakness and heaviness, preceded by an episode of left upper extremity weakness and heaviness about 2 weeks ago. 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 No significant vascular lesion identified on CTA of the head and neck. I agree with the addition of aspirin 81 mg/day. Continue with Eliquis and atorvastatin as ordered. May allow for permissive hypertension, systolic blood pressure 140-160 mmHg. Current blood pressure appropriate, may continue with metoprolol. PT/OT consultations as ordered. May follow-up with myself or an [facility] in neurology clinic in 2 to 3 weeks after discharge. History of Present Illness Reason for Consultation: TIA Requesting Physician: Branden Attending Physician: [place] Means History of Present Illness The patient is an 84-year-old female who presented to the emergency department yesterday afternoon for further assessment of recurrent brief episodes of left- sided weakness. She recalls having a transient episode of left upper extremity weakness, heaviness, lasting less than 1 minute, about 2 weeks ago. More recently, however, she had to brief episodes of left lower extremity weakness and heaviness with some associated difficulty standing as observed by family. She denies any associated diplopia, dysarthria, vertigo, or headache. She has a history of atrial fibrillation and has been compliant with Eliquis. Past medical history notable for acute bilateral cerebellar and bilateral cerebral hemispheric infarcts occurring in March 2017. (I reviewed the images from the brain MRI completed at that time.) She has been neurologically stable in the context of her current hospitalization without recurrence of left-sided weakness or heaviness. A CT of the head revealed cerebral atrophy and symmetric bilateral parietal encephalomalacia likely consistent with old chronic infarcts. CTA of the head and neck negative for significant vascular lesion. Brain MRI completed last night was negative for acute infarct. Chronic bilateral cerebellar and posterior cortical cerebral encephalomalacia related to prior ischemic insults noted. I independently reviewed these images. Aspirin 81 mg/ day has been started, Eliquis and atorvastatin continued. Allergies Allergy/AdvReac Type Severity Reaction Status Date / Time adhesive Allergy Mild RASH AND Verified 06/20/24 17:55 ITCHING neomycin Allergy Mild RASH AND Verified 06/20/24 17:55 ITCHING polymyxin B Allergy Mild RASH AND Verified 06/20/24 17:55 ITCHING clarithromycin [From Biaxin] AdvReac Intermediate Nightmares Verified 06/20/24 17:55 doxycycline AdvReac Intermediate nausea / Verified 06/20/24 17:55 vomiting / abd pain hydrocodone AdvReac Intermediate NAUSEA Verified 06/20/24 17:55 morphine AdvReac Intermediate CONFUSION, Verified 06/20/24 17:55 HALLUCINATIONS Home Medications Medication Instructions Recorded Confirmed Type calcium 500 mg (as 1 tab PO DAILY 11/26/18 06/20/24 History carbonate)-vitamin D3 5 mcg (200 unit) tablet (Os-Gomez 500 + D3) cholecalciferol (vitamin D3) 125 5,000 unit PO DAILY 11/26/18 06/20/24 History mcg (5,000 unit) tablet (Vitamin D3) cetirizine 10 mg capsule (Zyrtec) 10 mg PO BID PRN ALLERGY RELIEF 12/09/21 06/20/24 History metoprolol succinate 50 mg 50 mg PO QAM #90 tabs 07/27/23 06/20/24 Rx tablet,extended release 24 hr omeprazole 40 mg capsule,delayed 40 mg PO DAILY PRN 09/20/23 06/20/24 Rx release HEARTBURN/INDIGESTION #90 caps atorvastatin 40 mg tablet 40 mg PO HS #90 tabs 01/15/24 06/20/24 Rx apixaban 5 mg tablet (Eliquis) 5 mg PO BID 06/20/24 06/20/24 History levothyroxine 88 mcg tablet 88 mcg PO DAILY 06/20/24 06/20/24 History (Synthroid) Patient History Medical History (Updated 06/21/24 @ 11:07 by Evans Hsu MD) Right knee pain Calcium nephrolithiasis History of malignant melanoma of skin History of embolic stroke Identified on MRI during workup of headaches in [address]. [address] that this was related to underlying afib. No residual deficit Osteoarthritis Primarily of cervical region, hands, wrists, shoulder. APAP prn for pain. Recent corticosteroid injection of left shoulder and right knee Kidney stones Hypothyroidism Surgical History H/O knee surgery open. to remove bone cyst History of bilateral tubal ligation History of dilatation and curettage History of cystoscopy History of colonoscopy 10/2006, no further screening secondary to age History of cholecystectomy History of tonsillectomy History of adenoidectomy History of cataract surgery RT/LEFT Family History Mother Myocardial infarction Cardiac disorder Hypertension Kidney stones Father Cardiac disorder Sister Kidney stones Brother Kidney stones Urinary bladder cancer Denies family history of Colon cancer Ovarian cancer Prostate cancer Breast cancer Lung cancer Colorectal cancer Social History Smoking Status: Never smoker Second Hand Exposure: No; Do You Dip or Chew Tobacco: No; Tobacco Cessation Education Requested by Patient: No Hx Alcohol Use: Yes Alcohol type: wine Hx Substance Use: No Preferred Language: Eritrean Communication Ability: Effective Visual Impairment: Limited 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: No Beliefs That Will Affect Care: None marital status: / Current Living Situation: Alone Current Living Situation Comment: Home by herslef current occupational status: retired How many Children do You have: 3 Other Information That Helps Us Care for You: No Feels Safe at Home: Yes Safety Concerns: Feels Safe At This Time Childhood Exposure to Second-Hand Smoke: Yes Diet: regular caffeine: Yes Dental Care, Regularly: Yes Physical Activity Frequency: 3-4 Times per Week Physical Activity Frequency Comment: garden work 3-4 times a week, outside work Seatbelt Use: always Sunscreen Use: Yes Assistive Devices: None Review of Systems Constitutional: no fever and no chills Eyes: no blind spots and no diplopia Ear, Nose, Mouth, Throat: no hearing loss Respiratory: no cough and no dyspnea Cardiovascular: no chest pain and no palpitations Gastrointestinal: no nausea and no vomiting Genitourinary: no dysuria Musculoskeletal: no myalgia Integumentary: no rash and no lesions Neurologic: as per Subjective / HPI Psychiatric: no depression and no anxiety Hematologic / Lymphatic: no easy bleeding and no easy bruising Exam (Neuro) Constitutional: well developed and well nourished; no acute distress Eyes: normal visual villareal by confrontation, PERRL and EOM intact bilaterally; no nystagmus Neurologic: Oriented to:: Person, Place and Time Memory: Short Term Intact and Remote Intact Attention: Span Intact and Concentration Intact Speech Fluency: negative Dysarthria or Dysfluency Speech Aphasia: negative Aphasia Fund of Knowledge: Current Events, Past History and Vocabulary Cranial Nerves: Normal II, III, IV, , V, VII, VIII, IX, X, XI and XII Motor Strength: Normal Lower Extremities and Normal Upper Extremities Motor Tone: Normal Lower Extremities and Normal Upper Extremities Muscle Bulk/Involuntary Movements: No Involuntary Movements; negative Muscle Atrophy Sensation: Light Touch Intact, Pain/Temperature Intact and Proprioception Intact Coordination: Normal; negative Finger-Nose Abnormal or Heel-Garcia Abnormal Deep Tendon Reflexes: Rt Triceps: 2+, Lt Triceps: 2+, Rt Biceps: 2+, Lt Biceps: 2+, Rt Brachioradialis: 2+, Lt Brachioradialis: 2+, Rt Patellar: 2+, Lt Patellar: 2+, Rt Ankle: 1+ and Lt Ankle: 1+ Special Tests: negative Babinski Present Results & Data Vital Signs (Past 12 Hours) Vital Signs Temp Pulse Pulse Resp BP Pulse Ox O2 Del Method 06/21/24 08:20 36.6 C 70 16 140/83 96 Room Air 06/21/24 07:22 74 06/21/24 03:56 36.7 C 72 18 124/69 96 Room Air Laboratory Results WBC 8.01, hemoglobin 11.6, hematocrit 36.6, platelet count 248, sodium 141, potassium 4.1, BUN 17, creatinine 0.72, glucose 107, hemoglobin A1c 6.3, calcium 8.5, magnesium 2.1, AST 14, ALT 12, triglycerides 76, cholesterol 114, LDL 60, VLDL 15, HDL [address] of the head, CTA of the head and neck, and brain MRI are as described in the HPI, I independently reviewed these images. Echocardiogram reveals normal left ventricular systolic function, no regional wall motion abnormalities, mild concentric LVH, EF 55 to 60%, borderline dilated ascending aorta, no interatrial shunt, left atrium mildly dilated. Coding Level of Care Code 56744 INT INP/OBS CARE 3/75MIN Diagnoses TIA (transient ischemic attack) G45.9 Time Spent (min) 90 Comment Total time includes patient contact, chart review, counseling, note preparation
[2024-06-21 11:20] VITALS: BP 140/95; PULSE 77; TEMP 97.5
--- NOTE | 2024-06-21 11:55 | Cardiology Consultation ---
Date of Consultation June 21, 2024 Assessment & Plan (1) Atrial flutter: -Asymptomatic. -Ventricular response well-controlled on metoprolol succinate. -Continue long-term anticoagulation with Eliquis. -Stable for hospital discharge. (2) Paroxysmal atrial fibrillation: -Diagnosed on an outpatient monitor back in 2016. -Continue rate control and long-term anticoagulation. (3) Ascending aorta dilation: -Borderline dilatation on current echocardiogram at 3.6 cm in diameter. -Being followed with yearly surveillance echocardiograms. (4) TIA (transient ischemic attack): -Management per neurology. -Agree with addition of low-dose aspirin. History of Present Illness Attending Physician: [place] Means History of Present Illness Mohini Grier is an 84-year-old female admitted yesterday with some brief neurologic complaints. She was noted to be in atrial flutter on the monitor. This consultation was ordered to assist in her cardiac management. Of note, the patient typically follows with Dr. Plunkett in the outpatient setting. The patient was in her usual state of health until yesterday when she experienced 2 brief episodes of left lower extremity weakness and "heaviness" each episode lasted approximately 15 seconds. She also had an episode of left upper extremity weakness. She described her arm as feeling like a "club." This also lasted approximately 15 seconds. She told her family who suggested she proceed to the emergency room for an evaluation. On arrival here, the patient was asymptomatic. She was noted to be in atrial flutter with a controlled ventricular response. Hospitalization was recommended. The patient was diagnosed with paroxysmal atrial fibrillation back in 2016 when an MRI scan revealed several infarctions. An outpatient monitor revealed heart dysrhythmia. She has been treated with Eliquis and metoprolol succinate since that time. The patient's atrial dysrhythmia remains asymptomatic. She specifically denies palpitations. Currently, patient is resting comfortably in bed and without complaints. Her daughter is at the bedside. Past medical and surgical history 1. Hypertension 2. Hypercholesterolemia 3. 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 LVH 6. Mild aortic insufficiency 7. Dilated acing thoracic aorta 8. Dilated aortic root 9. Hyperglycemia 10. Hypothyroidism 11. Polymyalgia rheumatica 12. GERD 13. Chronic low back pain 14. Nephrolithiasis 15. History of malignant melanoma 16. DJD 17. Cholecystectomy 18. Tubal ligation 19. Tonsillectomy 20. Bilateral intraocular lens implants Social history , lives alone No tobacco or alcohol Family history Mother at 98 from CHF Father at 95 from lung carcinoma Review of systems A 10 point review of systems was undertaken and negative except for that described above. Allergies Allergy/AdvReac Type Severity Reaction Status Date / Time adhesive Allergy Mild RASH AND Verified 06/20/24 17:55 ITCHING neomycin Allergy Mild RASH AND Verified 06/20/24 17:55 ITCHING polymyxin B Allergy Mild RASH AND Verified 06/20/24 17:55 ITCHING clarithromycin [From Biaxin] AdvReac Intermediate Nightmares Verified 06/20/24 17:55 doxycycline AdvReac Intermediate nausea / Verified 06/20/24 17:55 vomiting / abd pain hydrocodone AdvReac Intermediate NAUSEA Verified 06/20/24 17:55 morphine AdvReac Intermediate CONFUSION, Verified 06/20/24 17:55 HALLUCINATIONS Home Medications Medication Instructions Recorded Confirmed Type calcium 500 mg (as 1 tab PO DAILY 11/26/18 06/20/24 History carbonate)-vitamin D3 5 mcg (200 unit) tablet (Os-Gomez 500 + D3) cholecalciferol (vitamin D3) 125 5,000 unit PO DAILY 11/26/18 06/20/24 History mcg (5,000 unit) tablet (Vitamin D3) cetirizine 10 mg capsule (Zyrtec) 10 mg PO BID PRN ALLERGY RELIEF 12/09/21 06/20/24 History metoprolol succinate 50 mg 50 mg PO QAM #90 tabs 07/27/23 06/20/24 Rx tablet,extended release 24 hr omeprazole 40 mg capsule,delayed 40 mg PO DAILY PRN 09/20/23 06/20/24 Rx release HEARTBURN/INDIGESTION #90 caps atorvastatin 40 mg tablet 40 mg PO HS #90 tabs 01/15/24 06/20/24 Rx apixaban 5 mg tablet (Eliquis) 5 mg PO BID 06/20/24 06/20/24 History levothyroxine 88 mcg tablet 88 mcg PO DAILY 06/20/24 06/20/24 History (Synthroid) Patient History Medical History (Updated 06/21/24 @ 11:07 by Evans Hsu MD) Right knee pain Calcium nephrolithiasis History of malignant melanoma of skin History of embolic stroke Identified on MRI during workup of headaches in 2017. [place] that this was related to underlying afib. No residual deficit Osteoarthritis Primarily of cervical region, hands, wrists, shoulder. APAP prn for pain. Recent corticosteroid injection of left shoulder and right knee Kidney stones Hypothyroidism Surgical History H/O knee surgery open. to remove bone cyst History of bilateral tubal ligation History of dilatation and curettage History of cystoscopy History of colonoscopy 10/2006, no further screening secondary to age History of cholecystectomy History of tonsillectomy History of adenoidectomy History of cataract surgery RT/LEFT Family History Mother Myocardial infarction Cardiac disorder Hypertension Kidney stones Father Cardiac disorder Sister Kidney stones Brother Kidney stones Urinary bladder cancer Denies family history of Colon cancer Ovarian cancer Prostate cancer Breast cancer Lung cancer Colorectal cancer Social History Smoking Status: Never smoker Second Hand Exposure: No; Do You Dip or Chew Tobacco: No; Tobacco Cessation Education Requested by Patient: No Hx Alcohol Use: Yes Alcohol type: wine Hx Substance Use: No Preferred Language: Greek Communication Ability: Effective Visual Impairment: Limited Hearing Ability: Normal 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 Beliefs That Will Affect Care: None marital status: / Current Living Situation: Alone Current Living Situation Comment: Home by herslef current occupational status: retired How many Children do You have: 3 Other Information That Helps Us Care for You: No Feels Safe at Home: Yes Safety Concerns: Feels Safe At This Time Childhood Exposure to Second-Hand Smoke: Yes Diet: regular caffeine: Yes Dental Care, Regularly: Yes Physical Activity Frequency: 3-4 Times per Week Physical Activity Frequency Comment: garden work 3-4 times a week, outside work Seatbelt Use: always Sunscreen Use: Yes Assistive Devices: None Physical Exam Physical Exam: In general this is a well-developed well-nourished white female in no acute distress. HEENT exam is negative. Neck reveals normal carotid upstrokes without bruits. Jugular venous pressure is flat at 90. There is no thyromegaly. Cardiovascular exam reveals an irregular rhythm with distant heart sounds. No obvious murmurs.. Lungs are clear without rales, rhonchi, or wheezes. Abdomen is soft without bruits. Extremities reveal intact radial artery and posterior tibial pulses bilaterally. There is no peripheral edema. Results & Data Vital Signs (Past 12 Hours) Vital Signs Temp Pulse Pulse Resp BP Pulse Ox O2 Del Method 06/21/24 11:19 36.4 C L 77 16 140/95 96 Room Air 06/21/24 08:20 36.6 C 70 16 140/83 96 Room Air 06/21/24 07:22 74 06/21/24 03:56 36.7 C 72 18 124/69 96 Room Air Laboratory Results Potassium, magnesium, and high-sensitivity troponins all normal. Diagnostic Findings Echocardiogram notes normal left ventricular systolic function with an ejection fraction of 55 to 60%. There is mild LVH along with mild aortic insufficiency. There is mild mitral crustacean. The ascending thoracic aorta is borderline at 3.6 cm in diameter. Bubble study is negative. Compared with an echocardiogram performed in December 2023, no significant change. PG Care Time/CCT Total # of Minutes Spent Total Time Spent with Patient: Total time spent is greater than 50% in coordination of care (as documented) at patient's floor/unit and/or counseling patient: Coding Level of Care Code 79516 INT INP/OBS CARE 3/75MIN Diagnoses Atrial flutter I48.92 Paroxysmal atrial fibrillation I48.0 Ascending aorta dilation I77.810 TIA (transient ischemic attack) G45.9
[2024-06-21] MEDS ORDERED: STROKE PATIENT DISCHARGE STA (11:56)
--- NOTE | 2024-06-21 11:58 | Discharge Summary ---
Discharge Summary Date of Service June 21, 2024 Principal Dx & Hospital Course #1 = Principal Diagnosis (1) Stroke-like symptoms: Patient presented on 06/20 for 2 episodes of LLE weakness/heaviness leading to ambulatory dysfunction. Patient w/ similar recent episode of LUE numbness and tingling neurology consulted - recommended aspirin monotherapy daily follow up with their office outpatient. CBC/BMP stable Hgb A1c 6.3% Cholesterol panel WNL, LDL 60 on statin outpatient - contine on discharge. head CT: cerebral atrophy. acute on chronic sinusitis. no acute changes head CTA: no acute angiographic abnormality in brain. Chronic pansinusitis w/ acute superimposed right maxillary sinusitis neck CTA: no angiographic abnormality in neck. multinodular left thryoid. acute on chronic pansinusitis Brain MRI: progression of b/l cerebral & cerebellar areas of encephalomalacia. 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 involutional brain changes. no acute infarction/hemorrhage. Echo: LV systolic function normal. no regional wall motion abnormalities. EF 55- 60%. mild aortic regurgitation. borderline dilated ascending aorta. injection of contrast documented no interarterial shunt. no change from previous echo in December 2023 (2) Atrial flutter: Patient w/ hx of A fib on Eliquis Cardiology consulted asymptomatic a flutter ventricular response controlled on metoprolol succinate stable for hospital discharge. Continue Eliquis/Metoprolol on d/c (3) Sinusitis: H/o chronic sinusitis Initial head/neck imaging revealed acute on chronic pansinusitis No leukocytosis; afebrile Unclear if this is contributory to symptoms defer to outpatient PCP for further workup. (4) Ambulatory dysfunction: PT/OT evaluations - patient safe to return home Plan Updated family at bedside 06/21 Admission HPI Per Admitting Provider Mohini is an 84-year-old female with PMH of PMR, GERD, prediabetes, hypothyroidism, dyslipidemia, aortic regurgitation, and paroxysmal atrial fibrillation (on apixaban). She presented on 06/20 for 2 episodes of having "heavy left leg" and feeling lightheaded/presyncopal. Patient's family is at bedside and provides additional history. She reports that she developed 2 episodes of "heaviness" in her left leg where it felt like a "club". Both episodes lasted for approximately 30 seconds before improving. They occurred at 0730 and 1230 respectively. She experienced ambulatory dysfunction following this event and reports that she could not walk right, as if her left side was giving out on her. She also reports that she felt groggy following these events. All of her symptoms resolved prior to ED arrival. Family reports no slurred speech or facial droop. Patient notes that 2 weeks ago, she had a similar episode albeit with her upper extremity; she was eating lunch and she developed a heaviness in her left arm that lasted several seconds. She did not tell anybody about this. No recent falls or injuries to the head or neck. 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 Patient was told she should not take aspirin with Eliquis (which she takes for atrial fibrillation). Patient took her regular morning medicine today. No recent change in medications. No sick contacts. She denies any numbness or tingling in her left upper or lower extremities. Patient denies smoking, tobacco use, recent alcohol use. Patient is mildly hypertensive at 131/101 and tachypneic at 26 RPM at time of admission; vitals otherwise stable. ED course: Aspirin 81 mg p.o. ROS: Patient endorses LAZAR, nasal congestion/drainage, decreased hearing in the left ear (ongoing), ambulatory dysfunction, and intermittent episodes of LLE heaviness. Patient denies fever, chills, night-sweats, dizziness, lightheadedness, sinus pressure/pain, changes in vision, photophobia, slurred speech, facial droop, tinnitus, pain in ears, chest pain, chest palpitations, SOB, abdominal pain, N/V/D, changes in urinary/bowel habits, or numbness/tingling in the left upper or lower extremities. Discharge Exam Constitutional WD/WN, vitals as above Eyes PERRL, conjunctivae normal, anicteric sclerae Respiratory normal respiratory effort, lungs clear to auscultation Cardiovascular irregularly irregular, no edema Psychiatric A+Ox3, euthymic affect Discharge Plan Discharge Items Patient Disposition: Home - Self-Care Reason For Visit: TIA SYMPTOMS Discharge Diagnosis: TIA Activity: Resume your previous activity Non-emergency contact: Primary Care Provider Call non-emergency contact if: you have any medication questions and your symptoms worsen Follow-up/Referrals: Evans Hsu MD [Physician] - (PLEASE CALL DR HSU'S OFFICE TO SCHEDULE AN APPOINTMENT) Evans Cotter DO [Primary Care Provider] - 06/27/24 2:45 pm Diet: Heart Healthy Addtl Attending Provider Instructions: Ms. Grier, You were recently hospitalized for stroke like symptoms. Your workup was negative for a stroke. You were evaluated by a neurologist and found to have a TIA. Please see recommendations below regarding your discharge. 1. Please take a daily Aspirin 81mg 2. Continue the remainder of your outpatient medications. 3. Please follow up with neurology after discharge. 4. Please follow up with your director of curriculum 5. Please follow up with your PCP within 1-2 weeks of discharge. If you develop any worsening weakness, slurred speech, dizziness, chest pain, or shortness of breath please report to the ER for further care. Sincerely, Jennifer Brink PA-C Pending Studies at Discharge: No Stand-Alone Forms: My daPulse, Smoking Cessation, Medications to Prevent Stroke Medications and DC Order Prescriptions: New aspirin 81 mg Tablet,Delayed Release (Dr/Ec) 81 mg PO QAM Qty: 30 0RF Continued omeprazole 40 mg capsule,delayed release(DR/EC) 40 mg PO DAILY PRN (Reason: HEARTBURN/INDIGESTION) Qty: 90 3RF atorvastatin 40 mg tablet 40 mg PO HS Qty: 90 3RF metoprolol succinate 50 mg tablet extended release 24 hr 50 mg PO QAM Qty: 90 3RF calcium carbonate-vitamin D3 [Os-Gomez 500 + D3] 500 mg(1,250mg) -200 unit Tablet 1 tab PO DAILY Rx Instructions: Unable to verify OTC meds at this date/time. cholecalciferol (vitamin D3) [Vitamin D3] 5,000 unit Tablet 5,000 unit PO DAILY Rx Instructions: Unable to verify OTC meds at this date/time. Zyrtec 10 mg capsule 10 mg PO BID PRN (Reason: ALLERGY RELIEF) Rx Instructions: Unable to verify OTC meds at this date/time. levothyroxine [Synthroid] 88 mcg tablet 88 mcg PO DAILY Eliquis 5 mg tablet 5 mg PO BID Rx Instructions: Pt get samples from since she is in the doughnut hole. Discharge Orders: Discharge Order (Routine); Ordered 06/21/24 Ordered By: Jennifer Almonte/Other Patient Handouts: Aspirin Oral Tablet, Prediabetes, 5 Steps for Eating Healthier Admission Data Admit Date/Time: 06/20/24 18:31 Attending Provider: [place] Means Admit Provider: Rey Briscoe Primary Care Provider: Evans Cotter Other Providers: Rey Briscoe; Shalom Beltrán; Evans Hsu Other Interventions: Discharge Summary Assessment (RN) Last Done: 06/21/24 12:11 Hospital Stay Data Consultations 06/20/24 17:39 ED Decision to Admit Stat 06/20/24 21:12 Consult Cardiology Routine Consult Neurology Routine Diagnostic Imagining Performed 06/20/24 13:26 CT angio head w con Stat CT angio neck with con Stat CT head/brain wo con Stat 06/20/24 17:03 MR brain wo con Stat Pending Results Patient Have Any Pending Studies at Discharge: No Discharge Instructions Given to Patient (Per Discharging Provider) Ms. Grier, You were recently hospitalized for stroke like symptoms. Your workup was negative for a stroke. You were evaluated by a neurologist and found to have a TIA. Please see recommendations below regarding your discharge. 1. Please take a daily Aspirin 81mg 2. Continue the remainder of your outpatient medications. 3. Please follow up with neurology after discharge. 4. Please follow up with your director of curriculum 5. Please follow up with your PCP within 1-2 weeks of discharge. If you develop any worsening weakness, slurred speech, dizziness, chest pain, or shortness of breath please report to the ER for further care. Sincerely, Jennifer Brink PA-C Total Time Total Time Spent Total Time Spent (In Minutes): 35 Total Time Includes: Examination of the Patient, Discharge Planning and Medication Reconciliation Coding Level of Care Code 86804 INP/OBS DISCH >30 MIN Diagnoses Stroke-like symptoms R29.90 Atrial flutter I48.92 Sinusitis J32.9 Ambulatory dysfunction R26.2
--- NOTE | 2024-06-23 10:15 | Pharmacy Report ---
Pharmacist Stroke Counseling - Date of Service June 23, 2024 - Scope: Pharmacy has been consulted to provide medication discharge counseling for this patient admitted with [ischemic stroke] [hemorrhagic stroke] [transient ischemic attack] as per the Pharmacist Discharge Counseling for Stroke Patients Prot ocol. - Medications on Discharge: Home Medications Medication Instructions Recorded Confirmed calcium 500 mg (as 1 tab PO DAILY 11/26/18 06/20/24 carbonate)-vitamin D3 5 mcg (200 unit) tablet (Os-Gomez 500 + D3) cholecalciferol (vitamin D3) 125 5,000 unit PO DAILY 11/26/18 06/20/24 mcg (5,000 unit) tablet (Vitamin D3) cetirizine 10 mg capsule (Zyrtec) 10 mg PO BID PRN ALLERGY RELIEF 12/09/21 06/20/24 apixaban 5 mg tablet (Eliquis) 5 mg PO BID 06/20/24 06/20/24 levothyroxine 88 mcg tablet 88 mcg PO DAILY 06/20/24 06/20/24 (Synthroid) New Rx's Medication Instructions Recorded metoprolol succinate 50 mg 50 mg PO QAM #90 tabs 07/27/23 tablet,extended release 24 hr omeprazole 40 mg capsule,delayed 40 mg PO DAILY PRN 09/20/23 release HEARTBURN/INDIGESTION #90 caps atorvastatin 40 mg tablet 40 mg PO HS #90 tabs 01/15/24 aspirin 81 mg tablet,delayed 81 mg PO QAM #30 tabs 06/21/24 release - Action: The above medications, specifically ones for stroke treatment/prophylaxis, have been reviewed in detail with the patient and/or patient advertising sales representative(s) prior to discharge. This includes indication, common adverse reactions, drug interactions, and medication administration. Medication counseling has been employed using the teach-back method to ensure understanding. - Outcome: The patient and/or patient advertising sales representative(s) have demonstrated understanding of the medications. Additional comments: Aspirin 81mg po daily was added on discharge. Spoke with patient to be sure she was able to obtain/start medication and to review side effects. She has started medication and expressed awareness of how to take as well as possible side effects to watch for. She had no further questions/concerns at this time and has her follow up appointment this sunday. Thank you for allowing pharmacy to be involved in the care of this patient. Please call [phone] with any additional questions
== END 2024-06-21 13:14 | disposition home or self-care (01) ==
LOC: 2N 12:49 → ED 12:49 → SUATTDRO 18:31 → 2N 20:50